=== PATIENT | male | born 1950 | race Caucasian/White ===

== ENCOUNTER 2018-11-23 09:52 | Emergency (ER) | payer MEDICARE ==
--- NOTE | 2018-11-23 10:20 | ED ---
Complex/Multi-Sys Presentation - HPI Summary HPI Summary: This pt is a 68 Y/O M presenting to [facility] accompanied by his with a CC of abdominal pain and lower extremity swelling. He states that his legs have been swollen for a week and has had intermittent abdominal pain. He also states that he has SOB while ambulating but states that he has no issues while lying down. He states that he has episodic L anterior chest pain that he believes is a result of nerve pain that has been present for a month. He denies any fever, chills, N/V, and headaches. He states that he has a PMHx of CAD, CHF, HTN, possible stage 4 kidney cancer, and anemia. - History Of Current Complaint Chief Complaint: EDShortnessOfBreath Hx Obtained From: Patient Onset/Duration: Gradual Onset, Lasting Weeks - 1, Still Present Timing: Constant Severity Currently: None Severity Initially: Moderate Aggravating Factor(s): movement causes SOB Alleviating Factor(s): lying down Associated Signs And Symptoms: Positive: SOB, Chest Pain, Edema, Abdominal Pain , Other - L neck pain. Negative: Headache, Nausea, Vomiting, Fever - Allergies/Home Medications Allergies/Adverse Reactions: Allergies Allergy/AdvReac Type Severity Reaction Status Date / Time plasma Allergy Severe anaphylaxis Uncoded 07/28/14 10:58 Home Medications: Home Medications Albuterol/Ipratropium RESP(NF) [Combivent Respimat(NF)] 1 puff INH QID 11/23/18 [History Confirmed 11/23/18] Cyclobenzaprine TAB* [Flexeril 10 MG TAB*] 10 mg PO TID PRN 11/23/18 [History Confirmed 11/23/18] Fluticasone NASAL SPRAY 50MCG* [Flonase NASAL SPRAY 50MCG*] 2 spray BOTH NARES DAILY 11/23/18 [History Confirmed 11/23/18] Isosorbide Mononitrate (NF) 60 mg PO DAILY 11/23/18 [History Confirmed 11/23/18] Nitroglycerin TAB 0.4 MG* 0.4 mg SL Q5M PRN 11/23/18 [History Confirmed 11/23/18 ] PMH/Surg Hx/FS Hx/Imm Hx Previously Healthy: Yes Endocrine/Hematology History: Reports: Hx Anticoagulant Therapy - COUMADIN, Hx Blood Transfusions, Hx Anemia, Hx Unexplained Bleeding - recurrent GI bleeding Denies: Hx Diabetes Cardiovascular History: Reports: Hx Angina, Hx Congestive Heart Failure, Hx Coronary Artery Disease, Hx Hypercholesterolemia - HLD, Hx Hypertension, Hx Valvular Heart Disease - AORTIC REPLACEMENT 2007 Denies: Hx Pacemaker/ICD Respiratory History: Reports: Hx Asthma, Hx Seasonal Allergies GI History: Reports: Hx Gastrointestinal Bleed - recurrent, Other GI Disorders - polyps/hemmorhoids Denies: Hx Gastroesophageal Reflux Disease History: Reports: Hx Chronic Renal Failure - stage III kidney failure Sensory History: Reports: Hx Contacts or Glasses Denies: Hx Hearing Aid Opthamlomology History: Reports: Hx Contacts or Glasses Psychiatric History: Reports: Hx Depression Denies: Hx Panic Disorder - Surgical History Surgery Procedure, Year, and Place: CABG x 3 vessels with aortic valve replacement and aneurysm repair, Bilateral Inguinal Hernia x2, Cholecystectomy Hx Anesthesia Reactions: No - Immunization History Date of Tetanus Vaccine: PT STATES UNSURE Date of Influenza Vaccine: 2012 Infectious Disease History: No Infectious Disease History: Reports: Hx Hepatitis - at age 21 Denies: Hx Clostridium Difficile, Hx Human Immunodeficiency Virus (HIV), Hx of Known/Suspected MRSA, Hx Shingles, Hx Tuberculosis, Traveled Outside the [place] in Last 30 Days - Social History Alcohol Use: None Alcohol Amount: "had to stop" 08/2013 Substance Use Type: Reports: None Smoking Status (MU): Former Smoker Type: Cigars Amount Used/How Often: quit in 1994 Have You Smoked in the Last Year: No Review of Systems Negative: Fever, Chills Positive: Chest Pain - Left Anterior Positive: Shortness Of Breath Positive: Abdominal Pain. Negative: Vomiting, Nausea Positive: Edema - Lower Extremity Negative: Headache All Other Systems Reviewed And Are Negative: Yes Physical Exam - Summary Physical Exam Summary: Appearance: The patient is well-nourished in no acute distress and in no acute pain. Skin: The skin is warm and dry and skin color reflects adequate perfusion. HEENT: The head is normocephalic and atraumatic. The pupils are equal and reactive. The conjunctivae are clear and without drainage. Nares are patent and without drainage. Mouth reveals moist mucous membranes and the throat is without erythema and exudate. The external ears are intact. The ear canals are patent and without drainage. The tympanic membranes are intact. Neck: The neck is supple with full range of motion and non-tender. There are no carotid bruits. There is a JVD that is mild. Respiratory: Chest is non-tender. Lungs are clear to auscultation and breath sounds are symmetrical and equal. Cardiovascular: Heart is regular rate and rhythm. There is no murmur or rub auscultated. There is mild bilateral pedal edema and pulses are symmetrical and equal. Abdomen: The abdomen is soft and non-tender. There are normal bowel sounds heard in all four quadrants and there is no organomegaly palpated. Musculoskeletal: There is no back tenderness noted. Extremities are non-tender with full range of motion. There is good capillary refill. There is mild bilateral pedal edema or calf tenderness elicited. Neurological: Patient is alert and oriented to person, place and time. The patient has symmetrical motor strength in all four extremities. Cranial nerves are grossly intact. Deep tendon reflexes are symmetrical and equal in all four extremities. Psychiatric: The patient has an appropriate affect and does not exhibit any anxiety or depression. Triage Information Reviewed: Yes Vital Signs On Initial Exam: Initial Vitals Temp Pulse Resp BP Pulse Ox 98.2 F 66 20 130/65 96 11/23/18 09:53 11/23/18 09:53 11/23/18 09:53 11/23/18 09:53 11/23/18 09:53 Vital Signs Reviewed: Yes Procedures - Sedation Patient Received Moderate/Deep Sedation with Procedure: No Diagnostics - Vital Signs Vital Signs Temp Pulse Resp BP Pulse Ox 11/23/18 09:53 98.2 F 66 20 130/65 96 - Laboratory Result Diagrams: 11/23/18 10:29 11/23/18 10:29 Lab Statement: Any lab studies that have been ordered have been reviewed, and results considered in the medical decision making process. - Radiology CXR Radiology Interpretation Completed By: Radiologist Summary of Radiographic Findings: Patient is status post tracer thoracotomy. Cardiomegaly is noted. No definite pneumonia is identified. ED physician has reviewed this report. - Ultrasound Renal US Ultrasound Interpretation Completed By: Radiologist Summary of Ultrasound Findings: No hydronephrosis of either kidney. Echogenic kidneys consistent with medical renal disease. Bilateral renal cysts are noted. ED physician has reviewed this report. - EKG 0958 Cardiac Rate: NL - 62 BPM EKG Rhythm: Sinus Rhythm EKG Comparison: No Significant Change - from previous EKG Summary of EKG Findings: NSR at BPM with a prolonged HI intervl, LVH with IVCD , LAD, and secondary repolarization. No Ectopy, No STEMI. Unchanged from previous EKGS. Interpreted by Dr. Marcelo Sanchez at 1001 11/23/2018. Complex Multi-Symp Course/Dx Course Of Treatment: Mr. Brown was found to be anemic, with an elevated BNP and renal failure. I consult with the hospitalist service and Dr. Berry evaluated the patient. He felt that the patient was stable for discharge although he certainly needed close follow-up. Dr. Berry arrange follow-up with Dr. Whipple and for dietary education. - Diagnoses Provider Diagnoses: Renal failure - Physician Notifications Admit/Transition Orders Completed By ED Provider: No Discharge ED - Sign-Out/Discharge Documenting (check all that apply): Patient Departure - discharge - Discharge Plan Condition: Stable Disposition: HOME Patient Education Materials: Chronic Kidney Disease (ED) Referrals: Zoya Farmer MD [Primary Care Provider] - 2 Days Elizabeth Whipple MD [Medical Doctor] - 11/28/18 9:00 am Additional Instructions: PLEASE RETURN TO THE ED IMMEDIATELY FOR WORSENING OR CONCERNING SYMPTOMS AND FOLLOW UP WITH YOUR PRIMARY CARE PHYSICIAN IN 1-3 DAYS. Please follow up with Dr. Whipple, nephrology, on 11/28 at 0900 for further treatments and care. She is located in the 3rd floor of the [facility]. - Billing Disposition and Condition Condition: STABLE Disposition: Home - Attestation Statements Document Initiated by Garret: Yes Documenting Scribe: Gregorio Cloud Provider For Whom Garret is Documenting (Include Credential): Marcelo Sanchez MD Scribe Attestation: I, Gregorio Cloud, scribed for Marcelo Sanchez MD on 11/23/18 at 1555. Scribe Documentation Reviewed: Yes Provider Attestation: The documentation as recorded by the Gregorio valerio accurately reflects the service I personally performed and the decisions made by me, Marcelo Sanchez MD Status of Scribcarlos Document: Viewed
[2018-11-23 10:44] LABS: ABS Basophils 0.1 10^3/ul (0-0.2); ABS Eosinophils 0.2 10^3/ul (0-0.6); ABS Lymphocytes 0.6 10^3/ul (1.0-4.8); ABS Monocytes 0.7 10^3/ul (0-0.8); ABS Neutrophils 4.2 10^3/ul (1.5-7.7); Eosinophil % 4.1 %; Hematocrit 21 % (42-52); Hemoglobin 7.3 g/dL (14.0-18.0); Lymphocyte % 10.4 %; Mean Corpuscular HGB Conc 35 g/dL (31-36); Mean Corpuscular Hemoglobin 32 pg (27-31); Mean Corpuscular Volume 91 fL (80-94); Mean Platelet Volume 7.7 fL (7.4-10.4); Platelet Count 134 10^3/uL (150-450); Red Blood Count 2.32 10^6 /uL (4.18-5.48); Red Cell Distribution Width 14 % (10-15); White Blood Count 5.8 10^3/uL (3.5-10.8)
[2018-11-23 11:03] LABS: Albumin 3.4 g/dL (3.2-5.2); Albumin/Globulin Ratio 1.4 (1-3); C Reactive Protein 1.59 mg/L (<8.01); Calcium 8.3 mg/dL (8.6-10.3); EGFR African American 18.1 (>60); Globulin 2.5 g/dL (2-4); Potassium 3.9 mmol/L (3.5-5.0); Total Bilirubin 0.7 mg/dL (0.2-1.0); Total Protein 5.9 g/dL (6.4-8.9)
[2018-11-23 11:05] LABS: Troponin I 0.03 ng/mL (<0.04)
[2018-11-23 11:12] LABS: INR 2.47 (0.82-1.09)
--- NOTE | 2018-11-23 13:01 | ADMNOTE ---
Subjective Date of Service: 11/23/18 Review of Systems - Measurements Intake and Output: Intake and Output Last 24 Hours 11/21/18 11/22/18 11/23/18 11/24/18 06:59 06:59 06:59 06:59 Weight 215 lb 4.8 oz Objective Vital Signs - 8 hr 11/23/18 11/23/18 11/23/18 09:53 10:23 10:31 Temperature 98.2 F Pulse Rate 66 59 Respiratory 20 18 Rate Blood Pressure 130/65 134/70 (mmHg) O2 Sat by Pulse 96 97 98 Oximetry 11/23/18 11/23/18 11/23/18 10:52 11:00 11:23 Temperature Pulse Rate 57 54 54 Respiratory 21 13 18 Rate Blood Pressure 142/67 133/66 (mmHg) O2 Sat by Pulse 97 97 95 Oximetry 11/23/18 11/23/18 11/23/18 11:52 12:00 12:23 Temperature Pulse Rate 53 53 56 Respiratory 21 12 12 Rate Blood Pressure 138/64 115/54 (mmHg) O2 Sat by Pulse 96 96 96 Oximetry Oxygen Devices in Use Now: None Result Diagrams: 11/23/18 10:29 11/23/18 10:29 Assess/Plan/Problems-Billing Assessment:
[2018-11-23 13:29] LABS: Ferritin 103.3 ng/mL (24-336)
--- NOTE | 2018-11-23 14:35 | CONS ---
CC: Dr. Whipple, [facility]; Dr. Farmer CONSULTATION REPORT: DATE OF CONSULT: 11/23/18 HISTORY OF PRESENT ILLNESS: Dr. Marcelo Sanchez has kindly asked me to see this patient and I examined him on 11/23/18. He presented with about a week or so history of increased shortness of breath and edema which has been intermittent, some abdominal bloating. It has become harder for him to do any s trenuous activities. He is a relatively sedentary man. 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 He is known to have chronic kidney disease. He saw Dr. Montana, a typewriter assembly and parts inspector in [place] a number of mo nths ago. The patient reports many episodes of nocturia every night and some frequency during the day. PAST MEDICAL HISTORY: The patient has had coronary bypass grafting and mechanical aortic valve 11 ye ars ago. He has a history of peptic ulcer disease and had a documented duodenal ulcer in 2010. He w as told not to take aspirin. He has paroxysmal atrial fibrillation and has been on warfarin for some time. His target goal has been changed to 2 to 3. He has had cholecystectomy, history of nephrolithiasis, history of hypertension. CURRENT MEDICATIONS AT HOME: 1. Atorvastatin 40 mg daily. 2. Lisinopril 20 mg daily. 3. Metoprolol tartrate 12.5 mg b.i.d. 4. Warfarin 8 mg 5 days a week and 6 to 8 mg on Monday and . 5. Amlodipine 10 mg daily. 6. Hydralazine 50 mg t.i.d. 7. Albuterol/ipratropium 1 puff q.i.d. 8. Cyclobenzaprine 10 mg t.i.d. p.r.n. 9. Fluticasone nasal spray 2 sprays both nares daily. 10. Isosorbide mononitrate 60 mg daily. 11. Nitroglycerin 0.4 mg sublingual q.5 minutes p.r.n. SOCIAL HISTORY: He lives with his who is his surrogate. He does not abuse alcohol or smoke. Briana gonzalez is a vegan. REVIEW OF SYSTEMS: A 14-point review of systems was done. Other than the pertinent positives, other raymundo unremarkable. PHYSICAL EXAM: Temperature 98.2, heart rate 56, respirations 12, O2 saturation 96%, blood pressure 1 15/54. Height 5 feet 11 inches, weight 215 pounds, BMI 30.0. He is a well-developed, well-nourished man, in no acute distress. He is lying supine on the stretcher, in fair spirits. He looks comfortab le. He is breathing quietly. HEENT: There was some pallor. Mouth and pharynx were clear. Neck wa s supple. No JVD, adenopathy, or thyromegaly. Heart was regular with a soft mechanical click across the precordium. Lungs were clear to auscultation and percussion. Abdomen was obese. There were no masses or organomegaly. There was no pedal edema at all at this time. There was no calf tenderness . There was some pallor of the extremities. IMPRESSION AND PLAN: Chronic renal failure. The patient states his GFR was 19 when he saw the nephr ologist, it is now 15.0. He will see Dr. Whipple on 11/28/18 at 9 a.m. I will try to have the dietiti an see him to instruct him on a renal diet, although I suspect his diet is very close to a renal diet at the present time. His INR was in his target range, it is 2.47. I do not make any changes in this. I did warn him if briana gonzalez made a drastic change in his diet, then he would need to have his INR checked a few days to week af ter that. Ultrasound was compatible with medical renal disease. There were small bilateral renal cysts. Ultra sound of the bladder showed residual of 150 mL, although this may not have been a true postvoid resid ual and it is possible postvoid residual is less. The patient was discharged from the ED in good condition. His was present for the instructions. [id number]/[facility] #: [id number]
[2018-11-23 14:39] VITALS: BP 144/67
== END 2018-11-23 14:30 | disposition home or self-care (01) ==
LOC: ED 09:52
DX: I13.0 Hypertensive heart and chronic kidney disease with heart failure and stage 1 through stage 4 chronic kidney disease, or unspecified chronic kidney disease (principal); N18.3 Chronic kidney disease, stage 3 (moderate); I50.9 Heart failure, unspecified; I48.0 Paroxysmal atrial fibrillation; I25.10 Atherosclerotic heart disease of native coronary artery without angina pectoris; E78.00 Pure hypercholesterolemia, unspecified; F32.9 Major depressive disorder, single episode, unspecified; Z95.2 Presence of prosthetic heart valve; Z95.1 Presence of aortocoronary bypass graft; Z90.49 Acquired absence of other specified parts of digestive tract; Z87.891 Personal history of nicotine dependence; Z79.01 Long term (current) use of anticoagulants; Z79.899 Other long term (current) drug therapy; Z88.8 Allergy status to other drugs, medicaments and biological substances
CPT/HCPCS: 36415; 71046; 76775; 80053; 82728; 83605; 83880; 84484; 85025; 85379; 85610; 86140; 87040; 93005; 99283

== ENCOUNTER 2019-03-08 20:48 | Inpatient (IN) | payer MEDICARE ==
--- OUTSIDE RECORDS SUMMARY | 2019-03-08 20:52 | XMS REPORT | Summary of Care ---
:1950 Author Organization [facility] Address [address] [facility] [place] [address] Care Team Providers Name Role Phone Zoya Farmer MD Primary Care Provider Reason for Visit Reason Comments Other pt presents for cardiac clearance to start dialysis. Encounter Details Date Type Department Care Team Description 01/23/2019 Office Visit Lisa Parr, Pre-operative clearance (Primary Dx); Cardiology BIG DATA LEAD Coronary artery disease involving wainwright coronary artery of wainwright heart without angina pectoris; [address] [facility] S/P AVR (aortic valve replacement) [place] [address] [place] [address] [phone] Allergies Active Allergy Reactions Severity Noted Date Comments Plasma Human Anaphylaxis High 01/15/2011 Pt with airway closing, periorbital edema, systemic red raised rash 15 minutes in to FFP transfusion documented as of this encounter (statuses as of 01/23/2019) Medications Medication Sig Dispensed Refills Start Date End Date Status fluticasone INHALE 2 SPRAYS 1 Bottle 1 05/21/2014 Active (FLONASE) 50 INTO THE MCG/ACT Nasal NOSTRIL(S) EVERY Suspension DAY lisinopril Take 1 Tab by 90 Tab 3 03/06/2018 Active (PRINIVIL, ZESTRIL) mouth DAILY. 20 MG Oral Tab ipratropium-albuter Take 1 Puff by 1 Inhaler 11 03/22/2018 Active ol (COMBIVENT inhalation FOUR RESPIMAT) 20-100 TIMES DAILY. MCG/ACT Inhalation Aero Soln isosorbide Take 1 Tab by 90 Tab 3 04/03/2018 Active MONOnitrate (IMDUR) mouth DAILY. 60 MG Oral TABLET SR 24 HRIndications: Coronary artery disease involving wainwright coronary artery of wainwright heart without angina pectoris warfarin (COUMADIN) Take 1.5-2 Tabs 180 Tab 3 05/03/2018 Active 4 MG Oral by mouth DAILY. TabIndications: S/P As directed AVR which is 6mg Sun/Thur and 8mg remaining days of week nitroglycerin Place 1 Tab 25 Tab 2 07/23/2018 Active (NITROSTAT) 0.4 MG under tongue Sublingual SL EVERY FIVE TabIndications: MINUTES Coronary artery NEEDED for chest disease involving pain. wainwright coronary artery of wainwright heart without angina pectoris amLodipine Take 1 Tab by 90 Tab 3 08/13/2018 Active (NORVASC) 10 MG mouth DAILY. Oral Tab Ferrous Sulfate Take 65 mg by 0 Active (IRON SUPPLEMENT mouth TWICE PO) DAILY. atorvastatin Take 1 Tab by 90 Tab 3 12/11/2018 Active (LIPITOR) 40 MG mouth DAILY. Oral TabIndications: Coronary artery disease involving wainwright coronary artery of wainwright heart with angina pectoris (HCC) torsemide (DEMADEX) Take 80 mg by 0 Active 20 MG Oral Tab mouth DAILY. epoetin homero-epbx Inject 10,000 0 12/11/2018 Active (RETACRIT) 39839 Units beneath UNIT/ML Injection the skin EVERY Solution MONDAY AND MONDAY. hydrALAZINE TAKE 1 TABLET BY 90 Tab 1 01/14/2019 Active (APRESOLINE) 50 MG MOUTH THREE Oral Tab TIMES DAILY hydrALAZINE Take 1 Tab by 90 Tab 6 01/14/2019 Active (APRESOLINE) 50 MG mouth THREE Oral Tab TIMES DAILY. metoprolol Take 0.5 Tabs by 90 Tab 3 01/23/2019 Active succinate (TOPROL mouth DAILY. XL) 25 MG Oral TABLET SR 24 HR metoprolol Take 0.5 Tabs by 90 Tab 3 11/19/2018 Discontinued (LOPRESSOR) 25 MG mouth TWICE 9 Oral Tab DAILY. 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 CHADS2 score of 1 for hypertension [id number] score of 3 for hypertension, vascular disease, age > 65 No significant medication interactions Updated Referral: 02/24/16, 03/27/17, 05/2018 Updated ACS Orders: 03/09/16, 04/19/17, 07/04/18 S/P CABG (coronary artery bypass graft) 06/09/2010 Overview: 10/25/07 () CABG X3 with LUCIO to LAD, SVG to Diag, SVG to PDA S/P AVR (aortic valve replacement) 05/21/2009 Overview: 10/25/07 ()Aortic Valve and Aortic Root Replacement with [address] Higinio' s Composite aortic valve and Valsalva graft (Bentall procedure) CAD (coronary artery disease) 10/23/2007 Overview: 10/06/07 Cath () Severe two-vessel coronary artery disease involving the left anterior descending and right coronary arteries Nephrolithiasis documented as of this encounter (statuses as of 01/23/2019) Resolved Problems Problem Noted Date Resolved Date Nonspecific (abnormal) findings on radiological and other 10/26/20102011 examination of other intrathoracic organs Mediastinal hematoma 01/06/2010 10/20/2015 Mitral valve disorders(424.0) 11/02/2007 06/09/2010 Aortic valve disorders 10/23/2007 06/09/2010 documented as of this encounter (statuses as of 01/23/2019) Immunizations Name Administration Dates Next Due Influenza (IM) Preservative Free 11/21/2013, 11/17/2012, 11/23/2011, 12/04/2009 Influenza Vaccine High Dose 11/21/2018, 11/14/2016, 11/21/2015 PNEUMOCOCCAL POLYSACCHARIDE VACCINE 10/19/2017, 12/04/2009 Pneumococcal Conjugate(13 Valent) 10/20/2015 documented as of this encounter Social History Tobacco Use Types Packs/Day Years Used Date Former Smoker 6 Quit: 02/13/1994 Smokeless Tobacco: Never Used Comments: quit many years ago Alcohol Use Drinks/Week oz/Week Comments Yes 1 Glasses of wine 1.0 stopped drinking Sex Assigned at Date Recorded Not on file Job Start Date Occupation Industry Not on file Not on file Not on file Travel History Travel Start Travel End No recent travel history available. documented as of this encounter Last Filed Vital Signs Vital Sign Reading Time Taken Comments Blood Pressure 110/60 01/23/2019 1:13 PM EST Pulse 50 01/23/2019 1:13 PM EST Temperature - - Respiratory Rate - - Oxygen Saturation 99% 01/23/2019 1:13 PM EST Inhaled Oxygen Concentration - - Weight 95 kg (209 lb 6.4 oz) 01/23/2019 1:13 PM EST Height 180.3 cm (5' 11") 01/23/2019 1:13 PM EST Body Mass Index 29.21 01/23/2019 1:13 PM EST documented in this encounter Patient Instructions Patient InstructionsHuLisa wolf CRNP - 01/23/2019 1:00 PM ESTMay proceed with surgery at moderate risk Will stop the metoprolol and change to Toprol XL 25 mg half a table once a day at night Follow up in 8 week with EKG, or sooner if there are any changes in your symptoms. Continue with strict risk factor modification; especially increasing cardiovascular activity, low fat low cholesterol diet and weight management. Would like to see Blood pressure less than 130/80 and trying to keep LDL less than 70. Any further questions or concerns contact our office. documented in this encounter Plan of Treatment Date Type Specialty Care Team Description 02/20/2019 Office Visit Family [facility] Zoya Farmer MD [address] [place] [address] [phone] 02/20/2019 AntiCoag Anticoagulation 03/27/2019 Office Visit Cardiology Lisa Lima CRNP [address] [address] Name Type Priority Associated Diagnoses Order Schedule AMBULATORY 12 LEAD EKG EKG Routine Pre-operative clearance Ordered: 2018 (GLOBAL) Health Maintenance Due Date Last Done Comments DTaP/Tdap/Td Vaccines (1 - 1960 Tdap) ZOSTER IMMUNIZATION SERIES 05/18/1999 (1 of 2) AAA SCREENING/SURVEILLANCE 2014 10/09/2012, 12/28/2011, 08/13/2008 MEDICARE ANNUAL WELLNESS 12/22/2016 12/23/2015 VISIT DEPRESSION SCREENING 06/02/2019 06/01/2018, 04/12/2017 FALL RISK ASSESSMENT 06/02/2019 06/01/2018, 06/01/2018 DIABETES SCREENING 09/06/2019 09/05/2018, 06/01/2018, 04/19/2018, Additional history exists LIPID DISORDER SCREENING 12/12/2019 12/11/2018, 09/05/2018, 04/19/2018, Additional history exists Colonoscopy 04/05/2022 04/05/2012, 04/03/2012, 04/03/2012, Additional history exists PNEUMOCOCCAL 65+YRS Completed 10/19/2017, 10/20/2015, 12/04/2009 INFLUENZA VACCINE Completed 11/21/2018, 11/14/2016, 11/21/2015, Additional history exists HEPATITIS A IMMUNIZATION Aged Out No longer eligible SERIES based on patient's age to complete this topic HPV IMMUNIZATION SERIES Aged Out No longer eligible based on patient's age to complete this topic MENINGOCOCCAL VACCINE IMM Aged Out No longer eligible based on patient's age to complete this topic documented as of this encounter Goals Goal Patient Goal Associated Recent Patient-Stated? Author Type Problems Progress Blood Pressure Blood 110/60 No [place], < 140/90 Pressure (01/23/2019 Zoya Singh, 1:13 PM EST) Note: This is an individualized treatment (blood pressure) goal for Dominic Pazcasimiro: Displayed above (on the left) is your goal for blood pressure control. Your most recent blood pressure is also shown above, on the right. You should try to achieve blood pressures that are lower than your goal listed above (on the left). Take all prescribed medications as Self-management Zoya Lyles MD directed Note: This is an individualized self-management goal for Dominic Brown: Please take all prescribed medications as directed. 1. Do not skip doses. If you cannot afford your medications, talk with your doctor. 2. Use a pill reminder system such as a pill box if needed. Your pharmacist can help you with this. 3. Contact your Pharmacy 5 days before your medication runs out. If you cannot take your medications for any reasons, talk with your doctor. 4. Please bring all of your medication bottles and inhalers (or a list of all your medications/inhalers) with you to every visit. Potential barriers to meeting all of your care plan goals will continue to be addressed on an ongoing basis. documented as of this encounter Implants Implanted Type Area Application Development Director Device Shelf Model / Identifier Expiration Date Serial / Lot Aortic Stjude Conduit Rotat 25 - [id number], [id number] / Implanted: Qty: 1 on 10/25/2007 at [facility]. / [id number] documented as of this encounter Results Not on filedocumented in this encounter Visit Diagnoses Diagnosis Pre-operative clearance Preoperative examination, unspecified Coronary artery disease involving wainwright coronary artery of wainwright heart without angina pectoris S/P AVR (aortic valve replacement) Heart valve replaced by other means documented in this encounter Insurance Payer Benefit Plan / Subscriber ID Effective Dates Phone Address Type Group ChannelAdvisor MEDICARE EXCELLUS xxxxxxxxxxxx Effective for [employer] MEDICARE BLUE all dates PPO [phone]) Guarantor Name Account Type Relation to Date of Phone Billing Patient Address Dominic Brown Personal/Family 1950 [address] [facility] (Home) [address] [phone] [place], [place] (Work) [id number] documented as of this encounter
--- OUTSIDE RECORDS SUMMARY | 2019-03-08 20:52 | XMS REPORT | Continuity of Care Document ---
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 Medicine Problems Active Problems Provider Date Chronic kidney disease stage 4 Elizabeth Kitchen MD Onset: 11/28/2018 Anemia of chronic renal failure Elizabeth Kitchen MD Onset: 11/28/2018 Essential hypertension Elizabeth Kitchen MD Onset: 11/28/2018 Dyspnea Elizabeth Kitchen MD Onset: 11/30/2018 Malaise and fatigue Elizabeth Kitchen MD Onset: 11/30/2018 Chronic ischemic heart disease, unspecified Elizabeth Kitchen MD Onset: 2018 Anemia Elizabeth Kitchen MD Onset: 11/30/2018 Social History Type Date Description Comments Sex Unknown ETOH Use Denies alcohol use Recreational Drug Use Edible marijuana Document: 12/24/18 - History GS Tobacco Use Start: Unknown End: Patient is a former Unknown smoker Smoking Status Reviewed: 12/27/18 Patient is a former smoker Exercise Type/Frequency Exercises rarely Allergies, Adverse Reactions, Alerts Active Allergies Reaction Severity Comments Date Blood Plasma Anaphylaxis Severe 02/25/2016 Medications Active Medications SIG Qnty Indications Ordering Date Provider Metoprolol Succinate Ttake 1/2 tab daily 90tabs Elizabeth Kitchen, 01/29/2019 ER bt mouth MD 25mg Tablets ER 24HR Torsemide 4 tab every day 120tabs R60.1 Elizabeth Kitchen, 12/13/2018 20mg MD Tablets Albuterol-Ipratropiu as needed Unknown m Charlotte Amlodipine Besylate 1 by mouth every Unknown day 10mg Tablets Atorvastatin Calcium 1 by mouth every Unknown day 40mg Tablets Fluticasone 2 sprays each Unknown Propionate nostril daily as 50mcg/Act needed Suspension Hydralazine HCL 1 by mouth three Unknown 50mg times a day Tablets Lisinopril 1 by mouth every Unknown 20mg day Tablets Warfarin Sodium 1 by mouth every Unknown 4mg night or as Tablets directed Cialis one tab 30 minutes Unknown 20mg Tablets prior to intercourse Nitrostat one sl q5min up to Unknown 0.4mg 3 doses as needed Tablets Sub Ferrous Gluconate 2 a day Unknown History Medications Cyclobenzaprine HCL take 1 tab by 90tabs Elizabeth Kitchen MD 11/28/2018 - 10mg mouth 2-3 times 11/28/2018 Tablets a day as needed Medications Administered in Office Medication SIG Qnty Indications Ordering Provider Date Inj, Regadenoson, 0.1 MG Reza Nolasco, DO [facility] 02/29/2016 Injection Aminophylline Reza Nolasco DO [facility] 02/29/2016 Injection Technetium TC 99M Reza Nolasco [facility] 02/29/2016 Tetrofosmin, Per Unit Dose Up To 40 Millicuries Injection Immunizations Description No Information Available Vital Signs Date Vital Result Comment 01/29/2019 10:41am Height 71 inches 5'11" Weight 208.00 lb Heart Rate 53 /min BP Systolic Sitting 124 mmHg L arm BP Diastolic Sitting 61 mmHg L arm O2 % BldC Oximetry 98 % BMI (Body Mass Index) 29.0 kg/m2 12/27/2018 10:35am Height 71 inches 5'11" Weight 217.00 lb Heart Rate 49 /min BP Systolic Sitting 137 mmHg right arm large cuff BP Diastolic Sitting 62 mmHg right arm large cuff O2 % BldC Oximetry 96 % room air BMI (Body Mass Index) 30.3 kg/m2 Results Test Acquired Date Facility Test Result H/L Range Note Hemoglobin/Hem 01/29/2019 [facility] Hemoglobin 10.6 g/dL Low 14.0-18.[address] [address] [phone] Hematocrit 31 % Low 42-52 Hemoglobin/Hematocrit 01/23/2019 [facility] Hemoglobin 10.4 Low 14.0-18.[address] g/dL [place], [place] [id number] [phone] Hematocrit 30 % Low 42-52 Hemoglobin/Hematocrit 01/15/2019 [facility] Hemoglobin 10.5 Low 14.0-18.[address] g/dL [place], [place] [id number] [phone] Hematocrit 30 % Low 42-52 Hemoglobin/Hematocrit 01/09/2019 [facility] Hemoglobin 10.2 Low 14.0-18.[address] g/[place] [address] [phone] Hematocrit 30 % Low 42-52 Renal Function 01/01/2019 [facility] Albumin 4.2 g/dL Normal 3.2-5.[address] [place] [address] [phone] Calcium 8.7 mg/dL Normal 8.6-10.3 Co2 Carbon Dioxide 27 mmol/L Normal 22-32 Chloride 104 mmol/L Normal 101-111 Glucose 128 mg/dL High 70-100 Phosphorus 4.1 mg/dL Normal 2.5-5.0 Potassium 4.0 mmol/L Normal 3.5-5.0 Sodium 141 mmol/L Normal 135-145 Blood Urea Nitrogen BUN 96 mg/dL High 6-24 Creatinine 01/01/2019 [facility] Creatinine 4.73 mg/dL High 0.67-1.[address] [place] [address] [phone] Egfr Non- 12.3 >60 Egfr 14.9 >60 1 Hemoglobin/Hematocrit 01/01/2019 [facility] Hemoglobin 10.7 Low 14.0-18.[address] g/[place] [address] [phone] Hematocrit 32 % Low 42-52 Hemoglobin/Hematocrit 12/25/2018 [facility] Hemoglobin 9.8 Low 14.0-18.[address] g/[place] [address] [phone] Hematocrit 30 % Low 42-52 Laboratory test 12/18/2018 [facility] Iron 50 g/dL Normal 50 -[address] [facility] [place] [address] [phone] Iron & Iron 12/18/2018 [facility] Unsaturated < 320 Binding [address] [facility] Iron Binding g/[place] [address] [phone] Total Iron Binding Capacity 335 g/dL Normal 250-450 Transferrin 239 mg/dL Normal 203-362 % Iron Saturation 15 % Normal 15-55 Laboratory test 12/18/2018 [facility] Ferritin 50.0 ng/mL Normal 24-336 finding [address] [place] [address] [phone] Creatinine 12/18/2018 [facility] Creatinine 4.54 mg/dL High 0.67-1.17 [address] [place] [address] [phone] Egfr Non- 12.9 >60 Egfr 15.6 >60 2 Renal Function 12/18/2018 [facility] Albumin 3.9 g/dL Normal 3.2-5.2 Panel [address] [place] [address] [phone] Calcium 8.5 mg/dL Low 8.6-10.3 Co2 Carbon Dioxide 28 mmol/L Normal 22-32 Chloride 106 mmol/L Normal 101-111 Glucose 93 mg/dL Normal 70-100 Phosphorus 4.3 mg/dL Normal 2.5-5.0 Potassium 4.0 mmol/L Normal 3.5-5.0 Sodium 141 mmol/L Normal 135-145 Blood Urea Nitrogen BUN 68 mg/dL High 6-24 Urinalysis Profile 12/18/2018 [facility] Urine Color Straw [address] [place] [address] [phone] Urine Appearance Clear Urine Specific [address] 1.009 Low 1.010-1.030 Urine pH 5.0 Normal 5-9 Urine Urobilinogen Negative Negative Urine Ketones Negative Negative Urine Protein 2+(100 mg/dL) Abnormal Negative Urine Leukocytes Negative Negative Urine Blood Negative Negative Urine Nitrite Negative Negative Urine Bilirubin Negative Negative Urine Glucose Negative Negative Urine White Blood Cell Absent Absent Urine Red Blood Cell Absent Absent Urine Bacteria Absent Absent Laboratory test 12/18/2018 [facility] Creatinine Random 53.86 mg /dL finding [address] [facility] [place] [address] [phone] Total Protein Random Urine 105 mg/dL Hemoglobin/Hematocrit 12/18/2018 [facility] Hemoglobin 8.9 Low 14.0-18.0 101 g/[place] [address] [phone] Hematocrit 27 % Low 42-52 CBC No Diff 12/18/2018 [facility] White Blood 4.5 10^3/uL Normal 3.5-10.8 [address] [place] [address] [phone] Red Blood Count 2.91 10^6/uL Low 4.18-5.48 Hemoglobin 9.1 g/dL Low 14.0-18.0 Hematocrit 27 % Low 42-52 Mean Corpuscular Volume 93 fL Normal 80-94 Mean Corpuscular Hemoglobin 31 pg Normal 27-31 Mean Corpuscular HGB Conc 34 g/dL Normal 31-36 Red Cell Distribution Width 14 % Normal 10-15 Platelet Count 137 10^3/uL Low 150-450 Mean Platelet Volume 8.5 fL Normal 7.4-10.4 Laboratory test 12/18/2018 [facility] Complement C3 106 mg/dL 75 - [address] [place] [address] [phone] Complement C4 23 mg/dL 14 - 40 4 Neutrophil Cytoplasmic 12/18/2018 [facility] C-Anca [place] [address] [phone] P-Anca Negative Negative 5 [place]/Lambda Free 12/18/2018 [facility] [place] Free 15.5 mg/dL Abnormal 6 [place] [address] [phone] Lambda Free Light Chain 5.20 mg/dL Abnormal 7 [place]/Lambda Free Light Chain 2.98 Abnormal 8 Protein 12/18/2018 [facility] Total 6.5 g/dL 6.3 - Electrophoresis Protein(Pep) 7.9 [place] [address] [phone] Albumin 3.4 g/dL 3.4-4.7 Alpha-1 Globulin 0.3 g/dL 0.1-0.3 Alpha-2 Globulin 0.9 g/dL 0.6-1.0 Beta Globulin 0.9 g/dL 0.7-1.2 Gamma Globulin 1.0 g/dL 0.6-1.6 Albumin/Globulin Ratio 1.09 Impression See Comment 9 Hemoglobin/Hematocrit 12/13/2018 [facility] Hemoglobin 8.4 Low 14.0-18.[address] g/[place] [address] [phone] Hematocrit 25 % Low 42-52 CBC No Diff 11/28/2018 [facility] White Blood 6.5 10^3/uL Normal 3.5-10.[address] [place] [address] [phone] Red Blood Count 2.69 10^6/uL Low 4.18-5.48 Hemoglobin 8.4 g/dL Low 14.0-18.0 Hematocrit 25 % Low 42-52 Mean Corpuscular Volume 93 fL Normal 80-94 Mean Corpuscular Hemoglobin 31 pg Normal 27-31 Mean Corpuscular HGB Conc 34 g/dL Normal 31-36 Red Cell Distribution Width 14 % Normal 10-15 Platelet Count 165 10^3/uL Normal 150-450 Mean Platelet Volume 8.6 fL Normal 7.4-10.4 Comp Metabolic 11/28/2018 [facility] Sodium 140 mmol/L Normal 135-[address] [place] [address] [phone] Potassium 4.2 mmol/L Normal 3.5-5.0 Chloride 108 mmol/L Normal 101-111 Co2 Carbon Dioxide 23 mmol/L Normal 22-32 Anion Gap 9 mmol/L Normal 2-11 Glucose 84 mg/dL Normal 70-100 Blood Urea Nitrogen 49 mg/dL High 6-24 Creatinine 4.33 mg/dL High 0.67-1.17 BUN/Creatinine Ratio 11.3 Normal 8-20 Calcium 8.7 mg/dL Normal 8.6-10.3 Total Protein 6.3 g/dL Low 6.4-8.9 Albumin 3.8 g/dL Normal 3.2-5.2 Globulin 2.5 g/dL Normal 2-4 Albumin/Globulin Ratio 1.5 Normal 1-3 Total Bilirubin 0.80 mg/dL Normal 0.2-1.0 Alkaline Phosphatase 54 U/L Normal 34-104 Alt 18 U/L Normal 7-52 Ast 19 U/L Normal 13-39 Egfr Non- 13.7 >60 Egfr 16.5 >60 11 Iron & Iron Binding 11/28/2018 [facility] Iron 76 g/dL Normal 50-[address] [place] [address] [phone] Unsaturated Iron Binding < 328 g/dL Total Iron Binding Capacity 343 g/dL Normal 250-450 Transferrin 245 mg/dL Normal 203-362 % Iron Saturation 22 % Normal 15-55 Laboratory test 11/28/2018 [facility] Vitamin D 16.6 Low 20- 50 [address] Total 25(Oh) ng/[place] [address] [phone] Pthi 11/28/2018 [facility] Calcium (PTH 8.6 mg/dL Normal 8.6- 10.[address] Intact) [place] [address] [phone] PTH Intact 182.4 pg/mL High 12-88 Urinalysis Profile 11/28/2018 [facility] Urine Color Yellow [address] [place] [address] [phone] Urine Appearance Clear Urine Specific [address] 1.011 Normal 1.010-1.030 Urine pH 6.0 Normal 5-9 Urine Urobilinogen Negative Negative Urine Ketones Negative Negative Urine Protein 2+(100 mg/dL) Abnormal Negative Urine Leukocytes Negative Negative Urine Blood Negative Negative Urine Nitrite Negative Negative Urine Bilirubin Negative Negative Urine Glucose Negative Negative Urine White Blood Cell Trace(0-5/hpf) Absent Urine Red Blood Cell Absent Absent Urine Bacteria Absent Absent Urine Squamous Epithelial Cell Present Abnormal Absent Laboratory test 11/28/2018 [facility] Total Protein 208 mg/dL finding [address] [place] [address] [phone] Creatinine Random Urine 84.56 mg/dL 13 Urine Culture And 11/28/2018 [facility] Urine Culture SEE RESULT [address] [place] [address] [phone] 1 Because ethnic data is not always readily available, this report includes an eGFR for both -Americans and non- Americans. The National Kidney Disease Education Program (NKDEP) does not endorse the use of the MDRD equation for patients that are not between the ages of 18 and 70, are , have extremes of body size, muscle mass, or nutritional status, or are non- or non-. According to the National Kidney Foundation, irrespective of diagnosis, the stage of the disease is based on the level of kidney function: Stage Description GFR(mL/min/1.73 m(2)) 1 Kidney damage with normal or decreased GFR 90 2 Kidney damage with mild decrease in GFR 60-89 3 Moderate decrease in GFR 30-59 4 Severe decrease in GFR 15-29 5 Kidney failure <15 (or dialysis) 2 Because ethnic data is not always readily available, this report includes an eGFR for both -Americans and non- Americans. The National Kidney Disease Education Program (NKDEP) does not endorse the use of the MDRD equation for patients that are not between the ages of 18 and 70, are , have extremes of body size, muscle mass, or nutritional status, or are non- or non-. According to the National Kidney Foundation, irrespective of diagnosis, the stage of the disease is based on the level of kidney function: Stage Description GFR(mL/min/1.73 m(2)) 1 Kidney damage with normal or decreased GFR 90 2 Kidney damage with mild decrease in GFR 60-89 3 Moderate decrease in GFR 30-59 4 Severe decrease in GFR 15-29 5 Kidney failure <15 (or dialysis) 3 Test Performed by: [place] [address] Curtain Roller Assembler: Migel Quarles M.D. Ph.D.; CLIA# [id number] 4 Test Performed by: [place] [address] [employer] Roller Assembler: Migel Quarles M.D. Ph.D.; CLIA# [id number] 5 Negative for cANCA and pANCA patterns by immunofluorescence. ADDITIONAL INFORMATION This test was developed and its performance characteristics determined by [facility] in a manner consistent with CLIA requirements. This test has not been cleared or approved by the U.S. Food and Drug Administration. Test Performed by: [place] [address] [employer] Roller Assembler: Migel Quarles M.D. Ph.D.; CLIA# [id number] 6 REFERENCE VALUE 0.3300-1.94 7 REFERENCE VALUE 0.5700-2.63 8 Elevated free light chain ratios between 1.66 and 3.00 may occur due to polyclonal hypergammaglobulinemia or impaired renal clearance. An isolated increased free light chain ratio in this range should be interpreted with caution, and clinical correlation is recommended. REFERENCE VALUE 0.2600-1.65 Test Performed by: [place] [address] [employer] Roller Assembler: Migel Quarles M.D. Ph.D.; CLIA# [id number] 9 RESULT: No apparent monoclonal protein on serum electrophoresis. Test Performed by: [place] [address] [employer] Roller Assembler: Migel Quarles M.D. Ph.D.; CLIA# [id number] 10 CALL RESULTS TO ONCOLOGY [id number] 11 Because ethnic data is not always readily available, this report includes an eGFR for both -Americans and non- Americans. The National Kidney Disease Education Program (NKDEP) does not endorse the use of the MDRD equation for patients that are not between the ages of 18 and 70, are , have extremes of body size, muscle mass, or nutritional status, or are non- or non-. According to the National Kidney Foundation, irrespective of diagnosis, the stage of the disease is based on the level of kidney function: Stage Description GFR(mL/min/1.73 m(2)) 1 Kidney damage with normal or decreased GFR 90 2 Kidney damage with mild decrease in GFR 60-89 3 Moderate decrease in GFR 30-59 4 Severe decrease in GFR 15-29 5 Kidney failure <15 (or dialysis) 12 Total 25-Hydroxyvitamin D2 and D3 (25-OH-VitD) <10 ng/mL (severe deficiency) 10-19 ng/mL (mild to moderate deficiency) 20-50 ng/mL (optimum levels) 51-80 ng/mL (increased risk of hypercalciuria) >80 ng/mL (toxicity possible) 13 11/28/18 (MonNov 28) 10:38 AM ELIZABETH KITCHEN (Nephrology,) please report as urine protein: creatinine ratio ( random urine ) 14 SEE RESULT BELOW Name: ADRIÁN [place] : [address]: Elizabeth Kitchen MD Acct: [id number] Unit: [id number] AGE: 68 Location: LAB Re11/28/18 SEX: M Status: REG REF SPEC: [id number] RELL: 11/28/[address]: Elizabeth Kitchen MD REQ: [id number] RECD: 11/28/18 STATUS: COMP _ SOURCE: URINE SPDESC: ORDERED: Urine Culture Procedure Result Reported Site Urine Culture Final 11/29/18- 1218 ML No Growth (<1,000 CFU/mL) * ML - Main Lab . END OF REPORT DEPARTMENT OF PATHOLOGY, [address] [place] [address] Chino Giles M.D. Director [facility] # [id number] Procedures Description No Information Available Medical Devices Description No Information Available Encounters Type Date Location Provider Dx Diagnosis Office Visit 12/27/2018 [facility] Nephrology Elizabeth Kitchen MD I12.0 Hyp chr kidney 10:30a disease w stage 5 chr kidney disease or Esrd N18.5 Chronic kidney disease, stage 5 D63.1 Anemia in chronic kidney disease I12.9 Hypertensive chronic kidney disease w stg 1-4/unsp chr kdny R60.1 Generalized edema Office Visit 12/24/2018 [facility] Reza Rodrigues N18.6 End stage renal Of [facility] MD Crescencio, disease FACS Office Visit 12/13/2018 10:30a [facility] Nephrology Elizabeth Kitchen N18.5 Chronic kidney MD disease, stage 5 R60.1 Generalized edema D63.1 Anemia in chronic kidney disease K59.00 Constipation, unspecified Office Visit 12/06/2018 10:30a [facility] Nephant Kitchen I12.9 Hypertensive MD chronic kidney disease w stg 1-4/unsp chr kdny N18.4 Chronic kidney disease, stage 4 (severe) D63.1 Anemia in chronic kidney disease R53.1 Weakness Office Visit 11/30/2018 9:00a [facility] Nephant Kitchen MD D63.1 Anemia in chronic kidney disease I12.9 Hypertensive chronic kidney disease w stg 1-4/unsp chr kdny N18.4 Chronic kidney disease, stage 4 (severe) R06.02 Shortness of breath R53.1 Weakness D64.9 Anemia, unspecified I10 Essential (primary) hypertension I25.9 Chronic ischemic heart disease, unspecified Office Visit 11/28/2018 9:00a [facility] Nephrology Elizabeth Kitchen MD D63.1 Anemia in chronic kidney disease R06.02 Shortness of breath I12.9 Hypertensive chronic kidney disease w stg 1-4/unsp chr kdny N18.4 Chronic kidney disease, stage 4 (severe) I10 Essential (primary) hypertension Office Visit 11/23/2018 1:54p [facility] N18.9 Chronic kidney Assoc,obed Castillo M.D. disease, Hospitalists unspecified R06.02 Shortness of breath R60.1 Generalized edema Assessments Date Code Description Provider 01/29/2019 I12.9 Hypertensive chronic kidney disease with Elizabeth Kitchen MD stage 1 through stage 4 chronic kidney disease, or unspecified chronic kidney disease 01/29/2019 N18.5 Chronic kidney disease, stage 5 Elizabeth Kitchen MD 12/27/2018 I12.0 Hypertensive chronic kidney disease with Elizabeth Kitchen MD stage 5 chronic kidney disease or end stage renal disease 12/27/2018 N18.5 Chronic kidney disease, stage 5 Elizabeth Kitchen MD 12/27/2018 D63.1 Anemia in chronic kidney disease Elizabeth Kitchen MD 12/27/2018 I12.9 Hypertensive chronic kidney disease with Elizabeth Kitchen MD stage 1 through stage 4 chronic kidney disease, or unspecified chronic kidney disease 12/27/2018 R60.1 Generalized edema Elizabeth Kitchen MD 12/24/2018 N18.6 End stage renal disease Reza Prather MD, FACS 12/13/2018 N18.5 Chronic kidney disease, stage 5 Elizabeth Kitchen MD 12/13/2018 R60.1 Generalized edema Elizabeth Kitchen MD 12/13/2018 D63.1 Anemia in chronic kidney disease Elizabeth Kitchen MD 12/13/2018 K59.00 Constipation, unspecified Elizabeth Kitchen MD 12/06/2018 I12.9 Hypertensive chronic kidney disease with Elizabeth Kitchen MD stage 1 through stage 4 chronic kidney disease, or unspecified chronic kidney disease 12/06/2018 N18.4 Chronic kidney disease, stage 4 (severe) Elizabeth Kitchen MD 12/06/2018 D63.1 Anemia in chronic kidney disease Elizabeth Kitchen MD 12/06/2018 R53.1 Weakness Elizabeth Kitchen MD 11/30/2018 D63.1 Anemia in chronic kidney disease Elizabeth Kitchen MD 11/30/2018 I12.9 Hypertensive chronic kidney disease with Elizabeth Kitchen MD stage 1 through stage 4 chronic kidney disease, or unspecified chronic kidney disease 11/30/2018 N18.4 Chronic kidney disease, stage 4 (severe) Elizabeth Kitchen MD 11/30/2018 R06.02 Shortness of breath Elizabeth Kitchen MD 11/30/2018 R53.1 Weakness Elizabeth Kitchen MD 11/30/2018 D64.9 Anemia, unspecified Elizabeth Kitchen MD 11/30/2018 I10 Essential (primary) hypertension Elizabeth Kitchen MD 11/30/2018 I25.9 Chronic ischemic heart disease, Elizabeth Kitchen MD unspecified 11/28/2018 D63.1 Anemia in chronic kidney disease Elizabeth Kitchen MD 11/28/2018 R06.02 Shortness of breath Elizabeth Kitchen MD 11/28/2018 I12.9 Hypertensive chronic kidney disease with Elizabeth Kitchen MD stage 1 through stage 4 chronic kidney disease, or unspecified chronic kidney disease 11/28/2018 N18.4 Chronic kidney disease, stage 4 (severe) Elizabeth Kitchen MD 11/28/2018 I10 Essential (primary) hypertension Elizabeth Kitchen MD 11/23/2018 N18.9 Chronic kidney disease, unspecified Ti Castillo M.D. 11/23/2018 R06.02 Shortness of breath Ti Castillo M.D. 11/23/2018 R60.1 Generalized edema Ti Castillo M.D. Plan of Treatment Future Appointment(s):04/17/2019 9:00 am - Elizabeth Kitchen MD at [facility] [id number] /17/2019 - Elizabeth Kitchen MDI12.9 Hypertensive chronic kidney disease with stage 1 through stage 4 chronic kidney disease, or unspecified chronic kidney diseaseFollow up:3 [id number] Chronic kidney disease, stage 5 Functional Status Description No Information Available Mental Status Description No Information Available Referrals Refer to Reason for Referral Status Appt Date Sabrina [place] MD Closed [address] [place] [address] [phone]
--- OUTSIDE RECORDS SUMMARY | 2019-03-08 20:52 | XMS REPORT | Summary of Care ---
:1950 Author Organization [facility] Address [address] [address] Care Team Providers Name Role Phone Zoya Farmer MD Primary Care Provider Reason for Visit Reason Comments Follow Up Encounter Details Date Type Department Care Team Description 02/20/2019 Office Visit [place] [facility], CKD (chronic kidney disease) stage 4, GFR 15-29 ml/min ([facility]) (Primary Dx); Practice Zoya Singh MD S/P AVR; [address] Coronary artery disease involving [place] coronary artery of [place] heart without angina pectoris; [place], [place] [id number] [place] [address] long term current use of anticoagulant therapy; [phone] S/P AVR (aortic valve replacement) Allergies Active Allergy Reactions Severity Noted Date Comments Plasma Human Anaphylaxis High 01/15/2011 Pt with airway closing, periorbital edema, systemic red raised rash 15 minutes in to FFP transfusion documented as of this encounter (statuses as of 02/20/2019) Medications Medication Sig Dispensed Refills Start Date End Date Status fluticasone INHALE 2 SPRAYS 1 Bottle 1 05/21/2014 Active (FLONASE) 50 INTO THE MCG/ACT Nasal NOSTRIL(S) Suspension EVERY DAY ipratropium-albute Take 1 Puff by 1 Inhaler 11 03/22/2018 Active rol (COMBIVENT inhalation FOUR RESPIMAT) 20-100 TIMES DAILY. MCG/ACT Inhalation Aero Soln nitroglycerin Place 1 Tab 25 Tab 2 07/23/2018 Active (NITROSTAT) 0.4 MG under tongue Sublingual SL EVERY FIVE TabIndications: MINUTES Coronary artery NEEDED for disease involving chest pain. [place] coronary artery of [place] heart without angina pectoris amLodipine Take 1 Tab by 90 Tab 3 08/13/2018 Active (NORVASC) 10 MG mouth DAILY. Oral Tab Ferrous Sulfate Take 65 mg by 0 Active (IRON SUPPLEMENT mouth TWICE PO) DAILY. atorvastatin Take 1 Tab by 90 Tab 3 12/11/2018 Active (LIPITOR) 40 MG mouth DAILY. Oral TabIndications: Coronary artery disease involving [place] coronary artery of [place] heart with angina pectoris (HCC) torsemide Take 80 mg by 0 Active (DEMADEX) 20 MG mouth DAILY. Oral Tab epoetin homero-epbx Inject 10,000 0 12/11/2018 Active (RETACRIT) 02700 Units beneath UNIT/ML Injection the skin EVERY Solution MONDAY AND MONDAY. hydrALAZINE TAKE 1 TABLET 90 Tab 1 01/14/2019 Active (APRESOLINE) 50 MG BY MOUTH THREE Oral Tab TIMES DAILY hydrALAZINE Take 1 Tab by 90 Tab 6 01/14/2019 Active (APRESOLINE) 50 MG mouth THREE Oral Tab TIMES DAILY. metoprolol Take 0.5 Tabs 90 Tab 3 01/23/2019 Active succinate (TOPROL by mouth DAILY. XL) 25 MG Oral TABLET SR 24 HR warfarin Take 1.5-2 Tabs 180 Tab 3 02/20/2019 Active (COUMADIN) 4 MG by mouth DAILY. Oral As directed TabIndications: which is 6mg S/P AVR Mon/Th and 8mg remaining days of week isosorbide Take 1 Tab by 90 Tab 3 02/20/2019 Active MONOnitrate mouth DAILY. (IMDUR) 60 MG Oral TABLET SR 24 HRIndications: Coronary artery disease involving [place] coronary artery of [place] heart without angina pectoris lisinopril Take 1 Tab by 90 Tab 3 02/20/2019 Active (PRINIVIL, mouth DAILY. ZESTRIL) 20 MG Oral TabIndications: Coronary artery disease involving [place] coronary artery of [place] heart without angina pectoris lisinopril Take 1 Tab by 90 Tab 3 03/06/2018 02/20/19 Discontinued (PRINIVIL, mouth DAILY. 20 (Reorder) ZESTRIL) 20 MG Oral Tab isosorbide Take 1 Tab by 90 Tab 3 04/03/2018 02/20/19 Discontinued MONOnitrate mouth DAILY. 20 (Reorder) (IMDUR) 60 MG Oral TABLET SR 24 HRIndications: Coronary artery disease involving [place] coronary artery of [place] heart without angina pectoris warfarin Take 1.5-2 Tabs 180 Tab 3 05/03/2018 02/20/19 Discontinued (COUMADIN) 4 MG by mouth DAILY. 20 (Reorder) Oral As directed TabIndications: which is 6mg S/P AVR Sun/Thur and 8mg remaining days of week documented as of this encounter (statuses as of 02/20/2019) Active Problems Problem Noted Date CKD (chronic kidney disease) stage 4, GFR 15-29 ml/min 09/04/2018 Coronary artery disease involving [place] coronary artery of [place] heart 10/19 with angina pectoris Need for SBE (subacute bacterial endocarditis) prophylaxis 10/19/2017 CKD (chronic kidney disease) stage 3, GFR 30-59 ml/min 04/12/2017 Tinnitus of left ear 04/17/2014 PUD (peptic ulcer disease) 02/08/2012 Overview: Esophago-gastroduodenoscopy showed duodenal ulcer [facility] 10/2010 [facility] current use of anticoagulant therapy 01/02/2012 Overview: Managed by: [facility] Anticoagulant Warfarin Referring Provider: Cely Indication: AVR, [place] Target Range: 2.0-3.0 Duration: Indefinite Additional factors influencing anticoagulation: Also history of atrial fibrillation. CHADS2 score of 1 for hypertension [id number] score of 3 for hypertension, vascular disease, [...] as of this encounter (statuses as of 02/20/2019) Resolved Problems Problem Noted Date Resolved Date Nonspecific (abnormal) findings on radiological and other 10/26/20102011 examination of other intrathoracic organs Mediastinal hematoma 01/06/2010 10/20/2015 Mitral valve disorders(424.0) 11/02/2007 06/09/2010 Aortic valve disorders 10/23/2007 06/09/2010 documented as of this encounter (statuses as of 02/20/2019) Immunizations Name Administration Dates Next Due Influenza [...] Sign Reading Time Taken Comments Blood Pressure 120/60 02/20/2019 8:42 AM EST Pulse 58 02/20/2019 8:42 AM EST Temperature 35.9 02/20/2019 8:42 AM EST C (96.7 F) Respiratory Rate - - Oxygen Saturation 98% 02/20/2019 8:42 AM EST Inhaled Oxygen Concentration - - Weight 94.8 kg (209 lb) 02/20/2019 8:42 AM EST Height - - Body Mass Index 29.15 01/23/2019 1:13 PM EST documented in this encounter Patient Instructions Patient InstructionsZoya Farmer MD - 02/20/2019 8:40 AM ESTYou look good today on exam. Keep me posted on how your upcoming tests go. Please follow up in 6 months, sooner if needed. The influenza is in the community. You have had the vaccine. However take precautions and avoid ill people. 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 [place], now Dr Whipple at [facility] Chief Complaint: Dominic Brown is a 68-y.o. male who presents for follow up History of Present Illness/ROS: Here for follow up hypertension, CKD He sees nephrology, Dr Whipple, for chronic kidney disease stage 4. He saw her and has started Epogen injections for his anemia weekly. They have started to discuss peritoneal dialysis. He has been seen at [facility] transplant clinic also. He is having a stress test at [place] stress test next week. He was on injection for anemia, Hg is up to 10. He sees Dr Whipple again next week. Eats edible marijuana for neck pain and sleep and it helps. Cardiology: He sees cardiology. Last visit was 02/21/2018, [place]: continue current medications, Needs endocarditis prophylaxis, plan echocardiogram in 6 months. Cardiac summary per Lisa Lima: "known aortic valve replacement. 10/05/2017 cardiac catheterization, revealed two-vessel coronary disease and severe aortic regurgitation, ejection fraction was 35% to 40%. CABG 10/25/2007: left internal mammary artery to the left anterior descending, saphenous vein graftto the diagonal, saphenous vein graft to the posterior descending artery, and a #27 [employer] [place] mechanical aortic valve. Postoperatively he had paroxysmal atrial fibrillation and converted back to sinus rhythm. In 10/2010 he presented with anginal symptoms and cardiac catheterization revealed two-vessel nativecoronary artery disease involving the left anterior descending and right coronary, widely patent saphenous vein graft was noted. He had disease of a diagonal branch and a proximal right, but were felt to be nonsignificant at that point and was continued on medical therapy. The patient has had several episodes of gastrointestinal bleed, causing angina symptoms. Holter 2010 average heart rate 43 range of 37-77 Nuclear medicine stress test at [facility] 07/2013 small persistent area of photopenia in the anterolateral wall, there is a small area of reversible ischemia, no wall motion abnormality. Ejection fraction 46%. 07/2013 patient had paroxysmal atrial fibrillation Holter 03/2016 no significant arrhythmia noted. Some premature ventricular contractions' / premature atrial contractions' average heart rate 52 Nephrology: He was referred to nephrology, Dr Whipple, for chronic kidney disease stage 4. He saw her 12/06/18 and has started Epogen injections for his anemia weekly. They have started to discuss peritoneal dialysis. Anemia: He was on started weekly injections with Dr Whipple,but no longer as his hemoglobin imprved. Hemoglobin was up to 11 on laboratory tests 2 weeks ago at [facility]. He denies black or bloody stool, declined hemoccult testing last visit. Per last visit, He is trying to get his heart and kidney issues under control and has made a lot oflifestyle changes: He is taking lemon, tumeric, cinnamon, Honey, and josi in hot water once a day. He takes one iron daily, eats more spinache Coffee is down to 1 cup, He stopped all alcohol. Follows a low fat diet more strictly. 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 He had a positive Hepatitis C antibody test in 2018, but the viral load was 0, no infection found. His has been diagnosed with Hepatitis C and is in treatment. Acute concerns today:none, he feels good. Cardiac catheterization 03/[address] Pearl found [place] triple-vessel coronary artery disease. Patent saphenous vein graft to a diagonal branch. Patent saphenous vein graft to the right posterior descending artery. Patent left internal mammary artery to the leftanterior descending coronaryartery. At that time Dr. Pearl felt given his anatomy , along with the patient's creatinine of 1.9, it was not clear which if any of the lesions seen are truly causing the patient's symptoms. Dr. Pearl want tostop at that point, clear his kidneys of contrast, and review the actual nuclear images. If percutaneous coronary intervention is indicated, it would be of higher risk given the calcification in the bifurcation lesions Nuclear medicine stress test 05/16/16 1. Findings concerning for reversible ischemia involving the apical inferolateral segment. 2. Findings concerning for reversible ischemia involving the apical, mid, and basal anterolateral segments. 3. Dilated left ventricle with borderline systolic function with ejection fraction of 53%. 4. Focal hypokinesis of the apical inferior and septal segments. Nuclear medicine stress test was reviewed by Dr. Pearl who felt at this time we should continue withmedical therapy. If patient fails medical therapy then Dr. Pearl would further discussed with patient high risk possible intervention " The plan at this point is medical management. LDL goa is under 70. Plan is repeat lipid profile inJanuary. He needs dental endocarditis prophylaxis. Isosorbide is his new medication." LS xray 08/26/17: IMPRESSION Observations and Impression: Mineralization is preserved. No evidence of compression fracture. There is increased sclerosis of the facet joints lower lumbar spine. Prominent anterior disc osteophyte complexes, notably at L3-4 and L4-5. There is enlargement of the spinous processes which can be seen in Swain's disease. Evidence of moderate degenerative disc disease, notably at L4-5 and L5-S1. No evidence of spondylolysis. No evidence of scoliosis. Recommendation: No specific imaging recommendation. Lab Results Component Value Date INR (POCT) 1.9 02/20/2019 INR (POCT) 2.4 01/23/2019 INR (POCT) 2.7 12/27/2018 AntiCoag on 01/23/2019 Component Date Value Ref Range Status INR (POCT) 01/23/2019 2.4 2.0 - 3.0 Ratio Final INR STRIP LOT# 01/23/2019 [id number] Final INR QC PASS 01/23/2019 y Final Lab Results Component Value Date NA 141 09/05/2018 K 4.1 09/05/2018 CL 106 09/05/2018 CO2 26 09/05/2018 GLUCOSE 93 09/05/2018 BUN 45 (H) 09/05/2018 CREATININE 3.2 (H) 09/05/2018 CALCIUM 9.0 09/05/2018 TP 7.8 09/05/2018 ALBUMIN 4.3 09/05/2018 AST 31 09/05/2018 ALT 27 09/05/2018 ALK 55 09/05/2018 TBILI 0.9 09/05/2018 EGFR 19 09/05/2018 Lab Results Component Value Date CHOL 116 09/05/2018 TRIG 175 (H) 09/05/2018 HDL 25 (L) 09/05/2018 LDL 56 09/05/2018 LDLHDLRATIO 2.2 09/05/2018 CHOLHDLRATIO 4.6 09/05/2018 Lab Results Component Value Date WBC 6.09 09/05/2018 HGB 10.9 (L) 09/05/2018 HCT 33.5 (L) 09/05/2018 PLAT 159 (L) 09/05/2018 Ref Range & Units 1yr ago HCV RNA BY PCR QUANT <15 IU/ML <15 NOT DETECTED HCV RNA BY PCR QUANT <1.18 LOG IU/ML <1.18 NOT DETECTED Comment: This test was performed using Real-Time Polymerase Chain Review of Systems : General ROS: negative for - chills, hot flashes or weight loss Respiratory ROS: no cough, shortness of breath, or wheezing Cardiovascular ROS: no chest pain or dyspnea on exertion Gastrointestinal ROS: no abdominal pain, change in bowel habits, or black or bloody stools Denies problems with urination. Past Medical History: Diagnosis Date Abnormal nuclear stress test 05/2016 reversible ischemia of apical, mid, basal, inferolateral segment, Dilated LV, EF 53%, focal hypokinesis apical inferior and septal segments. Medical therapy recommended; Dr. Pearl Allergic rhinitis Aortic regurgitation s/p AVR Arthritis Ascending aortic aneurysm (HCC) s/p AVR and root replacement, 2007 ASHD (arteriosclerotic heart disease) CKD (chronic kidney disease) stage 3, GFR 30-59 ml/min ([facility]) Coronary artery bypass grafting x3 post-[place] in 2007; left internal mammary artery to the left anterior descending, saphenous vein graft to the diagonal, saphenous vein graft to the posterior descending artery, and a #27 [employer] [place] mechanical aortic valve. H/O thoracic aortic aneurysm repair 2007 Hyperlipidemia Hypertension Nephrolithiasis Paroxysmal atrial fibrillation (HCC) post op PUD (peptic ulcer disease) 02/08/2012 h/o GI bleeding: small intestine ulcer. S/P cardiac cath 10/2010 he presented with anginal symptoms and cardiac catheterization revealed two-vessel [place] coronary artery disease involving the left anterior descending and right coronary, widely patent saphenous vein graft was noted. He had disease of a diagonal branch and a proximal right, but were felt allison nonsignificant at that point and was continued on medical therapy. Sensory hearing loss, bilateral 04/17/2014 Systolic Dysfunction EF 45% post-procedure; 10/06/2007 cardiac catheterization: two-vessel coronary disease and severeaortic regurgitation, ejection fraction was 35% to 40 %. Thoracic aneurysm without mention of rupture 10/23/2007 Thoracic aneurysm without mention of rupture 10/23/2007 VHD (valvular heart disease) 10/25/2007 aortic valve replacement, mechanical; #27 St. [place]inio mechanical aortic valve. Past Surgical History: Procedure Laterality Date ANEURYSM REPAIR NEC on thoracic aorta CATHETERIZATION HEART LEFT 11/02/2010 Procedure:CATHETERIZATION HEART LEFT; Surgeon:TOM PEARL; Location:[facility] ; Laterality:N/A; CORONARY ART W/VG & LUCIO , RT FEMORAL ART & ANGIOSEAL CATHETERIZATION HEART LEFT N/A 03/29/2016 Procedure: CATHETERIZATION HEART LEFT; Surgeon: Tom Pearl MD; Location : [facility] COLONOSCOPY DIAGNOSTIC h/o GI bleed, 2009 or so EGD (ACEVEDO / NON ACEVEDO) h/o GI bleed HEART VALVE REPLACEMENT 9.08 IA CABG, ARTERY-VEIN, THREE 10/25/2007, the patient had a left internal mammary artery to the left anterior descending, saphenous vein graft to the diagonal, saphenous vein graft to the posterior descending artery, and a #27 [place] mechanical aortic valve. IA GI NUCLEAR PROCEDURE UNLISTED IA REMOVAL GALLBLADDER 10/2010 UNILAT ING HERNIA REPAIR 2005 Current Outpatient Medications: amLodipine (NORVASC) 10 MG Oral Tab, Take 1 Tab by mouth DAILY., Disp: 90 Tab, Rfl: 3 atorvastatin (LIPITOR) 40 MG Oral Tab, Take 1 Tab by mouth DAILY., Disp : 90 Tab, Rfl: 3 epoetin homero-epbx (RETACRIT) 53260 UNIT/ML Injection Solution, Inject 10 ,000 Units beneath the skin EVERY MONDAY AND MONDAY., Disp: , Rfl: Ferrous Sulfate (IRON SUPPLEMENT PO), Take 65 mg by mouth TWICE DAILY., Disp: , Rfl: fluticasone (FLONASE) 50 MCG/ACT Nasal Suspension, INHALE 2 SPRAYS INTO THE NOSTRIL(S) EVERYDAY, Disp: 1 Bottle, Rfl: 1 hydrALAZINE (APRESOLINE) 50 MG Oral Tab, TAKE 1 TABLET BY MOUTH THREE TIMES DAILY, Disp: 90 Tab, Rfl: 1 hydrALAZINE (APRESOLINE) 50 MG Oral Tab, Take 1 Tab by mouth THREE TIMES DAILY., Disp: 90 Tab, Rfl: 6 ipratropium-albuterol (COMBIVENT RESPIMAT) 20-100 MCG/ACT Inhalation Aero Soln, Take 1 Puff by inhalation FOUR TIMES DAILY., Disp: 1 Inhaler, Rfl: 11 isosorbide MONOnitrate (IMDUR) 60 MG Oral TABLET SR 24 HR, Take 1 Tab by mouth DAILY., Disp:90 Tab, Rfl: 3 lisinopril (PRINIVIL, ZESTRIL) 20 MG Oral Tab, Take 1 Tab by mouth DAILY., Disp: 90 Tab, Rfl: 3 metoprolol succinate (TOPROL XL) 25 MG Oral TABLET SR 24 HR, Take 0.5 Tabs by mouth DAILY., Disp: 90 Tab, Rfl: 3 nitroglycerin (NITROSTAT) 0.4 MG Sublingual SL Tab, Place 1 Tab under tongue EVERY FIVE MINUTES NEEDED for chest pain., Disp: 25 Tab, Rfl: 2 torsemide (DEMADEX) 20 MG Oral Tab, Take 80 mg by mouth DAILY., Disp: , Rfl: warfarin (COUMADIN) 4 MG Oral Tab, Take 1.5-2 Tabs by mouth DAILY. As directed which is 6mg Sun/Thur and 8mg remaining days of week, Disp: 180 Tab, Rfl: 3 Allergies Allergen Reactions Plasma Human Anaphylaxis Pt with airway closing, periorbital edema, systemic red raised rash 15 minutes in to FFP transfusion Social History Socioeconomic History Marital status: Spouse name: Not on file Number of children: Not on file Years of education: Not on file Highest education level: Not on file Occupational History Not on file Social Needs Financial resource strain: Not on file Food insecurity Worry: Not on file Inability: Not on file Transportation needs Medical: Not on file Non-medical: Not on file Tobacco Use Smoking status: Former Smoker Years: 6.00 Last attempt to quit: 02/13/1994 Years since quittin.0 Smokeless tobacco: Never Used Tobacco comment: quit many years ago Substance and Sexual Activity Alcohol use: Yes Alcohol/week: 1.0 standard drinks Types: 1 Glasses of wine per week Comment: stopped drinking Drug use: Yes Types: Marijuana Comment: daily Sexual activity: Not Currently Lifestyle Physical activity Days per week: Not on file Minutes per session: Not on file Stress: Not on file Relationships Social connections Talks on phone: Not on file Gets together: Not on file Attends congregation service: Not on file Active member of club or organization: Not on file Attends meetings of clubs or organizations: Not on file Relationship status: Not on file Intimate partner violence Fear of current or ex partner: Not on file Emotionally abused: Not on file Physically abused: Not on file Forced sexual activity: Not on file Other Topics Concern Back Care Not Asked Bike Helmet Not Asked Blood Transfusions Not Asked Caffeine Concern Not Asked Exercise Yes Comment: limited Hobby Hazards Not Asked International Travel Not Asked Service Not Asked Occupational Exposure Not Asked Seat Belt Not Asked Self-Exams Not Asked Sleep Concern No Special Diet No Stress Concern No Weight Concern No Social History Narrative Lives with , Mónica. 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 Family History Problem Relation Age of Onset Heart Mother Diabetes Mother Alcohol/Drug Father Cancer Maternal Grandmother bone No Known Problems Brother Immunization History Administered Date(s) Administered Influenza (IM) Preservative Free 12/04/2009, 11/23/2011, 11/17/2012, 10/2013 Influenza Vaccine High Dose 11/21/2015, 11/14/2016, 11/21/2018 PNEUMOCOCCAL POLYSACCHARIDE VACCINE 12/04/2009, 10/19/2017 Pneumococcal Conjugate(13 Valent) 10/20/2015 PHYSICAL EXAMINATION: BP 120/60 | Pulse 58 | Temp 96.7 F (35.9 C) | Wt 209 lb (94.8 kg) | SpO2 98% | BMI 29.15 kg/m Physical Examination: General appearance - alert, color is improved, normal appearing, and in no distress Mental status - alert, oriented to person, place, and time, normal mood, behavior, speech, dress, motor activity, and thought processes Eyes - pupils equal, sclera anicteric Nose clear Neck - supple, no cervical or supraclavicular adenopathy, carotids upstroke normal bilaterally, no bruits, thyroid exam: thyroid is normal in size without nodules or tenderness, no neck masses palpated. Chest/Lungs - clear to auscultation, no wheezes, rales or rhonchi, symmetric air entry, good aeration Heart - normal rate, regular rhythm, normal S1, S2, 2/6 systolic murmurs rusb, has AV click, no rubs Abdomen - soft, nontender, nondistended, no masses or hepatosplenomegaly, bowel sounds normal Neurological - alert, oriented, normal speech, no gross focal findings noted Extremities - dorsalis pedis pulses normal, trace bilateral pedal edema, no clubbing or cyanosis ASSESSMENT/PLAN: ICD-9-CM ICD-10-CM 1. CKD (chronic kidney disease) stage 4, GFR 15-29 ml/min ([facility]) 585.4 N18.4 2. S/P AVR V43.3 Z95.2 warfarin (COUMADIN) 4 MG Oral Tab 3. Coronary artery disease involving [place] coronary artery of [place] heart without angina pectoris 414.01 I25.10 isosorbide MONOnitrate (IMDUR) 60 MG Oral TABLET SR 24 HR lisinopril (PRINIVIL, ZESTRIL) 20 MG Oral Tab 4. [facility] current use of anticoagulant therapy V58.61 Z79.01 5. S/P AVR (aortic valve replacement) V43.3 Z95.2 Coronary artery disease involving [place] coronary artery of [place] heart without angina pectoris Stable at this time, denies angina today but has in the past. Cardiology is manageing this medically. He is having a nuclear stress test at [facility] next week. S/P AVR (aortic valve replacement) On coumadin CKD (chronic kidney disease) stage 4 based on last laboratory tests. Now sees Dr Whipple in [place] Will likely be starting peritoneal dialysis in the future. He has been seen at [facility] transplant team Anemia Improved with epogen, no longer getting this as Hemoglobin is over 10 Patient Instructions You look good today on exam. Keep me posted on how your upcoming tests go. Please follow up in 6 months, sooner if needed. The influenza is in the community. You have had the vaccine. However take precautions and avoid ill people. Author: Zoya Farmer MD 02/20/2019 11:26 documented in this encounter Plan of Treatment Date Type Specialty Care Team Description 03/27/2019 Office Visit Cardiology Lisa Lima CRNP [address] [id number] [phone] 03/27/2019 AntiCoag Anticoagulation Health Maintenance Due Date Last Done Comments [...] Author Type Problems Progress Blood Pressure Blood 120/60 No Marleny, < 140/90 Pressure (02/20/2019 Zoya Singh, 8:42 AM EST) Note: This is an individualized treatment (blood pressure) goal for Dominic Pazchikayessi: Displayed above (on the left) is your goal for blood pressure control. Your most recent blood pressure is also shown above, on the right. You should try to achieve blood pressures that are lower than your goal listed above (on the left). Take all prescribed medications as Self-management No Zoya Farmer MD directed Note: This is an individualized [...] of this encounter Implants Implanted Type Area International Nurse Device Shelf Model / Identifier Expiration Date Serial / Lot Aortic Stjude Conduit Rotat 25 - [id number] [employer], [id number] / Implanted: Qty: 1 on 10/25/2007 at [facility]. / [id number] documented as of this encounter Results Not on filedocumented in this encounter Visit Diagnoses Diagnosis S/P AVR Heart valve replaced by other means Coronary artery disease involving [place] coronary artery of [place] heart without angina pectoris [facility] current use of anticoagulant therapy CKD (chronic kidney disease) stage 4, GFR 15-29 ml/min (HCC) Chronic kidney disease, Stage IV (severe) S/P AVR (aortic valve replacement) Heart valve replaced by other means documented in this encounter Insurance Payer Benefit Plan / Subscriber ID Effective Dates Phone Address Type Group [facility] MEDICARE EXCELL xxxxxxxxxxxx Effective for [employer] MEDICARE BLUE all dates PPO [phone]) Guarantor Name Account Type Relation to Date of Phone Billing Patient Address Dominic Brown Personal/Family 1950 [address] ([address] [phone] [place], [place] (Work) [id number] documented as of this encounter
--- OUTSIDE RECORDS SUMMARY | 2019-03-08 20:52 | XMS REPORT | Summary of Care ---
:1950 Author Organization [facility] Address [address] [place] [address] Care Team Providers Name Role Phone Zoya Farmer MD Primary Care Provider Reason for Referral Diagnostic Radiology (Routine) Status Reason Specialty Diagnoses / Referred By Referred To Procedures Contact Contact Authorized Diagnostic Diagnoses Preoperative examination, unspecified Transplant Radiology Procedures NM Myocard Perfusion SPECT Multiple Study Stress Provider-Based [id number] [place] [address] Diagnostic Radiology (Routine) Status Reason Specialty Diagnoses / Referred By Referred To Procedures Contact Contact Authorized Diagnostic Diagnoses Preoperative examination, unspecified Transplant Radiology Procedures Stress test, pharmacological with nuc med myocardial perfusion SPECT (stress/ rest) Provider-Based [address] [place] [address] Reason for Visit Reason Comments Kidney Evaluation Transplants (Routine) Status Reason Specialty Diagnoses / Referred By Referred To Contact Procedures Contact Authorized Transplant Diagnoses esrd Elizabeth Whipple MD Transplant Procedures kidney transplant evaluation [address] D[address] Provider-Based [address] [id number] [place], [place] Phone: [phone] Encounter Details Date Type Department Care Team Description 01/31/2019 Office Visit [facility] Gloria Pruett [facility] [address] [facility] unspecified (Primary [address] Room 2418 Dx) [address] [place], [address] [place] [phone] Allergies No Known Allergiesdocumented as of this encounter (statuses as of 02/12/2019) Medications Medication Sig Dispensed Refills Start Date End Date Status amLODIPine Besylate 10 Take 10 mg by 0 Active MG Oral Tablet mouth daily (NORVASC) Fluticasone Propionate 1 spray by Nasal 0 Active 50 MCG/ACT Nasal route daily Suspension (FLONASE) hydrALAZINE HCl 50 MG Take 50 mg by 0 Active Oral Tablet mouth Three times (APRESOLINE) daily Ipratropium-Albuterol Inhale 1 puff 0 Active 20-100 MCG/ACT into the lungs Inhalation Aerosol every 6 (six) Solution (COMBIVENT hours as needed RESPIMAT) for Wheezing Ferrous Sulfate 325 (65 Take 325 mg by 0 Active Fe) MG Oral Tablet mouth Twice Daily Isosorbide Mononitrate Take 60 mg by 0 Active ER 30 MG Oral Tablet mouth daily Extended Release 24 Hour (IMDUR) Lisinopril 20 MG Oral Take 20 mg by 0 Active Tablet mouth daily (PRINIVIL,ZESTRIL) Metoprolol Succinate ER Take 25 mg by 0 Active 25 MG Oral Tablet mouth daily Extended Release 24 Hour (TOPROL-XL) Torsemide 10 MG Oral Take 80 mg by 0 Active Tablet (DEMADEX) mouth daily Nitroglycerin 0.[address] 0.4 mg 0 Active Sublingual Tablet under the tongue Sublingual (NITROSTAT) every 5 (five) minutes as needed for Chest pain medical Take by mouth 0 Active marijuanaIndications: every hour as non- medical needed Indications: non- medical Warfarin Sodium 1 MG Take by mouth 0 Active Oral Tablet daily (COUMADIN)Indications: Indications: 4 mg 4 mg daily except 2 daily except 2 days days documented as of this encounter (statuses as of 02/12/2019) Active Problems Problem Noted Date CKD (chronic kidney disease), stage IV CAD (coronary artery disease) Hypertension documented as of this encounter (statuses as of 02/12/2019) Social History Tobacco Use Types Packs/Day Years Used Date Never Assessed Sex Assigned at Date Recorded Not on file Job Start Date Occupation Industry Not on file Not on file Not on file Travel History Travel Start Travel End No recent travel history available. documented as of this encounter Last Filed Vital Signs Vital Sign Reading Time Taken Comments Blood Pressure 140/72 01/31/2019 12:12 PM EST Pulse 52 01/31/2019 12:12 PM EST Temperature 36.5 01/31/2019 12:12 PM EST C (97.7 F) Respiratory Rate - - Oxygen Saturation 98% 01/31/2019 12:12 PM EST Inhaled Oxygen Concentration - - Weight 94.4 kg (208 lb 1.8 oz) 01/31/2019 12:12 PM EST Height 180.3 cm (5' 11") 01/31/2019 12:12 PM EST Body Mass Index 29.03 01/31/2019 12:12 PM EST documented in this encounter Progress Notes Gloria Pruett PA - 01/31/2019 11:30 AM EST Renal Transplant Recipient Evaluation CC: Dominic Brown presents today for evaluation for kidney transplant. He was referred by Dr. Whipple. He is here with his . HISTORY OF PRESENT ILLNESS : Dominic Brown is a 68 y.o. male with PMH significant for CKD stage V secondary to HTN, CAD s/p CABG, chronic anemia, and HTN that presents for evaluation for kidney transplant. The patient has had HTN for the last 40 years. His notes state his kidney disease is from longstanding hypertension. He states he has undergone several cardiac catheterizations using dye and he believes this allison the reason why he has kidney disease. He is not on dialysis. He does not have a fistula or PD catheter. He makes normal amounts of urine. Functionally, he tries to exercise by walking. He states he used to golf regularly but has been limited recently by anemia. He can walk two blocks and climb two flights of stairs but states this would fatigue him. Stage of kidney disease: CKD stage V Est. 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 He has had several subsequent catheterizations (10/24, 04/01) for angina. Cath in demonstrated ramona triple vessel disease with patent bypass grafts. Stress test 05/30 demonstrated reversible ischemia of the apical, inferolateral, mid, andbasal anterolateral segments. Follows at [facility]. 3) paroxysmal a fib: on coumadin 4) hx bleeding duodenal ulcer s/p cauterization 5) HTN 6) HLD 7) asthma PSH: 1) CABG and AVR, see above 2) laparoscopic cholecystectomy 2010 3) bilateral inguinal hernia repairs with mesh 2005 REVIEW OF SYSTEMS: Constitutional: positive for fatigue. Negative for fever, chills, diaphoresis, activity change, appetite change, and unexpected weight change. HENT: Negative for facial swelling, neck pain and neck stiffness. Eyes: Negative for discharge, itching and visual disturbance. Respiratory: Negative for cough, choking, chest tightness, shortness of breath and wheezing. Cardiovascular: Negative for chest pain, palpitations and leg swelling. Gastrointestinal: Negative for nausea, vomiting, abdominal pain, diarrhea, constipation, blood in stool, abdominal distention, anal bleeding and rectal pain. Genitourinary: Negative for dysuria, flank pain and difficulty urinating. Musculoskeletal: Negative for joint swelling and arthralgias. Skin: Negative for color change, pallor, rash and wound. Neurological: Negative for dizziness and syncope. Hematological: Negative for adenopathy. Does not bruise/bleed easily. Psychiatric/Behavioral: Negative for behavioral problems, confusion and agitation. All other systems reviewed and are negative. Allergies: Patient has no known allergies. Medications : Current Outpatient Medications: amLODIPine Besylate 10 MG Oral Tablet (NORVASC), Take 10 mg by mouth daily, Disp: , Rfl: Ferrous Sulfate 325 (65 Fe) MG Oral Tablet, Take 325 mg by mouth Twice Daily , Disp: , Rfl: Fluticasone Propionate 50 MCG/ACT Nasal Suspension (FLONASE), 1 spray by Nasal route daily, Disp: , Rfl: hydrALAZINE HCl 50 MG Oral Tablet (APRESOLINE), Take 50 mg by mouth Three times daily, Disp:, Rfl: Ipratropium-Albuterol 20-100 MCG/ACT Inhalation Aerosol Solution ( COMBIVENT RESPIMAT), Inhale 1 puff into the lungs every 6 (six) hours as needed for Wheezing, Disp: , Rfl: Isosorbide Mononitrate ER 30 MG Oral Tablet Extended Release 24 Hour ( IMDUR), Take 60 mg by mouth daily, Disp: , Rfl: Lisinopril 20 MG Oral Tablet (PRINIVIL,ZESTRIL), Take 20 mg by mouth daily, Disp: , Rfl: medical marijuana, Take by mouth every hour as needed Indications: non- medical, Disp: , Rfl: Metoprolol Succinate ER 25 MG Oral Tablet Extended Release 24 Hour ( TOPROL-XL), Take 25 mg by mouth daily, Disp: , Rfl: Nitroglycerin 0.4 MG Sublingual Tablet Sublingual (NITROSTAT), Place 0.4 mg under the tongueevery 5 (five) minutes as needed for Chest pain, Disp: , Rfl: Torsemide 10 MG Oral Tablet (DEMADEX), Take 80 mg by mouth daily, Disp: , Rfl: Warfarin Sodium 1 MG Oral Tablet (COUMADIN), Take by mouth daily Indications: 4 mg daily except 2 days, Disp: , Rfl: Family history The patient's mother at age 93 from an unknown cancer. His father at age 69 from complications related to alcoholism. Social history The patient is . He lives with his . He does not have children. 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 He smoked cigars for 25 years, quitting in 1994. He does not drink alcohol or use drugs. He exercises by walking when he can/ PHYSICAL EXAM: Blood pressure 140/72, pulse (!) 52, temperature 36.5 C (97.7 F), temperature source Oral, height 1.803 m (5' 11"), weight 94.4 kg (208 lb 1.8 oz) , SpO2 98 %. Wt Readings from Last 3 Encounters: 01/31/19 94.4 kg (208 lb 1.8 oz) Body mass index is 29.03 kg/m. Constitutional: elderly male that appears younger than his age. Conversant. Head: Normocephalic and atraumatic. Pupils are equal. Dentition: no issues noted Neck: Normal range of motion. Neck supple. No JVD present. No thyromegaly present. Cardiovascular: s1s2 RRR no murmur Pulmonary/Chest: Effort normal and breath sounds normal. No respiratory distress. no wheezes. no rales. Abdominal: Soft. NT, ND. Musculoskeletal: Normal range of motion, no edema and no tenderness, no cervical adenopathy. Vascular: femoral pulses 2+ and equal bilaterally. Neurological: alert and oriented to person, place, and time. Gait normal. Skin: Skin is warm and dry. No rash noted. Psychiatric: normal mood and affect. behavior is normal. Judgment and thought content normal. PRIOR LABORATORY DATA AVAILABLE : I reviewed the following laboratory data from the old and existing records Lab Results Component Value Date NA 135 (L) 01/31/2019 K 4.2 01/31/2019 CL 96 (L) 01/31/2019 BICARBONATE 25 01/31/2019 BUN 94 (H) 01/31/2019 CREATININE 4.61 (H) 01/31/2019 ALBUMIN 4.7 01/31/2019 GLUCOSE 104 01/31/2019 CALCIUM 9.4 01/31/2019 MG 2.7 (H) 01/31/2019 PHOS 4.6 (H) 01/31/2019 PTH 199 (H) 01/31/2019 WBC 5.3 01/31/2019 HGB 11.2 (L) 01/31/2019 MCV 88.2 01/31/2019 PLT 155 01/31/2019 CHO 102 01/31/2019 TRIG 118 01/31/2019 HDL 33 (L) 01/31/2019 LDL 45 01/31/2019 Cardiac assessment : Following tests from old and current records made available to me were reviewed. Stress test 05/16/16 2 08/2018 Immunology : Panel reactive antibody: need HLA typing: please refer to Epic records Serology testing ABO: O Diagnostic Imaging CXR - PA & Lateral Abdominal U/S 11/23/18 Cancer screening : PSA ( men over 50 ): need Colonoscopy: need ASSESSMENT AND PLAN: Dominic Brown is here for evaluation for renal transplant. 1.) CKD stage V secondary to HTN: Mr. Brown is a high-risk patient due to his cardiac history. He requires a more recent stress test. His stress test in 2016 demonstrated reversible ischemia and global hypokinesis and catheterization prior to that demonstrated triple vessel disease. This will need to be reviewed by our Edger Machine Helper but he likely cannot undergo surgery without intervention. The patient is not yet on dialysis and a cardiac catheterization will be detrimental to his kidney disease. He additionally requires evidence of a colonoscopy and PSA. Potential for living donor: his brother We discussed the following things that pertain to kidney transplant: - today's appointment is a multidisciplinary appointment. The patient will be seen by multiple team members. Their medical record will be reviewed in depth and outside records will be obtained and reviewed. Their case will be brought to a multidisciplinary meeting and it will be discussed by a selection committee. - transplant is a treatment for kidney failure, not a cure. The advantages to transplant are that the patient's blood will be filtered 05/09, as opposed to occasionally on dialysis. The patient's quality of life will improve off dialysis. In addition, a patient's lifespan is longer on dialysis. - the surgical risks of kidney transplant include but are not limited to bleeding, infection, urine leak, clot in the graft, clot in the leg. Anesthesia has its own risks including pulmonary, cardiac, neurologic event, or even . - the patient's postop LOS will likely be between 5-7 days, the average for our program. This may belonger if the patient incurs complications. - the patient will receive high dose immunosuppressive medications during hospitalization that have side effects. The patient will be discharged on oral immunosuppressive medications that have side effects. The patient was advised they may be switched to different medications if the side effects are unbearable for them. - the patient will need to follow up in our clinic twice weekly in the first month post-transplant, once weekly in the second month post-transplant, and every other week in the third month post-transplant. [facility] 11 :24 AM ESTdocumented in this encounter Plan of Treatment Date Type Specialty Care Team Description 02/04/2020 Office Visit Transplant Gavin Sarabia MD [address] [address] [phone] Name Type Priority Associated Order Schedule Diagnoses Stress test, Cardiac Services Routine Preoperative 1 Occurrences pharmacological with examination, starting nuc med myocardial unspecified 01/31/2019 until perfusion SPECT 02/01/2020 (stress/rest) NM Myocard Perfusion Imaging Routine Preoperative Expected: SPECT Multiple Study examination, 01/31/2019, Stress unspecified Expires: 05/01/2020 Health Maintenance Due Date Last Done Comments MMR Vaccines ( - 1951 Standard series) Varicella Vaccines (1 of 2 - 1951 2-dose childhood series) DTaP,Tdap,and Td Vaccines (1 1956 - Tdap) Zoster Vaccines (1 of 2) 05/18/1999 Pneumococcal Vaccine: 65+ 2014 Years (1 of 2 - PCV13) Influenza Vaccine 11/13/2018 Colon Cancer Screening 10 yrs 04/03/2022 04/03/2012 Hepatitis C Screening (B. Completed 01/31/2019, [id number]) 01/31/2019 HIB Vaccines Aged Out No longer eligible based on patient's age to complete this topic Hepatitis A Vaccines Aged Out No longer eligible based on patient's age to complete this topic Hepatitis B Vaccines Aged Out No longer eligible based on patient's age to complete this topic IPV Vaccines Aged Out No longer eligible based on patient's age to complete this topic Pneumococcal Vaccine: Aged Out No longer eligible based Pediatrics (0 to 5 Years) and on patient's age to At-Risk Patients (6 to 64 complete this topic Years) documented as of this encounter Procedures Procedure Name Priority Date/Time Associated Diagnosis Comments HLA MOLECULAR MABDR Routine 01/31/2019 4:00 Preoperative Results for this PM EST examination, procedure are in unspecified the results section. CARLEE KRAUSE VIRUS Routine 01/31/2019 4:00 Preoperative Results for this PANEL PM EST examination, procedure are in unspecified the results section. QUANTIFERON-TB GOLD Routine 01/31/2019 4:00 Preoperative Results for this PLUS PM EST examination, procedure are in unspecified the results section. SYPHILIS IGG/IGM Routine 01/31/2019 4:00 Preoperative Results for this SCREEN W/REFLEX TO RPR PM EST examination, procedure are in unspecified the results section. PARTIAL THROMBOPLASTIN Routine 01/31/2019 4:00 Preoperative Results for this TIME (PTT) PM EST examination, procedure are in unspecified the results section. HIV AG AB COMBO SCREEN Routine 01/31/2019 4:00 Preoperative Results for this PM EST examination, procedure are in unspecified the results section. HLA ANTIBODY ID SCREEN Routine 01/31/2019 4:00 Preoperative Results for this PM EST examination, procedure are in unspecified the results section. G6PD, QUALITATIVE Routine 01/31/2019 4:00 Preoperative Results for this PM EST examination, procedure are in unspecified the results section. CMV IGG Routine 01/31/2019 4:00 Preoperative Results for this PM EST examination, procedure are in unspecified the results section. HEPATITIS C ANTIBODY Routine 01/31/2019 4:00 Preoperative Results for this PM EST examination, procedure are in unspecified the results section. RUBEOLA ANTIBODY IGG Routine 01/31/2019 4:00 Preoperative Results for this PM EST examination, procedure are in unspecified the results section. CARDIOLIPIN ANTIBODY, Routine 01/31/2019 4:00 Preoperative Results for this IGG PM EST examination, procedure are in unspecified the results section. HEPATITIS C RNA, Routine 01/31/2019 4:00 Results for this QUANTITATIVE, PCR PM EST procedure are in the results section. RUBELLA ANTIBODY, IGG Routine 01/31/2019 4:00 Preoperative Results for this PM EST examination, procedure are in unspecified the results section. HEPATITIS B SURFACE Routine 01/31/2019 4:00 Preoperative Results for this ANTIBODY PM EST examination, procedure are in unspecified the results section. HEPATITIS B SURFACE Routine 01/31/2019 4:00 Preoperative Results for this ANTIGEN PM EST examination, procedure are in unspecified the results section. PROTIME INR Routine 01/31/2019 4:00 Preoperative Results for this PM EST examination, procedure are in unspecified the results section. CBC AND DIFFERENTIAL Routine 01/31/2019 4:00 Preoperative Results for this PM EST examination, procedure are in unspecified the results section. VARICELLA ZOSTER Routine 01/31/2019 4:00 Preoperative Results for this ANTIBODY, IGG PM EST examination, procedure are in unspecified the results section. MUMPS ANTIBODY, IGG Routine 01/31/2019 4:00 Preoperative Results for this PM EST examination, procedure are in unspecified the results section. URIC ACID Routine 01/31/2019 4:00 Preoperative Results for this PM EST examination, procedure are in unspecified the results section. PSA Routine 01/31/2019 4:00 Preoperative Results for this PM EST examination, procedure are in unspecified the results section. PHOSPHORUS LEVEL Routine 01/31/2019 4:00 Preoperative Results for this PM EST examination, procedure are in unspecified the results section. PTH, INTACT Routine 01/31/2019 4:00 Preoperative Results for this PM EST examination, procedure are in unspecified the results section. MAGNESIUM LEVEL Routine 01/31/2019 4:00 Preoperative Results for this PM EST examination, procedure are in unspecified the results section. HEPATIC FUNCTION PANEL Routine 01/31/2019 4:00 Preoperative Results for this A PM EST examination, procedure are in unspecified the results section. LIPID PANEL Routine 01/31/2019 4:00 Preoperative Results for this PM EST examination, procedure are in unspecified the results section. BASIC METABOLIC PANEL Routine 01/31/2019 4:00 Preoperative Results for this PM EST examination, procedure are in unspecified the results section. RENAL TYPE AND SCREEN Routine 01/31/2019 10:55 Results for this AM EST procedure are in the results section. documented in this encounter Results XR Chest Frontal and Lateral (01/31/2019 4:29 PM EST) Specimen Impressions Performed At IMPRESSION: [facility] No acute cardiopulmonary process. Narrative Performed At CHEST PA AND LATERAL VIEW. [facility] INDICATION: Kidney transplant evaluation. TECHNIQUE: PA and lateral chest radiograph was obtained. COMPARISON: None available FINDINGS: Sternotomy wires are intact. There is prosthetic aortic valve. Multiple surgical clips about the cardiomediastinal silhouette. Heart size is top normal. There are no focal airspace consolidations. No pleural effusions or pneumothorax. Multilevel degenerative changes of the thoracic spine are present. Procedure Note Interface, Received Via [employer] System - 02/01/2019 9:45 AM EST CHEST PA AND LATERAL VIEW. INDICATION: Kidney transplant evaluation. TECHNIQUE: PA and lateral chest radiograph was obtained. COMPARISON: None available FINDINGS: Sternotomy wires are intact. There is prosthetic aortic valve. Multiple surgical clips about the cardiomediastinal silhouette. Heart size is top normal. There are no focal airspace consolidations. No pleural effusions or pneumothorax. Multilevel degenerative changes of the thoracic spine are present. IMPRESSION: No acute cardiopulmonary process. Performing Organization Address City/State/[facility] Phone Number [facility] [address] [place] [address] Hepatitis C RNA, quantitative, PCR (01/31/2019 4:00 PM EST) Hepatitis C Quant HCV Not Detected IU/[facility] HCV Log 10 Testing not performed [facility] Test Information Comment Blanca Weiner Comment: (NOTE) The quantitative range of this assay is 15 IU/mL to 100 million IU/mL. Performed At: NIYA Weiner [address] [place], [place] [id number] Chase Wellington MD Ph:[phone] Specimen Serum Performing Organization Address [facility] Phone Number [facility] [address] [place] [address] PATHOLOGY [facility] [address] [phone] Protime-INR (01/31/2019 4:00 PM EST) PT Patient 22.7 (H) 12.5 - 14.9 [facility] Pathology Int'l Normalized 1.92Comment: Routine [facility] intensity oral Univ Clin anticoagulation INR is Pathology typically 2.0-3.0. Target INR must be clinically individualized. Specimen Plasma Performing Organization Address [facility] Phone Number [facility] [address] [place] [address] [facility] [address] [place] [address] Pathology Varicella zoster antibody, IgG (01/31/2019 4:00 PM EST) Varicella IgG Antibody Positive {ISR} [facility] Pathology Specimen Serum Performing Organization Address [facility] Phone Number [facility] [address] [place] [address] [facility] [address] [place] [address] Pathology Uric acid (01/31/2019 4:00 PM EST) Uric Acid 9.3 (H) 3.4 - 7.0 mg/dl [facility] Pathology Specimen Plasma Performing Organization Address [facility] Phone Number [facility]OLOGY [address] [place] [address] [phone] [facility] [address] [place] [address] Pathology Syphilis IgG/IgM Screen w/Reflex to RPR (01/31/2019 4:00 PM EST) Syphilis IgG/IgM Non Reactive Non Reactive [facility] Pathology Specimen Serum Performing Organization Address [facility] Phone Number [facility] [address] [place] [address] [facility] [address] [place] [address] Pathology Rubeola antibody IgG (01/31/2019 4:00 PM EST) Rubeola IgG Antibody Positive {ISR} [facility] Pathology Specimen Serum Performing Organization Address [facility] Phone Number [facility] [address] [place] [address] [phone] [facility] [address] [place] [address] Pathology Rubella antibody, IgG (01/31/2019 4:00 PM EST) Rubella IgG Ab Positive {ISR} [facility] Pathology Specimen Serum Performing Organization Address [facility] Phone Number [facility] [address] [place] [address] [phone] [facility] [address] [place] [address] Pathology QUANTIFERON-TB GOLD PLUS (01/31/2019 4:00 PM EST) Quantiferon-TB Negative Negative [facility] Gold Plus Comment: [facility] No interferon-gamma response to M.tuberculosis Pathology antigens was detected. Infection with M. tuberculosis is unlikely. A single negative result does not exclude infection with M. TB. In patients at high risk for M. tuberculosis infection, a 2nd test should be considered in accordance with the 2017 ATS/IDSA/CDC Clinical Practice Guidelines for Diagnosis of Tuberculosis in Adults and Children [Claudine YOUNG et. al. Clin Infec.Dis 2017 64(2):111-115] TB1 Ag minus Nil 0.00 [IU]/mL [facility] Result Univ Clin Pathology TB2 Ag minus Nil 0.00 [IU]/mL [facility] Result Univ Clin Pathology Mitogen Nil Result >10.00 [IU]/mL [facility] Pathology Nil Result 0.02 [IU]/mL [facility] Pathology Specimen Whole Blood Performing Organization Address [facility] Phone Number [facility] PATHOLOGY [address] [place] [address] [facility] [address] [place] [address] Pathology PTH, intact (01/31/2019 4:00 PM EST) PTH Intact 199 (H) 15 - 65 pg/mL [facility] Pathology Specimen Plasma Performing Organization Address [facility] Phone Number [facility] [address] [place] [address] [phone] [facility] [address] [place] [address] Pathology PSA Diagnostic (01/31/2019 4:00 PM EST) PSA Total 0.9 <4.0 ng/mL [facility] Comment: [facility] Serum levels of PSA should not be interpreted as absolute evidence of the presence or absence of Cancer. Results obtained with different methods cannot be used interchangeably. This method is manufactured by [employer] and is an Pathology electrochemiluminesence immunoassay. Specimen Plasma Performing Organization Address [facility] Phone Number [facility] [address] [place] [address] [facility] [address] [place] [phone] Pathology Phosphorus Level (01/31/2019 4:00 PM EST) Pathologist [facility] Phosphorus 4.6 (H) 2.5 - 4.5 mg/dL [facility] Pathology Specimen Plasma Performing Organization Address [facility] Phone Number [facility] [address] [place] [address] [phone] [facility] [address] [place] [address] Pathology Partial Thromboplastin Time (PTT) (01/31/2019 4:00 PM EST) Pathologist [facility] PTT Patient (PAT) 35.5 (H) 24.0 - 34.0 s [facility] Pathology Specimen Plasma Performing Organization Address [facility] Phone Number [facility] CLINICAL PATHOLOGY [address] [place] [address] [facility] [address] [place] [address] Pathology Mumps antibody, IgG (01/31/2019 4:00 PM EST) Pathologist [facility] Mumps IgG Ab Positive {ISR} [facility] Pathology Specimen Serum Performing Organization Address [facility] Phone Number [facility] [address] [place] [address] [facility] [address] [place] [address] [place] [address] Pathology Magnesium Level (01/31/2019 4:00 PM EST) Magnesium 2.7 (H) 1.6 - 2.4 mg/dL [facility] Pathology Specimen Plasma Performing Organization Address [facility] Phone Number [facility] CLINICAL PATHOLOGY [address] [place] [address] [phone] [facility] [address] [place] [address] Pathology Lipid panel (01/31/2019 4:00 PM EST) Cholesterol 102 <200 mg/dL [facility] Pathology Triglyceride 118 <150 mg/dL [facility] Pathology HDL Cholesterol 33 (L) >40 mg/dL [facility] Pathology LDL Cholesterol 45 <100 mg/dL [facility] Pathology VLDL Cholesterol 24 16 - 42 mg/dl [facility] Pathology Non HDL Cholesterol 69 <130 mg/dL [facility] Pathology Specimen Plasma Performing Organization Address [facility] Phone Number [facility] CLINICAL PATHOLOGY [address] [place] [address] [facility] [address] [place] [address] Pathology HLA molecular mabdr (01/31/2019 4:00 PM EST) HLA MOLECULAR MABDR See Special [facility] Report CLINICAL PATHOLOGY Specimen EDTA Whole Blood Performing Organization Address [facility] Phone Number [facility] CLINICAL PATHOLOGY [address] [place] [address] HLA Antibody ID Screen (01/31/2019 4:00 PM EST) HLA ANTIBODY ID See Special [facility] SCREEN Report CLINICAL PATHOLOGY Specimen Serum Performing Organization Address [facility] Phone Number [facility] PATHOLOG[facility] [address] [place] [address] HIV Ag Ab Combo Screen (01/31/2019 4:00 PM EST) HIV Ag Ab Combo Non Reactive Non Reactive [facility] Screen Comment: [facility] Negative for HIV-1 p24 antigen Pathology and HIV-1/HIV-2 antibodies. No laboratory evidence of HIV infection. Specimen Serum Performing Organization Address [facility] Phone Number [facility] CLINICAL PATHOLOGY [address] [place] [address] [phone] [facility] [address] [place] [address] Pathology Hepatitis C antibody (01/31/2019 4:00 PM EST) Hepatitis C Ab Reactive (A)Comment: Non Reactive [facility] Past or current Univ Clin Hepatitis C Pathology infection. Specimen forwarded to reference laboratory for quantitative HCV RNA testing. Specimen Serum Performing Organization Address [facility] Phone Number [facility] CLINICAL PATHOLOGY [address] [place] [address] [phone] [facility] [address] [place] [address] Pathology Hepatitis B surface antigen (01/31/2019 4:00 PM EST) Pathologist [facility] Hepatitis B Non Non Reactive [facility] Surface Ag ReactiveComment: No Univ Clin active or previous Pathology infection. Susceptible to infection. Specimen Serum Performing Organization Address [facility] Phone Number [facility] CLINICAL PATHOLOGY [address] [place] [address] [facility] [address] [place] [address] Pathology Hepatitis B surface antibody (01/31/2019 4:00 PM EST) Hepatitis B 8 (L) >11.4 [facility] Surface Ab Comment: m[IU]/mL Univ Clin Non Reactive Pathology No active or previous infection. Susceptible to infection. Specimen Serum Performing Organization Address [facility] Phone Number [facility] CLINICAL PATHOLOGY [address] [place] [address] [facility] [address] [place] [address] Pathology Hepatic Function Panel (01/31/2019 4:00 PM EST) Albumin 4.7 3.5 - 5.2 g/dL [facility] Pathology Bilirubin, Total 0.6 <1.2 mg/dL [facility] Pathology Bilirubin, Direct 0.2 <0.3 mg/dL [facility] Pathology Alkaline Phosphatase 62 40 - 129 U/L [facility] Pathology AST/SGO 24 <40 U/L [facility] Pathology ALT/SGP 20 <41 U/L [facility] Pathology Total Protein 7.8 6.4 - 8.3 g/dL [facility] Pathology Specimen Plasma Performing Organization Address [facility] Phone Number [facility] PATHOLOG[facility] [address] [place] [address] [phone] [facility] [address] [place] [address] Pathology G6Pd, Qualitative (01/31/2019 4:00 PM EST) G6PD,Qualitative Normal Normal [facility] Pathology Specimen Plasma Performing Organization Address [facility] Phone Number [facility] [address] [place] [address] [facility] [address] [place] [address] Pathology EBV Panel (01/31/2019 4:00 PM EST) Carlee-Krause VCA 4.12 (H)Comment: <0.91 {ISR} [facility] IgG p18 antibody Positive Univ Clin Pathology EBV Nuclear 2.28 (H)Comment: <0.91 {ISR} [facility] Med Antigen Ab Positive [facility] Pathology EBV VCA IgM 0.01Comment: <0.91 {ISR} [facility] Antibody Negative [facility] Pathology Specimen Serum Performing Organization Address [facility] Phone Number [facility] PATHOLOG[facility] [address] [place] [address] [phone] [facility] [address] [place] [address] Pathology CMV IgG (01/31/2019 4:00 PM EST) CMV IgG Antibody Negative Negative [facility] Pathology Specimen Serum Performing Organization Address [facility] Phone Number [facility] CLINICAL PATHOLOGY [address] [place] [address] [phone] [facility] [address] [place] [address] Pathology CBC and Differential (01/31/2019 4:00 PM EST) White Blood Cell 5.3 4 - 10 [facility] 10*3/uL [facility] Pathology Red Blood Cell 3.72 (L) 4.6 - 6.1 [facility] 10*6/uL Univ Clin Pathology Hemoglobin 11.2 (L) 13.5 - 18 [facility] g/dL [facility] Pathology Hematocrit 32.8 (L) 41 - 53 % [facility] Univ Clin Pathology Mean Cell Volume 88.2 80 - 96 fL [facility] Univ Clin Pathology Mean Cell Hemoglobin 30.1 27 - 33 pg [facility] Pathology Mean Cell Hgb Conc 34.1 32.0 - 36.0 [facility] g/dL Univ Clin Pathology Red Cell Dist Width 12.6 11.5 - 14.5 % [facility] Univ Clin Pathology Platelet Count 155 150 - 400 [facility] 10*3/uL Univ Clin Pathology Differential Type Automated Diff [facility] Clin Pathology Neutrophil 72 % [facility] Clin Pathology Lymphocyte 12 % [facility] Univ Clin Pathology Monocyte 10 % [facility] Univ Clin Pathology Eosinophil 5 % [facility] Univ Clin Pathology Basophil 1 % [facility] Univ Clin Pathology Abs Neutrophil 3.76 1.8 - 7.0 [facility] 10*3/uL Univ Clin Pathology Abs Lymphocyte 0.65 (L) 1.2 - 4.0 [facility] Med 10*3/uL [facility] Clin Pathology Abs Monocyte 0.53 0 - 0.8 [facility] Med 10*3/uL Univ Clin Pathology Abs Eosinophil 0.27 0 - 0.5 [facility] 10*3/uL Univ Clin Pathology Abs Basophil 0.06 0 - 0.2 [facility] 10*3/uL [facility] Clin Pathology Nucleated Red Blood 0 0 - 0 [facility] Cells /100{WBCs} [facility] Pathology Specimen EDTA Whole Blood Performing Organization Address City/[facility] Phone Number [facility] PATHOLOG[facility] [address] [place] [address] [facility] [address] [place] [address] Pathology Cardiolipin antibody, IgG (01/31/2019 4:00 PM EST) Cardiolipin IgG Ab 12.3Comment: Negative <20.0 U/mL [facility] results do not rule out [facility] Antiphospholipid Pathology syndrome. Additional APL testing should be considered. Specimen Serum Performing Organization Address City/[facility] Phone Number [facility] [address] [place] [address] [facility] [address] [place] [address] Pathology Basic Metabolic Panel (01/31/2019 4:00 PM EST) Bicarbonate 25 22 - 29 mmol/L [facility] Pathology Chloride 96 (L) 98 - 107 mmol/L [facility] Pathology Creatinine 4.61 (H) 0.70 - 1.20 [facility] mg/dL Univ Clin Pathology Glucose 104 70 - 140 mg/dL [facility] Pathology Potassium 4.2 3.4 - 5.1 [facility] mmol/L [facility] Pathology Sodium 135 (L) 136 - 145 [facility] mmol/L [facility] Pathology Blood Urea Nitrogen 94 (H) 8 - 23 mg/dL [facility] Pathology Anion Gap 14 8 - 15 mmol/L [facility] Pathology Osmolality, Evangelist 309 (H) 275 - 300 [facility] mosm/kg Univ Clin Pathology BUN/Cre Ratio 20 [facility] Pathology Calcium 9.4 8.8 - 10.2 [facility] mg/dL Univ [facility] Pathology GFR Non 12 (L) >60 [facility] [place]une[place] 2008 CDK-EPI mL/min/1.73m2 Univ Clin Pathology GFR 14 (L) >60 [facility] 2009 CKD-EPI mL/min/1.73m2 [facility] Pathology Specimen Plasma Performing Organization Address City/[facility]/Zipcode Phone Number [facility] CLINICAL PATHOLOGY [address] [place] [address] [facility] [address] [place] [address] Pathology Renal Type and Screen (01/31/2019 10:55 AM EST) Blood Component Red Cells [facility] Univ Clin Pathology ABO/RH(D) O POS [facility] Pathology ROOM TEMP AB SCREEN NEG [facility] Pathology Gel Antibody Screen NEG [facility] Pathology Site Performed at [facility], Univ Clin [facility], Pathology [place], [place] Specimen EDTA Whole Blood Performing Organization Address City/[facility]/Zipcode Phone Number [facility] CLINICAL PATHOLOGY [address] [place], [place] [address] [phone] [facility] [address] [place] [address] Pathology documented in this encounter Visit Diagnoses Diagnosis Preoperative examination, unspecified - Primary documented in this encounter
--- OUTSIDE RECORDS SUMMARY | 2019-03-08 20:52 | XMS REPORT | Summary of Care ---
:1950 Author Organization [facility] Address [address] [place] [address] Care Team Providers Name Role Phone Zoya Farmer MD Primary Care Provider Encounter Details Date Type Department Care Team Description 01/31/2019 Hospital Encounter Diagnostic Radiology Preoperative [facility] examination, [address] [facility] unspecified [address] [place] [address] Allergies No Known Allergiesdocumented as of this encounter (statuses as of 02/01/2019) Medications Medication Sig Dispensed Refills Start Date [...] as of this encounter (statuses as of 02/01/2019) Active Problems Problem Noted Date CKD (chronic kidney disease), stage IV CAD (coronary artery disease) Hypertension documented as of this encounter (statuses as of 02/01/2019) Social History Tobacco Use Types Packs/Day Years Used Date Never Assessed Sex Assigned at Date Recorded Not on file Job Start Date Occupation Industry Not on file Not on file Not on file Travel History Travel Start Travel End No recent travel history available. documented as of this encounter Last Filed Vital Signs Not on filedocumented in this encounter Plan of Treatment Date Type Specialty Care Team Description 02/04/2020 Office Visit Transplant Gavin Sarabia MD [facility] [place] [address] [phone] Name Type Priority Associated Diagnoses Date/Time XR Chest Frontal and Imaging Routine Preoperative examination, 01/31/2019 4:29 PM Lateral unspecified EST Name Type Priority Associated Diagnoses Order Schedule XR Chest Frontal and Imaging Routine Preoperative examination, As Needed for 1 Lateral unspecified Occurrences starting 01/31/2019 until 01/31/2019 Health Maintenance Due Date Last Done Comments MMR Vaccines (1 of 1 - Standard 1951 series) Varicella Vaccines (1 of 2 - 1951 2-dose childhood series) DTaP,Tdap,and Td Vaccines (1 - 1956 Tdap) Colon Cancer Screening 10 yrs 05/18/1999 Zoster Vaccines (1 of 2) 05/18/1999 Pneumococcal Vaccine: 65+ Years (1 2014 of 2 - PCV13) Influenza Vaccine 11/13/2018 Hepatitis C Screening (B. Completed 01/31/2019 [id number]) HIB Vaccines Aged Out No longer eligible [...] age to complete this topic Pneumococcal Vaccine: Pediatrics Aged Out No longer eligible based on (0 to 5 Years) and At-Risk patient's age to complete Patients (6 to 64 Years) this topic documented as of this encounter Results Not on filedocumented in this encounter Visit Diagnoses Diagnosis Preoperative examination, unspecified documented in this encounter
[2019-03-08] MEDS ORDERED: Nitro 2% OINT* (Nitroglycerin) 1 INCH/PAK PAK TOPICAL ONE (21:02)
[2019-03-08] MEDS ORDERED: Morphine 4 MG/ML VIAL (1 ml) 4 MG/ML VIAL IV ONE (21:03)
--- NOTE | 2019-03-08 21:18 | ED ---
HPI Chest Pain - HPI Summary HPI Summary: The pt is a 68 yr old male presenting to [facility] c/o chest pain beginning 1 hour [employer]. He states that the pain began in his neck then radiated to his shoulder and chest. He was watching TV when the pain began. He took 1 nitro and 324 aspirin prior to being seen in the room. He rates his current pain severity due to the CP a 4/10. No aggravating or alleviating factors noted. He also reports some dizziness. He has Hx of triple bypass, [place] in 2007, and aortic aneurysm repair surgery. - History of Current Complaint Chief Complaint: EDChestPainROMI Time Seen by Provider: 03/08/19 20:56 Hx Obtained From: Patient Onset/Duration: Started Hours Ago, Still Present Time of Onset: 20:00 Timing: Constant, Lasting Hours Initial Severity: Moderate Current Severity: Moderate Pain Intensity: 4 Pain Scale Used: 0-10 Numeric Chest Pain Location: Diffuse Chest Pain Radiates: Yes Chest Pain Radiates To:: Shoulder, Neck Aggravating Factor(s): Nothing Alleviating Factor(s): Nothing Associated Signs and Symptoms: Positive: Chest Pain, Dizziness, Other: - pos - neck pain, - Allergy/Home Medications Allergies/Adverse Reactions: Allergies Allergy/AdvReac Type Severity Reaction Status Date / Time plasma Allergy Severe anaphylaxis Uncoded 03/08/19 20:56 Home Medications: Home Medications Epoetin Nicholas-Epbx * [Retacrit] 10,000 unit SUBCUT TUT 03/08/19 [History Confirmed 03/08/19] Ferrous Sulfate TAB* 325 mg PO DAILY 03/08/19 [History Confirmed 03/08/19] Metoprolol Succinate XL TAB* [Toprol XL TAB*] 12.5 mg PO DAILY 03/08/19 [ History Confirmed 03/08/19] PMH/Surg Hx/FS Hx/Imm Hx Endocrine/Hematology History: Reports: Hx Anticoagulant Therapy - COUMADIN, Hx Blood Transfusions, Hx Anemia, Hx Unexplained Bleeding - recurrent GI bleeding Denies: Hx Diabetes Cardiovascular History: Reports: Hx Angina, Hx Congestive Heart Failure, Hx Coronary Artery Disease, Hx Hypercholesterolemia - HLD, Hx Hypertension, Hx Valvular Heart Disease - AORTIC REPLACEMENT 2007 Denies: Hx Pacemaker/ICD Respiratory History: Reports: Hx Asthma, Hx Seasonal Allergies GI History: Reports: Hx Gastrointestinal Bleed - recurrent, Other GI Disorders - polyps/hemmorhoids Denies: Hx Gastroesophageal Reflux Disease History: Reports: Hx Chronic Renal Failure - stage III kidney failure Sensory History: Reports: Hx Contacts or Glasses Denies: Hx Hearing Aid Opthamlomology History: Reports: Hx Contacts or Glasses Psychiatric History: Reports: Hx Depression Denies: Hx Panic Disorder - Surgical History Surgery Procedure, Year, and Place: CABG x 3 vessels with aortic valve replacement and aneurysm repair, Bilateral Inguinal Hernia x2, Cholecystectomy Hx Anesthesia Reactions: No - Immunization History Date of Tetanus Vaccine: PT STATES UNSURE Date of Influenza Vaccine: 2012 Infectious Disease History: No Infectious Disease History: Reports: Hx Hepatitis - at age 21 Denies: Hx Clostridium Difficile, Hx Human Immunodeficiency Virus (HIV), Hx of Known/Suspected MRSA, Hx Shingles, Hx Tuberculosis, Traveled Outside the [place] in Last 30 Days - Family History Known Family History: Negative: Renal Disease - Social History Alcohol Use: None Alcohol Amount: "had to stop" 08/2013 Substance Use Type: Reports: None Smoking Status (MU): Former Smoker Type: Cigars Amount Used/How Often: quit in 1994 Have You Smoked in the Last Year: No Review of Systems Positive: Chest Pain Musculoskeletal: Other - pos - neck pain, shoulder pain Neurological: Other - pos - dizziness All Other Systems Reviewed And Are Negative: Yes Physical Exam - Summary Physical Exam Summary: Appearance: Well-appearing, Well-nourished, lying in bed comfortably Skin: Warm, dry, no obvious rash, color is good Eyes: sclera anicteric, no conjunctival pallor ENT: mucous membranes moist, pharynx appears normal Neck: Supple, nontender Respiratory: Clear to auscultation, no signs of respiratory distress Cardiovascular: Normal S1, S2. No murmurs. Normal distal pulses in tibial and radial bilaterally. Abdomen: Soft, nontender, normal active bowel sounds present Musculoskeletal: Normal, Strength/ROM Intact Neurological: A&Ox3, awake and alert, mentation is normal, speech is fluent and appropriate Psychiatric: affect is normal, does not appear anxious or depressed Triage Information Reviewed: Yes Vital Signs On Initial Exam: Initial Vitals Temp Pulse Resp BP Pulse Ox 97.4 F 64 14 152/80 99 03/08/19 20:54 03/08/19 20:54 03/08/19 20:54 03/08/19 20:54 03/08/19 20:54 Vital Signs Reviewed: Yes Procedures - Sedation Patient Received Moderate/Deep Sedation with Procedure: No Diagnostics - Vital Signs Vital Signs Temp Pulse Resp BP Pulse Ox 03/08/19 20:57 63 13 99 03/08/19 20:54 97.4 F 64 14 152/80 99 - Laboratory Result Diagrams: 03/09/19 03:49 03/08/19 21:38 Lab Statement: Any lab studies that have been ordered have been reviewed, and results considered in the medical decision making process. - EKG 2049 Cardiac Rate: NL - 66 bpm EKG Rhythm: Sinus Rhythm Summary of EKG Findings: EKG @ 2049 reveals SR @ 66 bpm, atrial premature complex, LVH with IVCD, LAD and secondary repolarization abnormal, and borderline prolonged QT interval. 2113 Cardiac Rate: NL EKG Rhythm: Sinus Rhythm - 67 bpm Summary of EKG Findings: EKG @ 2113 reveals NSR @ 67 bpm. No STEMI. Chest Pain Course/Dx - Course Course Of Treatment: The pt is a 68 yr old male presenting to [facility] c/o chest pain beginning 1 hour [employer]. He states that the pain began in his neck then radiated to his shoulder and chest. Lab results normal except for 3.26, Hgb 9.9 , Hct 28, Plt Count 141, Absolute Lymphs 0.9, D-Dimer 396, Anion Gap 12, BUN 105 , Creatinine 4.98, BUN/Creatinine Ratio 21.1, Glucose 151, and troponin 0.33. EKG @ 2049 reveals SR @ 66 bpm, atrial premature complex, LVH with IVCD, LAD and secondary repolarization abnormal, and borderline prolonged QT interval. EKG @ 2113 reveals NSR @ 67 bpm. No STEMI. Final dx is acute coronary syndrome. Dr. Rose will admit the pt to [facility]. Pt is agreeable with this plan. - Diagnoses Provider Diagnoses: Acute coronary syndrome - Provider Notifications Discussed Care Of Patient With: Cheri Rose - Dr. Rose will admit pt to [facility]. Time Discussed With Above Provider: 22:22 Instructed by Provider To: Admit As Inpatient - Critical Care Time Critical Care Time: 30-74 min Discharge ED - Sign-Out/Discharge Documenting (check all that apply): Patient Departure - admit - Discharge Plan Condition: Stable Disposition: ADMITTED TO [facility] - Billing Disposition and Condition Condition: STABLE Disposition: Admitted to [facility] - Attestation Statements Document Initiated by Kamiibe: Yes Documenting Scribe: Live Godoy Provider For Whom Garret is Documenting (Include Credential): Marcelo Chavez MD Scribe Attestation: ILive, scribed for Marcelo Chavez MD on 03/09/19 at 0505. Scribe Documentation Reviewed: Yes Provider Attestation: The documentation as recorded by the Live valerio accurately reflects the service I personally performed and the decisions made by me, Marcelo Chavez MD Status of Scribe Document: Viewed
[2019-03-08 21:46] LABS: ABS Basophils 0.1 10^3/ul (0-0.2); ABS Eosinophils 0.3 10^3/ul (0-0.6); ABS Lymphocytes 0.9 10^3/ul (1.0-4.8); ABS Monocytes 0.7 10^3/ul (0-0.8); ABS Neutrophils 5.6 10^3/ul (1.5-7.7); Eosinophil % 3.9 %; Hematocrit 28 % (42-52); Hemoglobin 9.9 g/dL (14.0-18.0); Lymphocyte % 11.4 %; Mean Corpuscular HGB Conc 35 g/dL (31-36); Mean Corpuscular Hemoglobin 30 pg (27-31); Mean Corpuscular Volume 86 fL (80-94); Platelet Count 141 10^3/uL (150-450); Red Blood Count 3.26 10^6 /uL (4.18-5.48); Red Cell Distribution Width 13 % (10-15); White Blood Count 7.6 10^3/uL (3.5-10.8)
[2019-03-08 22:03] LABS: ALT 14 U/L (7-52); AST 19 U/L (13-39); Albumin 4.2 g/dL (3.2-5.2); Albumin/Globulin Ratio 1.4 (1-3); Alkaline Phosphatase 55 U/L (34-104); Anion Gap 12 mmol/L (2-11); BUN/Creatinine Ratio 21.1 (8-20); Blood Urea Nitrogen 105 mg/dL (6-24); CO2 Carbon Dioxide 25 mmol/L (22-32); Calcium 8.9 mg/dL (8.6-10.3); Chloride 101 mmol/L (101-111); EGFR African American 14.1 (>60); EGFR Non-African American 11.6 (>60); Glucose 151 mg/dL (70-100); Potassium 3.7 mmol/L (3.5-5.0); Sodium 138 mmol/L (135-145); Total Protein 7.2 g/dL (6.4-8.9)
[2019-03-08 22:08] LABS: Troponin I 0.33 ng/mL (<0.03)
[2019-03-08] MEDS ORDERED: Heparin for STEMI(*) 5,000 UNITS/ML 1 ML VIAL IV ONE (22:16)
[2019-03-08] MEDS: Heparin DRIP 25,000 UNITS(*) 25,000 UNITS/500 ML BAG IV SCH (22:31)
[2019-03-08] MEDS ORDERED: Heparin VIAL(*) 5000 UNITS/ML VIAL (FIVE THOUSAND) IV SCH (23:00)
[2019-03-08 23:49] LABS: Activated Partial Thrombo Time 36.8 seconds (26.0-38.0)
[2019-03-09 00:16] LABS: Magnesium 2.3 mg/dL (1.9-2.7)
[2019-03-09 00:46] LABS: Troponin I 0.36 ng/mL (<0.03)
[2019-03-09 03:56] LABS: ABS Lymphocytes 0.4 10^3/ul (1.0-4.8); ABS Monocytes 0.5 10^3/ul (0-0.8); ABS Neutrophils 6.1 10^3/ul (1.5-7.7); Eosinophil % 0.6 %; Hematocrit 26 % (42-52); Hemoglobin 8.8 g/dL (14.0-18.0); Lymphocyte % 5.6 %; Mean Corpuscular HGB Conc 34 g/dL (31-36); Mean Corpuscular Hemoglobin 30 pg (27-31); Mean Corpuscular Volume 88 fL (80-94); Nucleated Red Blood Cells % 0.1; Platelet Count 130 10^3/uL (150-450); Red Blood Count 2.98 10^6 /uL (4.18-5.48); Red Cell Distribution Width 14 % (10-15)
[2019-03-09 04:12] LABS: Activated Partial Thrombo Time 82.6 seconds (26.0-38.0)
[2019-03-09 04:19] LABS: Troponin I 0.24 ng/mL (<0.03)
[2019-03-09 05:58] LABS: INR 1.94 (0.82-1.09)
--- NOTE | 2019-03-09 06:03 | ADMNOTE ---
Subjective Interval History: this is my H/P 68 yo male with hx of CABG presenting with left sided chest pain that started this evening. He said he had a stress test earlier this week, felt uncomfortable afterwards but was told he was okay. Now a few days later, while watching TV, he abruptly developed this pain on the right side of his neck that quickly settled to his chest and back. His said he was diaphoretic and pale during the event. Pt said he felt he was going to lose consciousness. He took nitro and aspirin at home which were not helpful. In the ED his pain only got better after he received nitro and morphine. EKG was unchanged. He has a mild bump in his troponins. Pt has hx of CABG, metallic valve on warfarin and hx of aneurysm repair in 2007. Family History: Unchanged from Admission Social History: Unchanged from Admission Past Medical History: Unchanged from Admission Review of Systems - Measurements Intake and Output: Intake and Output Last 24 Hours 03/06/19 03/07/19 03/08/19 03/09/19 06:59 06:59 06:59 06:59 Intake Total 0 Balance 0 Weight 208 lb 9.6 oz Intake: Oral 0 - Review of Systems Constitutional Symptoms: Negative: Weight Gain, Weight Loss, Weakness, Fatigue, Fever, Night Sweats, Unexplained Falls, Other Dermatology: Negative: Normal, Rash, Skin Lesions, Cancer, Skin Lumps, Other HEENT: Negative: Normal, Change in Hearing, Vertigo, Dental Problems, Tinnitus, Sinus Problem, Other Eyes: Negative: Normal, Change in Vision, Double Vision, Eye Pain, Glaucoma, Cataract, Contacts or Glasses, Other Thyroid: Negative: Normal, Goiter, Thyroid Nodule, Cold Intolerance, Heat Intolerance , Sweatiness, Tremor, Frequent Defecation, Constipation, Palpitations, Primary Hypothyroidism, Primary Hyperthyroidism, Weight Loss, Weight Gain, Change in Skin/Hair, Change in Menstruation, Radiation Exposure, Other Pulmonary: Negative: Normal, Cough, Sputum, Hemoptysis, Wheezing, Respiratory Distress, Shortness of Breath, COPD, Asthma, Exercise Intolerance, Home Oxygen, Other Cardiology: Positive: Chest Pain, Faintness Negative: Normal, Shortness of Breath, Palpitations, Swelling of Ankles, Peripheral Vascular Dis, Edema, Syncope, Claudication, Proximal NocturnalDyspnea , Orthopnoea, Other Gastroenterology: Negative: Normal, Abdominal Pain, Nausea, Vomiting, Anorexia, Indigestion, Difficulty Swallowing, Heartburn, Constipation, Diarrhea, Blood in Stools, Change in Bowel Habits, Haematemesis, Melena, Other Musculoskeletal: Negative: Joint Pain, Joint Stiffness, Arthritis, Osteoporosis, Low Back Pain , Sciatica, Joint Deformities, Kyphoscoliosis, Other Neurology: Negative: Normal, Headache, Migraines, Change in Vision, Diplopia, Dizziness , Change in Balancing, Change in Coordination, Change in Memory, Change in Speech, Change in Sphincter Function, Change in Walking, Numbness\Paresthesiae, Unexplained Weakness, Hx of Stroke\TIA, Hx of Seizures, Other Objective Active Medications: Albuterol/Ipratropium (Combivent Respimat(Nf)) 1 puff INH QID [facility]; Protocol Amlodipine Besylate (Norvasc Tab*) 10 mg PO DAILY [facility] Atorvastatin Calcium (Lipitor*) 40 mg PO DAILY [facility] Fluticasone Propionate (Flonase Nasal [place] 50mcg*) 2 spray BOTH NARES DAILY [facility] Heparin Sodium (Porcine) (Heparin Vial(*)) 0 units IV .PER PROTOCOL [facility] Last Admin: 03/08/19 22:33 Dose: 4,000 units Hydralazine HCl (Apresoline Tab*) 50 mg PO TID [facility] Heparin Sodium/Dextrose (Heparin Drip 25,000 Units(*)) 25,000 units in 500 mls @ 0 mls/hr IV PER RATE [facility]; Protocol Last Admin: 03/08/19 22:31 Dose: 20 mls/hr Isosorbide Mononitrate (Isosorbide Mononitrate (Nf)) 60 mg PO DAILY [facility]; Protocol Lisinopril (Prinivil Tab*) 20 mg PO DAILY [facility] Metoprolol Succinate (Toprol Xl Tab*) 12.5 mg PO DAILY [facility] Nitroglycerin (Nitroglycerin Tab 0.4 Mg*) 0.4 mg SL Q5M PRN PRN Reason: ANGINA Vital Signs - 8 hr 03/08/19 03/08/19 03/08/19 22:00 22:09 22:24 Temperature Pulse Rate 57 54 Respiratory 13 17 18 Rate Blood Pressure 138/62 145/64 (mmHg) O2 Sat by Pulse 98 99 Oximetry 03/08/19 03/08/19 03/08/19 22:39 22:54 23:00 Temperature Pulse Rate 56 55 55 Respiratory 22 10 13 Rate Blood Pressure 124/62 137/63 (mmHg) O2 Sat by Pulse 98 99 99 Oximetry 03/08/19 03/08/19 03/08/19 23:09 23:24 23:26 Temperature Pulse Rate 52 56 54 Respiratory 10 13 11 Rate Blood Pressure 130/62 134/67 (mmHg) O2 Sat by Pulse 99 98 98 Oximetry 03/08/19 03/08/19 03/09/19 23:39 23:54 00:00 Temperature Pulse Rate 56 56 56 Respiratory 13 15 17 Rate Blood Pressure 130/61 133/64 (mmHg) O2 Sat by Pulse 98 99 98 Oximetry 03/09/19 03/09/19 03/09/19 00:09 00:24 00:28 Temperature Pulse Rate 58 55 Respiratory 16 11 12 Rate Blood Pressure 131/63 149/67 (mmHg) O2 Sat by Pulse 98 99 Oximetry 03/09/19 03/09/19 03/09/19 01:04 01:24 03:36 Temperature 97.4 F 97.3 F 97.7 F Pulse Rate 55 59 54 Respiratory 15 12 16 Rate Blood Pressure 135/63 144/59 125/54 (mmHg) O2 Sat by Pulse 98 99 97 Oximetry Oxygen Devices in Use Now: None Appearance: pleasant, sluggish after the morphine Eyes: No Scleral Icterus, PERRLA Neck: NL Appearance and Movements; NL JVP, Trachea Midline Respiratory: Symmetrical Chest Expansion and Respiratory Effort, Clear to Auscultation Cardiovascular: NL Sounds; No Murmurs; No JVD Abdominal: NL Sounds; No Tenderness; No Distention Skin: No Rash or Ulcers, No Nodules or Sclerosis Neurological: Alert and Oriented x 3 Result Diagrams: 03/09/19 03:49 03/08/19 21:38 Assess/Plan/Problems-Billing Assessment: - Patient Problems (1) Chest pain Current Visit: Yes Status: Acute Code(s): R07.9 - CHEST PAIN, UNSPECIFIED SNOMED Code(s): 48720756 Comment: pt has hx of CAD, aortic valve replacement and thoracic aneurysmal repair He does not have any recollection of which type of thoracic aneurysm it was but he believes it was repaired at the same time he had the CABG and the valve replaced. Chest pain is likely from a cardiac event, will trend troponins but His hx of aneurysmal repair however is a little concerning especially when he is presenting with chest radiating to his back. I ordered a TTE that might give me some information. Still discussing with pt risk of CTA in the setting of renal failure ( he has CKD stage 5). He so far has refused and want to get in touch with [facility] first before putting himself at risk for dialysis with the contrast. Pt has a metallic valve, is on a strict INR goal 2-3. Will switch him to heparin drip instead. (2) Full code status Current Visit: Yes Status: Acute Code(s): Z78.9 - OTHER SPECIFIED HEALTH STATUS SNOMED Code(s): 414870676 Comment: is HCP (3) Aortic valve replaced Current Visit: Yes Status: Acute Code(s): Z95.2 - PRESENCE OF PROSTHETIC HEART VALVE SNOMED Code(s): 4982350525012 Comment: metallic valve, on warfarin at home. switching to heparin (4) DVT prophylaxis Current Visit: Yes Status: Acute Code(s): Z29.9 - ENCOUNTER FOR PROPHYLACTIC MEASURES, UNSPECIFIED SNOMED Code(s): 940653001 Comment: on heparin drip (5) CKD (chronic kidney disease) stage 5, GFR less than 15 ml/min Current Visit: Yes Status: Acute Code(s): N18.5 - CHRONIC KIDNEY DISEASE, STAGE 5 SNOMED Code(s): 637074393 Comment: at baseline
[2019-03-09] MEDS: Albuterol/Ipratropium RESP(NF) MDI (Combivent Respimat) INH SCH ×3 (08:05→19:27)
[2019-03-09] MEDS: Lisinopril TAB* 10 MG PO SCH (08:08)
[2019-03-09] MEDS: Atorvastatin* 40 MG TAB PO SCH (08:08)
[2019-03-09] MEDS: amLODIPine TAB* 5 MG PO SCH (08:08)
[2019-03-09] MEDS: hydrALAZINE TAB* 25 MG PO SCH ×3 (08:08→21:28)
[2019-03-09] MEDS: Metoprolol Succinate XL TAB* 25 MG PO SCH (08:09)
[2019-03-09] MEDS: Fluticasone NASAL SPRAY 50MCG* 16 gm SPRAY BTL BOTH NARES SCH (08:09)
[2019-03-09] MEDS ORDERED: CMC:Isosorbide Mononitrate (NF) 20 MG TAB PO SCH (09:00)
[2019-03-09 09:47] LABS: Anion Gap 11 mmol/L (2-11); BUN/Creatinine Ratio 19.9 (8-20); Blood Urea Nitrogen 100 mg/dL (6-24); CO2 Carbon Dioxide 24 mmol/L (22-32); Calcium 8.6 mg/dL (8.6-10.3); Chloride 103 mmol/L (101-111); EGFR African American 13.9 (>60); EGFR Non-African American 11.5 (>60); Glucose 111 mg/dL (70-100); Sodium 138 mmol/L (135-145)
--- NOTE | 2019-03-09 10:22 | PN ---
Subjective Date of Service: 03/09/19 Interval History: HOSPITALIST PROGRESS NOTE Patient seen and examined at bedside. Care reviewed and d/w Yamila Soler RN. He is feeling well this AM, no further episodes of neck or back pain. He describes an episode of neck pain radiating between shoulder blades when he had his stress test on 03/04/2019. Despite being referred to ED, he thought it was musculoskeletal and it had resolved by the time he went home. Last night he had a similar episode while watching TV, associated with diaphoresis and near syncope. Family History: Unchanged from Admission Social History: Unchanged from Admission Past Medical History: Unchanged from Admission Objective Active Medications: Albuterol/Ipratropium (Combivent Respimat(Nf)) 1 puff INH QID [facility]; Protocol Last Admin: 03/09/19 08:05 Dose: Not Given Amlodipine Besylate (Norvasc Tab*) 10 mg PO DAILY [facility] Last Admin: 03/09/19 08:08 Dose: 10 mg Atorvastatin Calcium (Lipitor*) 40 mg PO DAILY [facility] Last Admin: 03/09/19 08:08 Dose: 40 mg Fluticasone Propionate (Flonase Nasal [place] 50mcg*) 2 spray BOTH NARES DAILY [facility] Last Admin: 03/09/19 08:09 Dose: 2 spray Heparin Sodium (Porcine) (Heparin Vial(*)) 0 units IV .PER PROTOCOL [facility] Last Admin: 03/08/19 22:33 Dose: 4,000 units Hydralazine HCl (Apresoline Tab*) 50 mg PO TID [facility] Last Admin: 03/09/19 08:08 Dose: 50 mg Heparin Sodium/Dextrose (Heparin Drip 25,000 Units(*)) 25,000 units in 500 mls @ 0 mls/hr IV PER RATE [facility]; Protocol Last Admin: 03/08/19 22:31 Dose: 20 mls/hr Isosorbide Mononitrate (Isosorbide Mononitrate (Nf)) 60 mg PO DAILY [facility]; Protocol Last Admin: 03/09/19 08:08 Dose: 60 mg Lisinopril (Prinivil Tab*) 20 mg PO DAILY [facility] Last Admin: 03/09/19 08:08 Dose: 20 mg Metoprolol Succinate (Toprol Xl Tab*) 12.5 mg PO DAILY [facility] Last Admin: 03/09/19 08:09 Dose: 12.5 mg Nitroglycerin (Nitroglycerin Tab 0.4 Mg*) 0.4 mg SL Q5M PRN PRN Reason: ANGINA Vital Signs - 8 hr 03/09/19 03/09/19 03/09/19 03:36 07:13 07:15 Temperature 97.7 F 97.9 F Pulse Rate 54 51 Respiratory 16 18 16 Rate Blood Pressure 125/54 131/55 (mmHg) O2 Sat by Pulse 97 97 Oximetry Oxygen Devices in Use Now: None Appearance: Pleasant gentleman sitting up in NAD Eyes: No Scleral Icterus Ears/Nose/Mouth/Throat: Mucous Membranes Moist Neck: Trachea Midline Respiratory: Symmetrical Chest Expansion and Respiratory Effort, Clear to Auscultation Cardiovascular: RRR - Normal S1 and S2 Extremities: No Edema Neurological: Alert and Oriented x 3, NL Muscle Strength and Tone Result Diagrams: 03/09/19 03:49 03/09/19 03:40 Assess/Plan/Problems-Billing Assessment: Mr Brown is a 68yo M with PMH of CAD s/p CABG, thoracic aneurysm, mechanical AVR, PUD, CKD stage 5, HFrEF, who presents to ED with c/o neck and back pain with troponin elevation concerning for ACS. - Patient Problems (1) ACS (acute coronary syndrome) Comment: - Patient had symptoms during stress test on 03/04/2019 and declined evaluation in the ED. - Records obtained form [facility] show "THE STRESS TEST IS MARKEDLY ABNORMAL WITH EVIDENCE OF ISCHEMIC CARDIOMYOPATHY WITH MODERATE TO SEVERE ISCHEMIA IN THE INFEROLATERAL WALL WITH BASELINE INFARCTION IN THE BASE INFERIOR WALL. THE EF IS MARKEDLY REDUCED AND TID IS ELEVATED, ALL CONSISTENT WITH SEVERE CORONARY DISEASE." - Multiple conversations with Cardiology (Dr Borden) today - plan to transfer to ICU for Nitro drip as he is having recurrent symptoms; continue heparin drip , statin, metoprolol. D/w Dr Nolasco. - His symptoms are also concerning for aortic dissection, since he also c/o back pain. Discussed risks of emergent dyalisis with contrast use on his CKD stage 5. He declines any contrast studies at this time and if he needs to have one (be it cardiac cath or angiogram) he would like to have that done at [facility]. CxR shows cardiomegaly. D/w Cardiology - echocardiogram can be attempted to look at his aorta after he is transferred to ICU. (2) Aortic valve replaced Comment: - Metallic valve - continue heparin drip. (3) CKD (chronic kidney disease) stage 5, GFR less than 15 ml/min Comment: - GFR ~11, at baseline. - Being prepared for dyalisis as outpatient. Plan for PD catheter placement with Dr Prather in near future, but not scheduled yet. He is interesting in enrolling at the transplant list from [facility]. (4) DVT prophylaxis Comment: - Heparin drip. (5) Full code status Status and Disposition: Inpatient. Very complex case with overall poor prognosis. Will transfer to [facility] service.
--- NOTE | 2019-03-09 11:38 | HP ---
H&P (Free Text) History and Physical: Full Dictation to follow Cardiology H+P/Consult 68 yo followed by Curtis Stevens for cardiology, hx mechanical AVR, CABG, CM with CKD Stage 5. Pt underwent stress test (Curtis Nguyen), had neck pain during imaging portion , resolved.(Monday) Yesterday, Monday03/08/2019 while watching TV developed neck pain, posterior left radiating down back to axilla and left chest, associated with nausea, shaking, near syncope, SOB. Per pt appeared cagle, ill. Ate home made pizza that night, had CBD spread, not a new thing for him. No recent orthopnea/PND/leg swelling. Active Medications Generic Name Dose Route Start Last Admin Trade Name Freq PRN Reason Stop Dose Admin Albuterol/Ipratropium 1 puff 03/09/19 09:00 03/09/19 08:05 Combivent Respimat(Nf) INH Not Given QID SUNDAR Protocol Amlodipine Besylate 10 mg 03/09/19 09:00 03/09/19 08:08 Norvasc Tab* PO 10 mg DAILY SUNDAR Administration Atorvastatin Calcium 40 mg 03/09/19 09:00 03/09/19 08:08 Lipitor* PO 40 mg DAILY SUNDAR Administration Fluticasone Propionate 2 spray 03/09/19 09:00 03/09/19 08:09 Flonase Nasal [place] 50mcg* BOTH NARES 2 spray DAILY SUNDAR Administration Heparin Sodium (Porcine) 0 units 03/08/19 23:00 03/08/19 22:33 Heparin Vial(*) IV 4,000 units .PER PROTOCOL SUNDAR Administration Hydralazine HCl 50 mg 03/09/19 09:00 03/09/19 08:08 Apresoline Tab* PO 50 mg TID SUNDAR Administration Heparin Sodium/Dextrose 25,000 units in 500 mls @ 0 mls/hr 03/08/19 22:15 22:31 Heparin Drip 25,000 Units(*) IV 20 mls/hr PER RATE SUNDAR Administration Protocol Per Protocol Isosorbide Mononitrate 60 mg 03/09/19 09:00 03/09/19 08:08 Isosorbide Mononitrate (Nf) PO 60 mg DAILY SUNDAR Administration Protocol Lisinopril 20 mg 03/09/19 09:00 03/09/19 08:08 Prinivil Tab* PO 20 mg DAILY SUNDAR Administration Metoprolol Succinate 12.5 mg 03/09/19 09:00 03/09/19 08:09 Toprol Xl Tab* PO 12.5 mg DAILY SUNDAR Administration Nitroglycerin 0.4 mg 03/08/19 23:56 Nitroglycerin Tab 0.4 Mg* SL Q5M PRN ANGINA HOME MEDS: Atorvastatin* [Lipitor 40 MG*] 40 mg PO DAILY 07/30/13 [History Confirmed ] Lisinopril TAB* [Prinivil TAB*] 20 mg PO DAILY 07/30/13 [History Confirmed 03/08] Warfarin TAB(*) [Coumadin TAB(*)] 6 - 8 mg PO SUTH 07/30/13 [History Confirmed 03/08/19] Warfarin TAB(*) [Coumadin TAB(*)] 8 mg PO MOTUWEFRSA 07/30/13 [History Confirmed 03/08/19] amLODIPine TAB* [Norvasc TAB*] 10 mg PO DAILY 07/30/13 [History Confirmed ] hydrALAZINE TAB* [Apresoline TAB*] 50 mg PO TID 07/30/13 [History Confirmed ] Albuterol/Ipratropium RESP(NF) [Combivent Respimat(NF)] 1 puff INH QID 11/23/18 [History Confirmed 03/08/19] Fluticasone NASAL SPRAY 50MCG* [Flonase NASAL SPRAY 50MCG*] 2 spray BOTH NARES DAILY 11/23/18 [History Confirmed 03/08/19] Isosorbide Mononitrate (NF) 60 mg PO DAILY 11/23/18 [History Confirmed 03/08/19] Nitroglycerin TAB 0.4 MG* 0.4 mg SL Q5M PRN 11/23/18 [History Confirmed 03/08/19 ] Torsemide TAB* [Demadex*] 80 mg PO DAILY 01/23/19 [History Confirmed 03/08/19] Epoetin Nicholas-Epbx * [Retacrit] 10,000 unit SUBCUT TUTH 03/08/19 [History Confirmed 03/08/19] Ferrous Sulfate TAB* 325 mg PO DAILY 03/08/19 [History Confirmed 03/08/19] Metoprolol Succinate XL TAB* [Toprol XL TAB*] 12.5 mg PO DAILY 03/08/19 [ History Confirmed 03/08/19] Vital Signs - 12 hr Temp Pulse Resp BP Pulse Ox 03/09/19 07:15 97.9 F 51 16 131/55 97 03/09/19 07:13 18 03/09/19 03:36 97.7 F 54 16 125/54 97 03/09/19 01:24 97.3 F 59 12 144/59 99 03/09/19 01:04 97.4 F 55 15 135/63 98 03/09/19 00:28 12 03/09/19 00:24 55 11 149/67 99 03/09/19 00:09 58 16 131/63 98 03/09/19 00:00 56 17 98 03/08/19 23:54 56 15 133/64 99 Exam: Older middle age, NAD, walking around the room Clear lungs S1S2 1/6 early peaking SM RUSB, crisp mechanical heart sounds. No rub. LE free of edema, warm. Patient Name: ADRIÁN WALL Medical Record#: [id number] Ordering Physician: Marcelo Chavez MD Acct.#: [id number] : 1950 Age: 68 Sex: M Location: [address] [place] [address] - MEDICAL/TELEMETRY Exam Date: 03/08/192101 ADM Status: ADM IN Order Information: CHEST AP/PORT Accession Number: [id number] CPT: 29055 HISTORY: chest pain COMPARISONS: November 23, 2018 VIEWS: 1: frontal AP view of the chest at 9:10 PM FINDINGS: LINES AND TUBES: None. CARDIOMEDIASTINAL SILHOUETTE: The cardiac silhouette is enlarged. A prosthetic aortic valve is noted. The cardiomediastinal silhouette is otherwise normal for portable technique. PLEURA: The costophrenic angles are sharp. No pleural abnormalities are noted. LUNG PARENCHYMA: The lungs are clear. ABDOMEN: The upper abdomen is clear. There is no subphrenic gas. BONES AND SOFT TISSUES: The patient is status post median sternotomy. IMPRESSION: CARDIOMEGALY. R1F Preliminary Imaging Read R1F <Electronically signed by Saji Buchanan MD in OV> 03/09/1937 Dictated By: Saji Buchanan MD Dictated Date/Time: 03/09/19735 Transcribed Date/Time: 03/09/19735 Copy to: ECG: NSR, LVH, LAFB, mild ST depressoin lateral leads c/w repolarization changes from LVH Laboratory Tests 03/08/19 03/08/19 03/08/19 21:38 21:38 21:38 WBC 7.6 RBC 3.26 L Hgb 9.9 L Hct 28 L MCV 86 MCH 30 MCHC 35 RDW 13 Plt Count 141 L MPV 8.0 Neut % (Auto) 74.3 Lymph % (Auto) 11.4 [place] % (Auto) 9.7 Eos % (Auto) 3.9 Baso % (Auto) 0.7 Absolute Neuts (auto) 5.6 Absolute Lymphs (auto) 0.9 L Absolute Monos (auto) 0.7 Absolute Eos (auto) 0.3 Absolute Basos (auto) 0.1 Absolute Nucleated RBC 0.0 Nucleated RBC % 0.0 INR (Anticoag Therapy) APTT 36.8 D-Dimer, Quantitative 396 H Sodium 138 Potassium 3.7 Chloride 101 Carbon Dioxide 25 Anion Gap 12 H BUN 105 H Creatinine 4.98 H Est GFR ( Amer) 14.1 Est GFR (Non-Af Amer) 11.6 BUN/Creatinine Ratio 21.1 H Glucose 151 H Calcium 8.9 Magnesium 2.3 Total Bilirubin 0.60 AST 19 ALT 14 Alkaline Phosphatase 55 Troponin I 0.33 H* Total Protein 7.2 Albumin 4.2 Globulin 3.0 Albumin/Globulin Ratio 1.4 03/09/19 03/09/19 03/09/19 00:11 03:40 03:49 WBC RBC Hgb Hct MCV MCH MCHC RDW Plt Count MPV Neut % (Auto) Lymph % (Auto) [place] % (Auto) Eos % (Auto) Baso % (Auto) Absolute Neuts (auto) Absolute Lymphs (auto) Absolute Monos (auto) Absolute Eos (auto) Absolute Basos (auto) Absolute Nucleated RBC Nucleated RBC % INR (Anticoag Therapy) 1.94 H APTT 82.6 H D-Dimer, Quantitative Sodium 138 Potassium 4.0 Chloride 103 Carbon Dioxide 24 Anion Gap 11 BUN 100 H Creatinine 5.03 H Est GFR ( Amer) 13.9 Est GFR (Non-Af Amer) 11.5 BUN/Creatinine Ratio 19.9 Glucose 111 H Calcium 8.6 Magnesium Total Bilirubin AST ALT Alkaline Phosphatase Troponin I 0.36 H* 0.24 H* Total Protein Albumin Globulin Albumin/Globulin Ratio 03/09/19 03/09/19 03/09/19 03:49 07:44 09:44 WBC 7.0 RBC 2.98 L Hgb 8.8 L Hct 26 L MCV 88 MCH 30 MCHC 34 RDW 14 Plt Count 130 L MPV 8.0 Neut % (Auto) 86.2 Lymph % (Auto) 5.6 [place] % (Auto) 7.1 Eos % (Auto) 0.6 Baso % (Auto) 0.5 Absolute Neuts (auto) 6.1 Absolute Lymphs (auto) 0.4 L Absolute Monos (auto) 0.5 Absolute Eos (auto) 0.0 Absolute Basos (auto) 0.0 Absolute Nucleated RBC 0.0 Nucleated RBC % 0.1 INR (Anticoag Therapy) APTT 80.9 H 78.7 H D-Dimer, Quantitative Sodium Potassium Chloride Carbon Dioxide Anion Gap BUN Creatinine Est GFR ( Amer) Est GFR (Non-Af Amer) BUN/Creatinine Ratio Glucose Calcium Magnesium Total Bilirubin AST ALT Alkaline Phosphatase Troponin I Total Protein Albumin Globulin Albumin/Globulin Ratio A/P 68 yo with distant CABG, AVR with rapidly escalationg CKD. 2 episodes of CP with mild bump in troponins. CP different from prior pre CABG angina, but concerning for angina. Stress test not available to me or [facility]. Awaiting fax from [facility]. Discussed transfer for Cath to [facility], they declined at this time as pt wants to avoid HD, high risk, they feel could be a uremic presentation and at this juncture would not cath him. Cardiac plan: Check echo, check ESR, update lipids. Continue with medical management. Get Stress test. I don't appreciate that this is CHF (diastolic), but he is at risk for this, pizza could have been a factor even home made, used canned tomatoes. Defer anemia/CKD to hospitalists. Followed by Dr Whipple, nephrology [facility] [place] as out patient.
[2019-03-09] MEDS: Nitroglycerin TAB 0.4 MG* 0.4 MG TAB SL PRN ×2 (13:35→14:50)
[2019-03-09] MEDS ORDERED: Morphine INJ* 2 MG/ML 1 ML SYRINGE (TWO MG - NEW SYRINGE VERSION) IV ONE (13:38)
[2019-03-09] MEDS ORDERED: Torsemide TAB* 20 MG PO SCH (14:00)
[2019-03-09 14:36] LABS: Troponin I 0.24 ng/mL (<0.03)
[2019-03-09] MEDS: nitroGLYCERIN DRIP* 25,000 MCG/250 ML BTL IV ONE ×3 (14:52→15:59)
[2019-03-09] MEDS ORDERED: nitroGLYCERIN DRIP* 25,000 MCG/250 ML BTL IV SCH (15:00)
--- NOTE | 2019-03-09 15:46 | PN ---
Cardiology Progress Note Date of Service: 03/09/19 - CC: CP The patient has had 2 additional eipsodes of CP, respond to NTG. ?Positional component. Denies pleuritic component. Sodium 138 mmol/L (135-145) 03/09/19 03:40 Potassium 4.0 mmol/L (3.5-5.0) 03/09/19 03:40 BUN 100 mg/dL (6-24) H 03/09/19 03:40 Creatinine 5.03 mg/dL (0.67-1.17) H 03/09/19 03:40 Calcium 8.6 mg/dL (8.6-10.3) 03/09/19 03:40 Magnesium 2.3 mg/dL (1.9-2.7) 03/08/19 21:38 AST 19 U/L (13-39) 03/08/19 21:38 ALT 14 U/L (7-52) 03/08/19 21:38 Trops: .33,0.36, 0.24, 0.24 ESR still pending. ECG's: NSR, LVH, LAFB, ST changes C/w LVH. No change w/CP. CXR: No evidence of effusion, increased heart size. Stress test in [place]: Resting EF 41%, post stress 35%, resting inferior defect, mild worsens significantly post stress. No images available to review personally. Limited echo done today: Normal wall motion and contractility in all regions, LVH, no pericardial effusion, trace valve leaks, aorta w/o gross pathology. A/P 68 yo distant mechanical AVR + 4 V CABG, stage 5 CKD secondary anemia with neck , back axillary pain and mild bump in troponins, no ECG changes. Troponins: Differential of CAD, supported by stress test, clearing with NTG but no ECG changes and CP different from angina pre CABG. Area described is inferior wall and this region can be falsley positive due to gut artifact, I don't have images to review personally. Radicular pain could present like this. Pleuroparicardial precess from uremia might present like this, but no clear positional or pleuritic history. No effusion on CXR or echo. Await ESR. PE unlikely as pt active, RV OK on echo. Dissection of the aorta could present like this, no obvious pathology on werner. echo. Currently CP free on NTG gtt. 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 We can look for radiculopathy and dissection with CT I- w/o significant risk to the patient. Discussion with Curtis on transfer: Cardiology would consider cath only if pt now willing to under go HD. I discussed with the patient the risk of dye on kidneys and that likely permanent HD would be needed not just temporary. Pt understanding and amenable to cath and 2ary HD.
[2019-03-09 17:29] LABS: Troponin I 0.19 ng/mL (<0.03)
[2019-03-09] MEDS ORDERED: Morphine INJ* 2 MG/ML 1 ML SYRINGE (TWO MG - NEW SYRINGE VERSION) IV PRN (17:31)
--- NOTE | 2019-03-09 18:09 | PN ---
Date of Service: 03/09/19 Critical Care Services: Patient transferred from [address] [place] [address] for ACS. Chest pain 9/10 at the time of exam/transfer. Dr. Borden at bedside for ECHO after transfer to ICU. Patient states pain is left sided and radiates to jaw and shoulder and between his shoulder blades. Was given one dose of NTG SL and morphine on the floor, started on NTG drip at 5. Pain is currently relieved. Denies any other symptoms , no n/v, no headache, no diaphoresis, no fatigue or weakness. Chest pain is described as sharp in nature. Vital Signs: Temp Pulse Resp BP SpO2 FiO2 98.3 F 68 27 152/108 98 03/09/19 15:04 03/09/19 17:15 03/09/19 17:35 03/09/19 17:15 03/09/19 17:15 Physical Exam: Gen: Alert, no acute distress HEENT: Atraumatic, normocephalic Lungs: clear bilaterally Cardiac: +S1S2, systolic 3/6 murmur, regular Abdomen: Soft, non tender, pos BS Extremities: No clubbing or edema, cap refill <2sec Neuro: A&Ox3, no focalities Fluid Balance (Past 24 Hours): Intake & Output 03/07/19 03/08/19 03/09/19 03/10/19 06:59 06:59 06:59 06:59 Intake Total 93.2 Output Total 450 Balance 93.2 -450 Weight 208 lb 9.6 oz Intake: Heparin 93.2 Oral 0 Output: Urine 450 Labs: Laboratory Results - last 24 hr 03/08/19 03/08/19 03/08/19 21:38 21:38 21:38 WBC 7.6 RBC 3.26 L Hgb 9.9 L Hct 28 L MCV 86 MCH 30 MCHC 35 RDW 13 Plt Count 141 L MPV 8.0 Neut % (Auto) 74.3 Lymph % (Auto) 11.4 [place] % (Auto) 9.7 Eos % (Auto) 3.9 Baso % (Auto) 0.7 Absolute Neuts (auto) 5.6 Absolute Lymphs (auto) 0.9 L Absolute Monos (auto) 0.7 Absolute Eos (auto) 0.3 Absolute Basos (auto) 0.1 Absolute Nucleated RBC 0.0 Nucleated RBC % 0.0 ESR INR (Anticoag Therapy) APTT 36.8 D-Dimer, Quantitative 396 H Sodium 138 Potassium 3.7 Chloride 101 Carbon Dioxide 25 Anion Gap 12 H BUN 105 H Creatinine 4.98 H Est GFR ( Amer) 14.1 Est GFR (Non-Af Amer) 11.6 BUN/Creatinine Ratio 21.1 H Glucose 151 H Calcium 8.9 Magnesium 2.3 Total Bilirubin 0.60 AST 19 ALT 14 Alkaline Phosphatase 55 Troponin I 0.33 H* Total Protein 7.2 Albumin 4.2 Globulin 3.0 Albumin/Globulin Ratio 1.4 03/09/19 03/09/19 03/09/19 00:11 03:40 03:49 WBC RBC Hgb Hct MCV MCH MCHC RDW Plt Count MPV Neut % (Auto) Lymph % (Auto) [place] % (Auto) Eos % (Auto) Baso % (Auto) Absolute Neuts (auto) Absolute Lymphs (auto) Absolute Monos (auto) Absolute Eos (auto) Absolute Basos (auto) Absolute Nucleated RBC Nucleated RBC % ESR INR (Anticoag Therapy) 1.94 H APTT 82.6 H D-Dimer, Quantitative Sodium 138 Potassium 4.0 Chloride 103 Carbon Dioxide 24 Anion Gap 11 BUN 100 H Creatinine 5.03 H Est GFR ( Amer) 13.9 Est GFR (Non-Af Amer) 11.5 BUN/Creatinine Ratio 19.9 Glucose 111 H Calcium 8.6 Magnesium Total Bilirubin AST ALT Alkaline Phosphatase Troponin I 0.36 H* 0.24 H* Total Protein Albumin Globulin Albumin/Globulin Ratio 03/09/19 03/09/19 03/09/19 03:49 07:44 09:44 WBC 7.0 RBC 2.98 L Hgb 8.8 L Hct 26 L MCV 88 MCH 30 MCHC 34 RDW 14 Plt Count 130 L MPV 8.0 Neut % (Auto) 86.2 Lymph % (Auto) 5.6 [place] % (Auto) 7.1 Eos % (Auto) 0.6 Baso % (Auto) 0.5 Absolute Neuts (auto) 6.1 Absolute Lymphs (auto) 0.4 L Absolute Monos (auto) 0.5 Absolute Eos (auto) 0.0 Absolute Basos (auto) 0.0 Absolute Nucleated RBC 0.0 Nucleated RBC % 0.1 ESR INR (Anticoag Therapy) APTT 80.9 H 78.7 H D-Dimer, Quantitative Sodium Potassium Chloride Carbon Dioxide Anion Gap BUN Creatinine Est GFR ( Amer) Est GFR (Non-Af Amer) BUN/Creatinine Ratio Glucose Calcium Magnesium Total Bilirubin AST ALT Alkaline Phosphatase Troponin I Total Protein Albumin Globulin Albumin/Globulin Ratio 03/09/19 03/09/19 03/09/19 13:54 16:05 16:05 WBC RBC Hgb Hct MCV MCH MCHC RDW Plt Count MPV Neut % (Auto) Lymph % (Auto) [place] % (Auto) Eos % (Auto) Baso % (Auto) Absolute Neuts (auto) Absolute Lymphs (auto) Absolute Monos (auto) Absolute Eos (auto) Absolute Basos (auto) Absolute Nucleated RBC Nucleated RBC % ESR 37 H INR (Anticoag Therapy) APTT 68.1 H D-Dimer, Quantitative Sodium Potassium Chloride Carbon Dioxide Anion Gap BUN Creatinine Est GFR ( Amer) Est GFR (Non-Af Amer) BUN/Creatinine Ratio Glucose Calcium Magnesium Total Bilirubin AST ALT Alkaline Phosphatase Troponin I 0.24 H* Total Protein Albumin Globulin Albumin/Globulin Ratio 03/09/19 16:55 WBC RBC Hgb Hct MCV MCH MCHC RDW Plt Count MPV Neut % (Auto) Lymph % (Auto) [place] % (Auto) Eos % (Auto) Baso % (Auto) Absolute Neuts (auto) Absolute Lymphs (auto) Absolute Monos (auto) Absolute Eos (auto) Absolute Basos (auto) Absolute Nucleated RBC Nucleated RBC % ESR INR (Anticoag Therapy) APTT D-Dimer, Quantitative Sodium Potassium Chloride Carbon Dioxide Anion Gap BUN Creatinine Est GFR ( Amer) Est GFR (Non-Af Amer) BUN/Creatinine Ratio Glucose Calcium Magnesium Total Bilirubin AST ALT Alkaline Phosphatase Troponin I 0.19 H* Total Protein Albumin Globulin Albumin/Globulin Ratio Studies: Patient Name: ADRIÁN WALL Medical Record#: [id number] Ordering Physician: Marcelo Chavez MD Acct.#: [id number] : 1950 Age: 68 Sex: M Location: [address] [place] [address]/TELEMETRY Exam Date: 03/08/192101 ADM Status: ADM IN Order Information: CHEST AP/PORT Accession Number: [id number] CPT: 80814 HISTORY: chest pain COMPARISONS: November 23, 2018 VIEWS: 1: frontal AP view of the chest at 9:10 PM FINDINGS: LINES AND TUBES: None. CARDIOMEDIASTINAL SILHOUETTE: The cardiac silhouette is enlarged. A prosthetic aortic valve is noted. The cardiomediastinal silhouette is otherwise normal for portable technique. PLEURA: The costophrenic angles are sharp. No pleural abnormalities are noted. LUNG PARENCHYMA: The lungs are clear. ABDOMEN: The upper abdomen is clear. There is no subphrenic gas. BONES AND SOFT TISSUES: The patient is status post median sternotomy. IMPRESSION: CARDIOMEGALY. R1F Preliminary Imaging Read R1F Nutrition: Heart healthy Impression: This is a 68 year old male with known CAD, s/p remote CABG, AVR, aortic aneurysm repair, CKD stage 5 not on dialysis that presented to the ED with c/o chest pain, transferred to ICU for NTG drip, r/o ACS: Diagnoses: 1. Chest Pain, r/o ACS 2. Stage 5 CKD 3. Hx of Aortic Aneurysm with Repair 4. Anemia, AOCD 5. HLP Plan: Neuro - A&O, no active issues CV - NTG drip to be titrated to pain, BP stable - Initiate EKG with any increase in pain before increasing NTG drip rate to assess for ischemic changes - Heparin drip, follow PTTs - Follow troponins, peaked at 0.36, trending down - Sed rate is 0.37, not remarkably high to indicate pericarditis - Will obtain CT chest no contrast and assess aorta, will also obtain CT cervical spine, as there may be a musculoskeletal component that should be ruled out - Records from [facility] in [place] this past Monday show perfusion abnormality in the mid to distal inferior wall at rest with worsens on stress images with moderate to severe ischemia in the inferior, lateral and apex. Also noted decreased EF at 36%. However, bedside ECHO with Dr. Borden shows preserved EF of 50-55%. Discrepancy is unclear. - [facility] initially contracted for possible transfer for cardiac cath, as we are unable to provide emergent HD in the event of contrast induced nephropathy and patient is being prepped for PD in the community, was trying to avoid HD; however, patient has agreed to hemodialysis in the event of renal failure post cath if necessary - Continue amlodipine, statin, BB, hold imdur while on NTG drip - Not on ASA as outpatient, will start low dose in AM GI - No current issues - Heart healthy diet Renal - BUN/creat 100/5.03 on today's labs, sees Dr. Whipple outpatient - Renal US in November 2018 indicates medical renal disease - Continue to follow lytes, potassium is 4.0, check phos in AM Endocrine - Slightly elevated blood glucose, no hx of diabetes, will obtain A1c ID - No fever or white count, non toxic appearing HEME - AOCD likely 2/2 renal disease, H&H stable continue to monitor CBC DVT Prophy - heparin drip Full Code Disposition: At this time, patient will not be transferred. In the event that the patient decompensates, eg, troponins rise, renal failure worsens or there are acute EKG changes, patient will have to be transferred to higher level of care with open heart and emergent dialysis capabilities. Critical Care Time: 55 minutes
[2019-03-09] MEDS ORDERED: Morphine INJ* 4 MG/ML 1 ML SYRINGE (NEW SYRINGE VERSION) IV PRN (19:09)
--- NOTE | 2019-03-09 19:49 | CARD ---
CC: Dr. Farmer; Dr. Whipple PRELIMINARY LIMITED ECHOCARDIOGRAM: DATE OF STUDY: 03/09/19 NEPHROLOGY: Dr. Whipple. PREPROCEDURE INDICATION: Chest pain, stage 5 renal disease, distant bypass surgery and aortic valve replacement. PERFORMING PROVIDER: Dr. Sabrina Borden. FINDINGS: 1. The left ventricle appears to have [id number] hypertrophy with normal wall motion and contractility in all regions with a visually estimated ejection fraction of 55%. 2. The right ventricle shows normal contractility. 3. Pericardial space has some epicardial fat. No free flowing fluid. No evidence of effusion on parasternal views, apical views or subcostal views. 4. The mitral valve leaflets are thin with good excursion, trace mitral insufficiency and color Doppler. Pulse and continuous wave Doppler not done. 5. Aortic valve not optimally seen shadowing consistent with mechanical heart valve. [id number] aortic insufficiency on color Doppler on long-axis view. 6. Pulse and continuous wave Doppler studies not done through the valve. 7. Pulmonic valve leaflets suboptimally seen on short-axis view. No evidence of insufficiency or stenosis on color Doppler. Pulse and continuous wave Doppler not done. 8. Tricuspid valve leaflets are thin with good excursion. [id number] tricuspid insufficiency on color Doppler. PA pressures not obtained. 9. Ascending aorta appears echo bright (s/p aortic rott graft). No evidence of dissection based on 2D imaging, color Doppler. 10. Aortic arch and descending aorta visualized from the suprasternal notch with normal flow pattern on color Doppler. CONCLUSIONS: 1. Normal left and right ventricular wall motion and systolic function. 2. No evidence of pericardial effusion, pericardial fat-pad incidentally noted. 3. The patient is status post mechanical aortic valve replacement with trace insufficiency. 4. Trace mitral and tricuspid insufficiency. 5. No evidence of aortic pathology. [id number]/[facility] #: [id number] [facility]
--- NOTE | 2019-03-09 20:46 | CONS ---
CC: Dr. Farmer; Dr. Chino Pearl; Hospitalist Service * CONSULTATION REPORT: DATE OF CONSULT: 03/09/19 REASON FOR CONSULT: Chest pain and elevated troponins. CHIEF COMPLAINT: Chest pain. HISTORY OF PRESENT ILLNESS: Mr. Brown is a 68-year-old gentleman with an extensive cardiac history, followed by Dr. Chino Pearl. The patient additionally has stage 5 chronic kidney disease, is being seen by Nephrology at [facility] and undergoing steps for hemodialysis, but the patient is trying to push this off as long as possible as he has overall been feeling well. The patient was in his usual state of health, underwent a stress test at [place] last Monday, 6 days ago. States he did well through the stress portion , but when he was lying down to go under the camera developed left posterior neck pain. He has had similar pain, but not quite as bad that he always thought was musculoskeletal. This eventually resolved. He declined medical care for this. He then did well until yesterday, 03/08/19. He was watching TV at night somewhat reclined and developed severe pain in the left posterior neck that radiated down to the scapula around to the axilla in the front of the chest. With this, the patient was shaky. His told him he turned baron. He was dizzy, had a near syncopal episode, mild nausea, no vomiting, and he was short of breath. The patient received an aspirin and sublingual nitroglycerin in the ambulance and the pain had abated. Since admission, the patient has had 2 similar episodes and on the floor given nitroglycerin and morphine with clearing of the symptoms. The patient denies any pleuritic component to it. There may be a positional component as the first 2 episodes occurred reclining and in the hospital, he has been in a hospital bed. There does not appear to be a meal relationship and there does not appear to be any relationship with activity. These are occurring at rest. PAST MEDICAL HISTORY: The patient has a past medical history of: 1. Aortic valve replacement for severe aortic insufficiency in 2007, with an ejection fraction 35% to 40% at that time; history of ascending aortic aneurysm , status post aortic root replacement in 2007. He also had 2-vessel coronary disease and underwent bypass surgery with a LUCIO to the LAD, saphenous vein graft to the diagonal, saphenous vein graft to the posterior descending. The valve replacement is #27 [employer] mechanical aortic valve. 2. Paroxysmal AFib, postop, 2007. 3. History of GI bleeding in the past leading to angina. 4. Cardiac cath in 2010: Patent grafts, disease in the diagonal and proximal right not felt to be significant. 5. Cardiac catheterization in 2016: Patent vein graft to the right PD, patent LUCIO to the LAD, patent saphenous vein graft to the diagonal, and medical management was recommended. 6. Nuclear stress test in May 2016: Apical inferior hypokinesis, reversible ischemia at the apical, mid and basal anterolateral segments. 7. Echocardiogram in August 2018: Moderate left ventricular hypertrophy, ejection fraction 55% to 60%, normal mechanical aortic valve prosthesis function , no pericardial effusion. 8. Hypertension. 9. Dyslipidemia. 10. Nephrolithiasis. 11. Chronic kidney disease. 12. Peptic ulcer disease. 13. Chronic anemia. PAST SURGICAL HISTORY: Includes: 1. In 2006, hernia repair. 2. In 2007, aortic valve replacement, aortic root graft for thoracic aneurysm, and 3-vessel bypass surgery. 3. In 2009, cholecystectomy. MEDICATIONS: Current inpatient medications include: 1. Albuterol/ipratropium (Combivent) 1 puff 4 times daily. 2. Norvasc 10 mg a day. 3. Lipitor 40 mg a day. 4. Fluticasone nasal spray 2 sprays both nares. 5. Heparin drip. 6. Hydralazine 50 mg t.i.d. 7. Isosorbide 60 mg a day. 8. Prinivil 20 mg a day. 9. Toprol 12.5 mg a day. 10. Morphine p.r.n. 11. Nitroglycerin drip replacing sublingual nitroglycerin. 12. He had Demadex at 2 p.m. 80 mg x1 today. ALLERGIES: Include PLASMA with anaphylactic shock. FAMILY HISTORY: Positive for his mother having hypertension, diabetes, heart disease among other family history. Father had alcohol-related disease. SOCIAL HISTORY: Former smoker, quit in 1994. Uses edible marijuana. No history of cocaine use or alcohol abuse. REVIEW OF SYSTEMS: Positive for the edible CBD. He denies chronic orthopnea or PND. Tries to eat a low-salt diet. Denies exercise intolerance recently. Denies change in bowel or bladder habits, but admits that he has some constipation issues chronically. No recent fevers, chills, sweats. All other 14-point review of systems was negative. PHYSICAL EXAM: The patient is 5 feet 11 inches, weighs 208 pounds with a BMI of 25. Vital Signs: On arrival to the emergency room, blood pressure 152/80, pulse was 64, respiratory rate 14, oxygen saturation 99% on room air, and he was afebrile. At the time of my exam this morning, blood pressure 132/52, pulse was 50 to 60, respiratory rate 16, remained afebrile, oxygen saturation 97 % on room air. General Appearance: Tall gentleman, a little out of shape, but well nourished, in no acute distress. Psychologically, pleasant. Neurologically, awake, alert, and oriented to person, place, and time. Grossly normal sensory and motor function in the upper and lower extremities and gait in the room was normal. Skin: Warm, dry without cyanosis or rashes. HEENT: Mucous membranes were moist. Neck without appreciable increase in JVP. Strong carotid pulses with mechanical heart sounds being referred. No obvious bruits. Breath sounds clear after coughing. No wheezing, rales, or rhonchi. No rubs. Coronary: S1, S2, regular. [place]cl[place] mechanical heart sounds as expected and a 1/6 early-peaking systolic murmur heard in the right upper sternal border. Abdomen: Active bowel sounds. Soft, nontender. No appreciable hepatomegaly. No pulsatile liver. Lower extremities were free of edema and warm. DIAGNOSTIC STUDIES/LAB DATA: White count 7, hematocrit 26, platelets 130, sed rate 37. INR 1.94, PTT 79 (on heparin). Sodium 138, potassium 4.0, chloride 103 , bicarb 24, glucose 111, BUN 100, creatinine 5.03. AST 19, ALT 14. Troponin # 1 is 0.33, #2 is 0.36, #3 is 0.24, #4 is 0.24. Chest x-ray from 03/08/19 showed cardiomegaly. No evidence of acute pulmonary process. EKG on arrival shows normal sinus rhythm; 60 beats per minute with a left axis deviation; left ventricular hypertrophy; some mild ST depression and inverted T waves in the lateral leads, I, aVL, V5 and V6; J point type ST elevation in the inferior leads, II, III and aVF, but stable when compared with baseline EKGs on check serially. Limited focus echo done at the bedside today showed: 1. Left ventricular hypertrophy with normal wall motion of the left ventricle and normal systolic function with an ejection fraction estimated at 55%. 2. Normal right ventricular function. No significant pericardial effusion. Small pericardial fat pad. Ascending aorta was echo bright. Aortic arch and descending aorta had normal flow. No evidence of dissection. Trace mitral and tricuspid insufficiency. Stress report from [facility] performed on 03/04/19 cites the reason for the stress test was preoperative risk assessment. This test was a chemical (Lexiscan) stress test. ECG is not available, but report describes mild perfusion abnormality in the mid to distal inferior wall at rest, markedly worsened on the stress images with [id number] ischemia in the inferior wall, lateral wall and apex. Gated portion showed hypokinesis in the inferolateral wall, marked LV dilatation, end-systolic volume of 147 cc, end- diastolic volume 231 cc, resting ejection fraction 47%, post stress ejection fraction 36%, TID elevated at 1.28. I believe attenuation correction unable to be performed because of motion abnormality. It is noted that chest pain occurred at the end of the imaging. ER workup was recommended, but the patient declined. IMPRESSION AND PLAN: In summary, Dominic Brown is a very nice 68-year-old gentleman with a history of aortic insufficiency, coronary artery disease and ascending aortic aneurysm, who underwent open heart surgery in 2007 with 3- vessel bypass, mechanical aortic valve replacement and aortic root graft replacement. The patient has chronic kidney disease, now stage 5, undergoing evaluation for hemodialysis with Dr. Whipple in [facility] and he has been evaluated at [facility]. The patient developed chest pain while undergoing preoperative stress test and it has recurred yesterday and today with mild elevation in troponins. He has 2 abnormal stress tests, one at [facility] a few years ago and one this week. In terms of the patient's chest pain and troponins, he is at high risk for progression in his [place] atherosclerotic heart disease and initially my recommendation was to transfer to [facility] to consider heart catheterization. Initial discussions did not result in transfer. At that point, we did not have the results of the stress test and ECGs were stable and the patient at that time had resolution of his chest pain. After recurrent chest pain episodes and results of his stress test became available, we rediscussed with [facility], who is willing to accept the patient in transfer as long as he is willing to undergo hemodialysis as any IV dye would likely result in the need for hemodialysis. [facility] was interested in the patient. If regular time study engineer comments about the potential for uremia and chest pain and optimization for his kidney disease , it is my understanding that on the weekend, we cannot initiate emergent hemodialysis at [facility]. The differential for the chest pain would include ischemia, large-vessel coronary artery disease, small-vessel disease, demand ischemia based on anemia, uremia, and other stressors. It is possible that pleural/pericardial process could lead to this, but we do not see this in evidence on chest x-ray or echo and his sed rate is only minimally elevated when checked, so I think that there is a low possibility of this. It is possible the pain is radiculopathy, the current pain is different than his initial angina which is anterior left-sided chest pain. The differential would include destabilization of the anastomosis of the root graft and the aorta and the echo done was suboptimal to evaluate. My current recommendation is still to transfer to a center with higher capability than we have here, the ability to cath with backup laboratory phlebotomist and dialysis; at our freestanding laboratory phlebotomist, he is not an appropriate cath candidate here. In the interim, I recommend getting a CT scan without contrast to evaluate the neck and aorta. We have moved him to the intensive care unit on a nitroglycerin drip. I am updating lipids to ensure his statin is optimally dosed. For now, we will continue him on his heparin drip. Further recommendations will be made pending his clinical course and response to the above measures. If we are unable to find a noncardiac etiology to his pain, I think it is safe to transfer to [facility] for additional workup, center of higher level of care which also has his regular cardiovascular team. ADDENDUM: CT SHOWED EXTENSIVE CERVICAL SPINE STENOSIS. NO EVIDENCE OF AORTIC PROBLEMS WITH CT SCAN (NO CONTRAST). PAIN NOW FELT TO BE DUE TO RADICULOPATHY. CAD, ABNORMAL STRESS TEST AND ELEVATED TROPONINS WITH STRESS (PAIN) FOR MEDICAL MANAGEMENT NOW, F/U WITH THE [facility]ENTS [facility] DIRECTOR DR CHINO PEARL. [id number]/[facility] #: [id number] [facility]
[2019-03-10 05:26] LABS: ABS Eosinophils 0.3 10^3/ul (0-0.6); ABS Lymphocytes 0.8 10^3/ul (1.0-4.8); ABS Monocytes 0.7 10^3/ul (0-0.8); Hematocrit 26 % (42-52); Hemoglobin 9.2 g/dL (14.0-18.0); Lymphocyte % 11.1 %; Mean Corpuscular HGB Conc 35 g/dL (31-36); Mean Corpuscular Hemoglobin 30 pg (27-31); Mean Corpuscular Volume 87 fL (80-94); Platelet Count 132 10^3/uL (150-450); Red Blood Count 3.03 10^6 /uL (4.18-5.48); Red Cell Distribution Width 13 % (10-15); White Blood Count 6.8 10^3/uL (3.5-10.8)
[2019-03-10 05:43] LABS: EGFR African American 15.3 (>60); EGFR Non-African American 12.6 (>60); HDL Cholesterol 23.8 mg/dL
[2019-03-10] MEDS: Heparin DRIP 25,000 UNITS(*) 25,000 UNITS/500 ML BAG IV SCH (06:23)
[2019-03-10] MEDS: hydrALAZINE TAB* 25 MG PO SCH ×3 (07:45→22:49)
[2019-03-10] MEDS: amLODIPine TAB* 5 MG PO SCH (07:45)
[2019-03-10] MEDS: Metoprolol Succinate XL TAB* 25 MG PO SCH (07:45)
[2019-03-10] MEDS: Atorvastatin* 40 MG TAB PO SCH (07:45)
[2019-03-10] MEDS: Lisinopril TAB* 10 MG PO SCH (07:45)
[2019-03-10] MEDS ORDERED: Perflutren Lipid Microsphere* 3 ML VIAL ONE (08:11)
[2019-03-10] MEDS: Fluticasone NASAL SPRAY 50MCG* 16 gm SPRAY BTL BOTH NARES SCH (09:12)
[2019-03-10] MEDS: Albuterol/Ipratropium RESP(NF) MDI (Combivent Respimat) INH SCH ×4 (09:13→21:36)
[2019-03-10] MEDS: Aspirin EC TAB* 81 MG TAB.EC PO SCH (10:34)
[2019-03-10] MEDS: Torsemide TAB* 20 MG PO SCH (10:34)
[2019-03-10] MEDS ORDERED: Cyclobenzaprine TAB* 10 MG PO PRN (11:30)
--- NOTE | 2019-03-10 11:39 | PN ---
Date of Service: 03/10/19 Critical Care Services: Patient seen and examined. Off NTG drip overnight. Chest and left neck pain resolved. Denies any other anginal equivalents. Patient complaining of some nausea and constipation today only. Otherwise ambulatory, afebrile, no bleeding , no SOB. Vital Signs: Temp Pulse Resp BP SpO2 FiO2 97.8 F 58 18 142/64 96 03/10/19 07:23 03/10/19 10:34 03/10/19 10:34 03/10/19 10:34 03/10/19 10:34 Physical Exam: Gen: Alert, well appearing, NAD HEENT: Atraumatic normocephalic Lungs: Clear bilaterally to auscultation Cardiac: Abdomen:+s1s2, rate and rhythm regular, valve click noted Extremities: no edema, no clubbing Neuro: A&Ox3, no focal deficits Fluid Balance (Past 24 Hours): Intake & Output 03/08/19 03/09/19 03/10/19 03/11/19 06:59 06:59 06:59 06:59 Intake Total 93.2 794 480 Output Total 1575 875 Balance 93.2 -781 -395 Weight 208 lb 9.6 oz 208 lb 12 oz Intake: Medicated IV 160 CC - Nitroglycerine/ 160 Tridil Heparin 93.2 214 Oral 0 420 480 Output: Urine 1575 875 Labs: Laboratory Results - last 24 hr 03/09/19 03/09/19 03/09/19 13:54 16:05 16:05 WBC RBC Hgb Hct MCV MCH MCHC RDW Plt Count MPV Neut % (Auto) Lymph % (Auto) [place] % (Auto) Eos % (Auto) Baso % (Auto) Absolute Neuts (auto) Absolute Lymphs (auto) Absolute Monos (auto) Absolute Eos (auto) Absolute Basos (auto) Absolute Nucleated RBC Nucleated RBC % ESR 37 H APTT 68.1 H BUN Creatinine Est GFR ( Amer) Est GFR (Non-Af Amer) Troponin I 0.24 H* Triglycerides Cholesterol LDL Cholesterol HDL Cholesterol 03/09/19 03/09/19 03/10/19 16:55 19:46 05:14 WBC 6.8 RBC 3.03 L Hgb 9.2 L Hct 26 L MCV 87 MCH 30 MCHC 35 RDW 13 Plt Count 132 L MPV 8.0 Neut % (Auto) 73.0 Lymph % (Auto) 11.1 [place] % (Auto) 10.4 Eos % (Auto) 5.0 Baso % (Auto) 0.5 Absolute Neuts (auto) 5.0 Absolute Lymphs (auto) 0.8 L Absolute Monos (auto) 0.7 Absolute Eos (auto) 0.3 Absolute Basos (auto) 0.0 Absolute Nucleated RBC 0.0 Nucleated RBC % 0.0 ESR APTT BUN Creatinine Est GFR ( Amer) Est GFR (Non-Af Amer) Troponin I 0.19 H* 0.20 H* Triglycerides Cholesterol LDL Cholesterol HDL Cholesterol 03/10/19 03/10/19 05:14 05:14 WBC RBC Hgb Hct MCV MCH MCHC RDW Plt Count MPV Neut % (Auto) Lymph % (Auto) [place] % (Auto) Eos % (Auto) Baso % (Auto) Absolute Neuts (auto) Absolute Lymphs (auto) Absolute Monos (auto) Absolute Eos (auto) Absolute Basos (auto) Absolute Nucleated RBC Nucleated RBC % ESR APTT 64.1 H BUN 91 H Creatinine 4.63 H Est GFR ( Amer) 15.3 Est GFR (Non-Af Amer) 12.6 Troponin I Triglycerides 174 Cholesterol 82 LDL Cholesterol 23 HDL Cholesterol 23.8 Studies: Patient Name: ADRIÁN WALL Medical Record#: [id number] Ordering Physician: Monica Velez NP Acct.#: [id number] : 1950 Age: 68 Sex: M Location: INTENSIVE CARE UNIT Exam Date: 03/09/191757 ADM Status: ADM IN Order Information: CT SPINE CERVICAL W/O Accession Number: [id number] CPT: 43949 PROCEDURE INFORMATION: Exam: CT Cervical Spine Without Contrast Exam date and time: 03/09/2019 6:23 PM Age: 68 years old Clinical indication: Other: Pain TECHNIQUE: Imaging protocol: Computed tomography images of the cervical spine without contrast. Radiation optimization: All CT scans at this facility use at least one of these dose optimization techniques: automated exposure control; mA and/or kV adjustment per patient size (includes targeted exams where dose is matched to clinical indication); or iterative reconstruction. COMPARISON: No relevant prior studies available. FINDINGS: Vertebrae: No fracture or subluxation. Severe degenerative change throughout the cervical spine. Central canal narrowing is most pronounced at C4-C5 contributed to by I peripheral disc osteophyte complex and severe facet arthropathy with moderate to severe narrowing here. There are moderate central canal stenosis elsewhere. Discs/Spinal canal/Neural foramina: Multilevel primarily osteophytic neural foraminal stenoses including severe stenosis C3-C4 on the right, C4-C5 on the left, and C7-T1 on the left. Moderate stenoses elsewhere. Soft tissues: Unremarkable. Lungs: Lung apices are normal. Vasculature: Atherosclerosis. IMPRESSION: 1. No fracture or subluxation. 2. Severe degenerative change throughout the cervical spine. Central canal narrowing is most pronounced at C4-C5 contributed to by peripheral disc osteophyte complex and severe facet arthropathy with moderate to severe narrowing here. There are moderate central canal stenosis elsewhere. 3. Multilevel primarily osteophytic neural foraminal stenoses including severe stenosis C3-C4 on the right, C4-C5 on the left, and C7-T1 on the left. Moderate stenoses elsewhere. Dictated and Authenticated by: Lisandro Kitchen MD 03/09/2019 7:28 PM Eastern Time ([place] and [place]) To contact [facility] with a general question: Operations Center - [phone] For direct physician to physician contact: Physician Hotline - [phone] [facility] [place] ([facility] Facility ID #[id number]) Patient Name: ADRIÁN WALL Medical Record#: [id number] Ordering Physician: Monica Velez NP Acct.#: [id number] : 1950 Age: 68 Sex: M Location: INTENSIVE CARE UNIT Exam Date: 03/09/191621 ADM Status: ADM IN Order Information: CT CHEST W/O Accession Number: [id number] CPT: 40280 PROCEDURE INFORMATION: Exam: CT Chest Without Contrast Exam date and time: 03/09/2019 6:27 PM Age: 68 years old Clinical indication: Other: Eval aortic aneurysm repair/chest pain; Prior surgery; Patient HX: Physician looking at jxn between carotids and aorta, looking for possible leaks in repair. Also requested the thin images be sent. TECHNIQUE: Imaging protocol: Computed tomography of the chest without contrast. Radiation optimization: All CT scans at this facility use at least one of these dose optimization techniques: automated exposure control; mA and/or kV adjustment per patient size (includes targeted exams where dose is matched to clinical indication); or iterative reconstruction. COMPARISON: OT CXR PORTAP CHEST AP/PORT 03/08/2019 9:05 PM FINDINGS: Lungs: Unremarkable. No consolidation. No masses. Pleural space: Unremarkable. No pneumothorax. No pleural effusion. Heart: Aortic valve replacement. Aneurysmal dilatation ascending thoracic aorta greatest diameter 4.5 cm. Ectatic great vessels particularly brachial cephalic artery. There is no evidence of leak limited nonenhanced study. Extensive coronary artery calcifications. Mildly enlarged heart. Aorta: See Heart Finding. Lymph nodes: Unremarkable. No enlarged lymph nodes. Stomach and bowel: Distended stomach. Bones/joints: Median sternotomy. Advanced degenerative changes. Diffuse idiopathic skeletal hyperostosis. Soft tissues: Unremarkable. Other findings: Puff; No other acute disease seen on nonenhanced study. As Above. IMPRESSION: 1. Aortic valve replacement. Aneurysmal dilatation ascending thoracic aorta greatest diameter 4.5 cm. Ectatic great vessels particularly the brachiacephalic artery. There is no evidence of leak on limited nonenhanced study. 2. Extensive coronary artery calcifications. Mildly enlarged heart. 3. Distended stomach. 4. No other acute disease seen on nonenhanced study. As Above. Dictated and Authenticated by: Lisandro Kitchen MD 03/09/2019 7:36 PM Eastern Time ([place] and [place]) Patient Name: ADRIÁN WALL Medical Record#: [id number] Ordering Physician: Marcelo Chavez MD Acct.#: [id number] : 1950 Age: 68 Sex: M Location: [address] [place] [address] MEDICAL/TELEMETRY Exam Date: 03/08/192101 ADM Status: ADM IN Order Information: CHEST AP/PORT Accession Number: [id number] CPT: 62879 HISTORY: chest pain COMPARISONS: November 23, 2018 VIEWS: 1: frontal AP view of the chest at 9:10 PM FINDINGS: LINES AND TUBES: None. CARDIOMEDIASTINAL SILHOUETTE: The cardiac silhouette is enlarged. A prosthetic aortic valve is noted. The cardiomediastinal silhouette is otherwise normal for portable technique. PLEURA: The costophrenic angles are sharp. No pleural abnormalities are noted. LUNG PARENCHYMA: The lungs are clear. ABDOMEN: The upper abdomen is clear. There is no subphrenic gas. BONES AND SOFT TISSUES: The patient is status post median sternotomy. IMPRESSION: CARDIOMEGALY. R1F Preliminary Imaging Read R1F Nutrition: heart healthy diet Impression: This is a 68 year old male with known CAD, s/p remote CABG, AVR, aortic aneurysm repair, CKD stage 5 not on dialysis that presented to the ED with c/o chest pain, transferred to ICU for NTG drip, r/o ACS: Diagnoses: 1. Chest Pain, r/o ACS 2. Stage 5 CKD 3. Hx of Aortic Aneurysm with Repair 4. Anemia, AOCD 5. HLP Plan: Neuro - A&O, no active issues CV - NTG discontinued overnight, currently pain free, also appears that morphine was more helpful than NTG - EKG with no ischemic changes during chest pain, reviewed with Dr. Borden - Troponins trended down, 0.36/0.24/0.24/0.19/0.20 - Heparin drip discontinued - Sed rate is 0.37, not remarkably high to indicate pericarditis - CT chest with no dissection, although limited by non-contrast study, remains hemodynamically stable - CT cervical spine, however, does show significant amount of disc and spine disease which could account for a large portion of neck, jaw and shoulder pain that patient was experiencing. - Records from [facility] in [place] this past Monday show perfusion abnormality in the mid to distal inferior wall at rest with worsening on stress images with moderate to severe ischemia in the inferior, lateral and apex. Also noted decreased EF at 36%. However, bedside ECHO with Dr. Borden shows preserved EF of 50-55%. Discrepancy is unclear. - Continue amlodipine, statin, BB, hold imdur while on NTG drip - Not on ASA as outpatient, started daily today, will defer to outpatient tour director regarding utility of initiating plavix for medical mgmt of known CAD based on last cath, however, if cspine is a problem and requires intervention (injection or surgery), would need to be off plavix - [facility] initially contacted for possible transfer for cardiac cath, as we are unable to provide emergent HD in the event of contrast induced nephropathy and patient is being prepped for PD in the community, was trying to avoid HD; however, patient has agreed to hemodialysis in the event of renal failure post cath if necessary. At this time, it does NOT appear that the patient will require urgent cath or intervention for ACS. Would recommend continued close outpatient follow up. Will defer to cardiology for continued recommendations. GI - No current issues - Heart healthy diet Renal - BUN/creat 91/4.63 with normal lytes, sees Dr. Whipple outpatient - Renal US in November 2018 indicates medical renal disease Endocrine - Slightly elevated blood glucose, no hx of diabetes, A1c pending MSK/Skin - CT cervical spine as above - Will start flexeril and continue morphine PRN - Should have referral for outpatient neurosurgery to evaluation cspine, no neurovascular compromise appreciated ID - No fever or white count, non toxic appearing HEME - AOCD likely 2/2 renal disease, H&H stable continue to monitor CBC DVT Prophy - Off heparin gtt, SCDs and ambulate Full Code Disposition: At this time, patient will not be transferred to [facility]. In the event that the patient decompensates, eg, troponins rise, renal failure worsens or there are acute EKG changes, patient will have to be transferred to higher level of care with open heart and emergent dialysis capabilities. At this time, patient is medically optimized for transfer back to telemetry floor. Critical Care Time: 40 minutes
[2019-03-10] MEDS: Polyethylene Glycol 3350* 17 GM PACKET PO SCH (12:30)
--- NOTE | 2019-03-10 15:48 | PN ---
Subjective Date of Service: 03/10/19 - CC: neck and chest pain Interval History: Pain improved today in neck and chest, but still notes soreness posterior neck. No SOB, no nausea. ROS: + constipation, worse now than admission. Pt was taken off ASA in the past due to GI bleeding (and secondary angina). Medications Active Medications: Albuterol/Ipratropium (Combivent Respimat(Nf)) 1 puff INH QID [facility]; Protocol Last Admin: 03/10/19 12:35 Dose: Not Given Amlodipine Besylate (Norvasc Tab*) 10 mg PO DAILY [facility] Last Admin: 03/10/19 07:45 Dose: 10 mg Aspirin (Aspirin Ec Tab*) 81 mg PO DAILY [facility] Last Admin: 03/10/19 10:34 Dose: 81 mg Atorvastatin Calcium (Lipitor*) 40 mg PO DAILY [facility] Last Admin: 03/10/19 07:45 Dose: 40 mg Cyclobenzaprine HCl (Flexeril Tab*) 10 mg PO TID PRN PRN Reason: neck pain Fluticasone Propionate (Flonase Nasal Vincent 50mcg*) 2 spray BOTH [place]AR[place] DAILY [facility] Last Admin: 03/10/19 09:12 Dose: Not Given Hydralazine HCl (Apresoline Tab*) 50 mg PO TID [facility] Last Admin: 03/10/19 13:55 Dose: 50 mg Lisinopril (Prinivil Tab*) 20 mg PO DAILY [facility] Last Admin: 03/10/19 07:45 Dose: 20 mg Metoprolol Succinate (Toprol Xl Tab*) 12.5 mg PO DAILY [facility] Last Admin: 03/10/19 07:45 Dose: 12.5 mg Morphine Sulfate (Morphine Inj (Syringe)*) 4 mg IV Q2H PRN PRN Reason: PAIN - SEVERE Last Admin: 03/09/19 19:14 Dose: 4 mg Polyethylene Glycol/Electrolytes (Miralax*) 17 gm PO DAILY [facility] Last Admin: 03/10/19 12:30 Dose: 17 gm Torsemide (Demadex*) 80 mg PO DAILY [facility] Last Admin: 03/10/19 10:34 Dose: 80 mg Objective Vital Signs: Temp Pulse Resp BP Pulse Ox 98 F 62 18 152/63 99 03/10/19 14:33 03/10/19 14:33 03/10/19 14:33 03/10/19 14:33 03/10/19 14:33 Vital Signs - 12 hr Temp Pulse Resp BP Pulse Ox 03/10/19 14:33 98 F 62 18 152/63 99 03/10/19 11:58 97.8 F 03/10/19 10:34 58 18 142/64 96 03/10/19 10:30 60 151/66 96 03/10/19 10:00 59 15 152/73 96 03/10/19 09:30 56 14 163/74 97 03/10/19 09:00 70 16 149/72 99 03/10/19 08:30 56 165/74 99 03/10/19 08:00 56 16 159/66 95 03/10/19 07:45 53 151/72 97 03/10/19 07:31 52 164/70 97 03/10/19 07:23 97.8 F 03/10/19 07:15 54 15 161/71 97 03/10/19 07:00 64 17 177/85 97 03/10/19 06:45 58 15 176/73 98 03/10/19 06:15 49 13 163/66 97 03/10/19 06:00 52 14 149/70 97 03/10/19 05:45 55 10 155/70 96 03/10/19 05:31 54 19 165/73 98 03/10/19 05:15 64 20 136/76 97 03/10/19 05:00 55 15 150/68 97 03/10/19 04:45 51 12 168/65 96 03/10/19 04:30 50 14 157/67 96 03/10/19 04:15 51 10 156/68 96 03/10/19 04:00 56 12 182/77 97 03/10/19 03:45 55 14 159/65 96 Oxygen Devices in Use Now: None Appearance: older middle aged male, standing in room, appears comfortable. Eyes: No Scleral Icterus, PERRLA Ears/Nose/Mouth/Throat: Mucous Membranes Moist Neck: Trachea Midline, No Thyroid Enlargement, Masses Respiratory: Symmetrical Chest Expansion and Respiratory Effort, Clear to Auscultation Cardiovascular: RRR - 1-2/6 early peaking murmur, crisp mechanical heart sounds throughout. Abdominal: - - normal bowel sounds. Extremities: No Edema, No Clubbing, Cyanosis Skin: No Rash or Ulcers Neurological: Alert and Oriented x 3, NL Gait, NL Muscle Strength and Tone Lines/Tubes/Other Access: Clean, Dry and Intact Peripheral IV Laboratory Results: 03/10/19 05:14 03/10/19 05:14 INR (Anticoag Therapy) 1.94 (0.82-1.09) H 03/09/19 03:49 APTT 64.1 seconds (26.0-38.0) H 03/10/19 05:14 Total Bilirubin 0.60 mg/dL (0.2-1.0) 03/08/19 21:38 AST 19 U/L (13-39) 03/08/19 21:38 ALT 14 U/L (7-52) 03/08/19 21:38 Alkaline Phosphatase 55 U/L (34-104) 03/08/19 21:38 Total Protein 7.2 g/dL (6.4-8.9) 03/08/19 21:38 Albumin 4.2 g/dL (3.2-5.2) 03/08/19 21:38 Globulin 3.0 g/dL (2-4) 03/08/19 21:38 Albumin/Globulin Ratio 1.4 (1-3) 03/08/19 21:38 Triglycerides 174 mg/dL 03/10/19 05:14 Cholesterol 82 mg/dL 03/10/19 05:14 LDL Cholesterol 23 mg/dL 03/10/19 05:14 HDL Cholesterol 23.8 mg/dL 03/10/19 05:14 03/08/19 03/09/19 03/09/19 21:38 00:11 03:40 Troponin I 0.33 H* 0.36 H* 0.24 H* 03/09/19 03/09/19 03/09/19 13:54 16:55 19:46 Troponin I 0.24 H* 0.19 H* 0.20 H* Diagnostic Imaging: PROCEDURE INFORMATION: Exam: CT Chest Without Contrast Exam date and time: 03/09/2019 6:27 PM Age: 68 years old Clinical indication: Other: Eval aortic aneurysm repair/chest pain; Prior surgery; Patient HX: Physician looking at jxn between carotids and aorta, looking for possible leaks in repair. Also requested the thin images be sent. TECHNIQUE: Imaging protocol: Computed tomography of the chest without contrast. Radiation optimization: All CT scans at this facility use at least one of these dose optimization techniques: automated exposure control; mA and/or kV adjustment per patient size (includes targeted exams where dose is matched to clinical indication); or iterative reconstruction. COMPARISON: OT CXR PORTAP CHEST AP/PORT 03/08/2019 9:05 PM FINDINGS: Lungs: Unremarkable. No consolidation. No masses. Pleural space: Unremarkable. No pneumothorax. No pleural effusion. Heart: Aortic valve replacement. Aneurysmal dilatation ascending thoracic aorta greatest diameter 4.5 cm. Ectatic great vessels particularly brachial cephalic artery. There is no evidence of leak limited nonenhanced study. Extensive coronary artery calcifications. Mildly enlarged heart. Aorta: See Heart Finding. Lymph nodes: Unremarkable. No enlarged lymph nodes. Stomach and bowel: Distended stomach. Bones/joints: Median sternotomy. Advanced degenerative changes. Diffuse idiopathic skeletal hyperostosis. Soft tissues: Unremarkable. Other findings: Puff; No other acute disease seen on nonenhanced study. As Above. IMPRESSION: 1. Aortic valve replacement. Aneurysmal dilatation ascending thoracic aorta greatest diameter 4.5 cm. Ectatic great vessels particularly the brachiacephalic artery. There is no evidence of leak on limited nonenhanced study. 2. Extensive coronary artery calcifications. Mildly enlarged heart. 3. Distended stomach. 4. No other acute disease seen on nonenhanced study. As Above. Dictated and Authenticated by: Lisandro Kitchen MD 03/09/2019 7:36 PM Eastern Time ([place] and [place]) Patient Name: ADRIÁN WALL Medical Record#: [id number] PROCEDURE INFORMATION: Exam: CT Cervical Spine Without Contrast Exam date and time: 03/09/2019 6:23 PM Age: 68 years old Clinical indication: Other: Pain TECHNIQUE: Imaging protocol: Computed tomography images of the cervical spine without contrast. Radiation optimization: All CT scans at this facility use at least one of these dose optimization techniques: automated exposure control; mA and/or kV adjustment per patient size (includes targeted exams where dose is matched to clinical indication); or iterative reconstruction. COMPARISON: No relevant prior studies available. FINDINGS: Vertebrae: No fracture or subluxation. Severe degenerative change throughout the cervical spine. Central canal narrowing is most pronounced at C4-C5 contributed to by I peripheral disc osteophyte complex and severe facet arthropathy with moderate to severe narrowing here. There are moderate central canal stenosis elsewhere. Discs/Spinal canal/Neural foramina: Multilevel primarily osteophytic neural foraminal stenoses including severe stenosis C3-C4 on the right, C4-C5 on the left, and C7-T1 on the left. Moderate stenoses elsewhere. Soft tissues: Unremarkable. Lungs: Lung apices are normal. Vasculature: Atherosclerosis. IMPRESSION: 1. No fracture or subluxation. 2. Severe degenerative change throughout the cervical spine. Central canal narrowing is most pronounced at C4-C5 contributed to by peripheral disc osteophyte complex and severe facet arthropathy with moderate to severe narrowing here. There are moderate central canal stenosis elsewhere. 3. Multilevel primarily osteophytic neural foraminal stenoses including severe stenosis C3-C4 on the right, C4-C5 on the left, and C7-T1 on the left. Moderate stenoses elsewhere. Dictated and Authenticated by: Lisandro Kitchen MD 03/09/2019 7:28 PM Eastern Time ([place] and [place]) ECHO TODAY not imported into chart, EF 50%, mild apical hypokinesis, good prosthetic valve function, aorta w/o acute pathology s/p repair-graft, no PC effusion. Assessment/Plan 68 yo male who presented in 2007 with severe dilation of the ascending aorta, severe AI and CAD who underwent: AVR, [facility] mechanical #27 Aortic root graft 3V CABG LUCIO to LAD, SVG to PD, SVG to OM. Has severe stage 5 CKD with 2ary anemia, getting worked up for HD, not on. The patient underwent stress test as pre op for I believe fistula, had neck pain , presented here with posterior neck pain with radiation to back/axilla. ECG stable. Small bump in troponins. Stress test last week markedly abnormal. Work up here via CT I- and echos revealed severe cervical spine disease. No effusions. No evidence of aortic pathology. PAIN: Likely related to spinal stenosis, pain different than original angina. Hospitalist to manage. CAD+troponins I don't have full cath report of 2017, but appears to be at risk for demand ischemia and this presentation may represent demand from significant pain. The patient's abnormal stress test now and in the past with elevated troponins however could represent large vessel disease as well. Cath very risky with CKD, no urgent cath planned and did contact [facility] over the weekend (see consult, notes from yesterday). Continue with aggressive risk factor modification Lipids controlled BP high now: If OK with renal could increase ACEI Option of changing Toprol to Coreg (HR slow enough so don't recommend increase in pure BB) Addressing pain and constipation may help as well. ASA was added, Dr Galvin can evaluate in the future to continue, stop, replace with another antiplatelet. I did not want to start Plavix as procedures may be needed in the near future. Needs f/u with Dr Galvin in my opinion this week. CKD: Defer to nephrology, but did discuss with the patient potential decline in morbitity with over long delay in dialyisis and he is aware other medical issues would be easier to manage/coordinate with CKD if he was on dialysis.
[2019-03-11] MEDS: Albuterol/Ipratropium RESP(NF) MDI (Combivent Respimat) INH SCH (07:13)
[2019-03-11 08:16] VITALS: BP 143/58
--- NOTE | 2019-03-11 09:39 | PN ---
Progress Note - Progress Note Date of Service: 03/11/19 Note: Time spent on discharge including exam of patient, discussion with pat, nurse, CM, Dr. Nolasco, review of EHR and preparation of discharge documents is 45 minutes.
[2019-03-11] MEDS: Polyethylene Glycol 3350* 17 GM PACKET PO SCH (10:10)
[2019-03-11] MEDS: Torsemide TAB* 20 MG PO SCH (10:11)
[2019-03-11] MEDS: amLODIPine TAB* 5 MG PO SCH (10:12)
[2019-03-11] MEDS: hydrALAZINE TAB* 25 MG PO SCH (10:12)
[2019-03-11] MEDS: Metoprolol Succinate XL TAB* 25 MG PO SCH (10:13)
[2019-03-11] MEDS: Atorvastatin* 40 MG TAB PO SCH (10:13)
[2019-03-11] MEDS: Lisinopril TAB* 10 MG PO SCH (10:13)
[2019-03-11] MEDS: Fluticasone NASAL SPRAY 50MCG* 16 gm SPRAY BTL BOTH NARES SCH (10:14)
[2019-03-11] MEDS: Aspirin EC TAB* 81 MG TAB.EC PO SCH (10:14)
--- NOTE | 2019-03-11 12:46 | DS ---
CC: Dr. Farmer; Dr. Ndiaye * DISCHARGE SUMMARY: DATE OF ADMISSION: DATE OF DISCHARGE: 03/11/19 HISTORY OF PRESENT ILLNESS/HOSPITAL COURSE: This 68-year-old man presented with pain in the back of his neck radiating down his left scapula and his left shoulder and arm. He said it was similar to a heart attack he has had in the past, but not exactly the same. He has had anginal attacks, which produced anterior left chest pain. The patient was put on a nitroglycerin drip. This was later discontinued. He had a CT scan of the cervical spine, which showed severe degenerative changes in the spine with [id number] central spinal canal stenosis. His pain improved. His troponins were elevated probably consistent with his degree of renal failure and were declining during this hospital stay. He was seen in consultation by Dr. Borden. A bedside echo showed an ejection fraction of over 50%. This does not agree with the results seen in [place], the explanation of which is not clear. The patient was on a heparin drip until about 11 in the morning on 03/10/19. He will resume his warfarin on the day of discharge at his usual dose. He was told get an INR in about a week. Discussion with the patient, the hospitalist team and Dr. Borden came to the conclusion that he will need to have his renal failure addressed as an outpatient. He has already had 1 appointment to see a surgeon for peritoneal dialysis access and he will follow up with this as well as with his primary business trainer, Dr. 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 He has also had been looking into the possibility of renal transplant. No changes were made in his medication regimen. FINAL DIAGNOSES: 1. Chest pain, likely related to severe cervical spinal stenosis. 2. Coronary artery disease with mechanical aortic heart valve replacement. 3. Stage 5 renal failure, pre-dialysis stage. 4. Anemia of chronic disease. DISCHARGE MEDICATIONS: 1. Warfarin 2 tablets every day 5 days a week and 1 tablet Monday and . 2. Lisinopril 20 mg daily. 3. Atorvastatin 40 mg daily. 4. Hydralazine 50 mg t.i.d. 5. Amlodipine 10 mg daily. 6. Fluticasone nasal spray 2 sprays both nares daily. 7. Combivent Respimat 1 puff 4 times daily. 8. Isosorbide mononitrate 60 mg daily. 9. Nitroglycerin 0.4 mg sublingual p.r.n. 10. Torsemide 80 mg daily. 11. Epoetin 10,000 units every Monday and . 12. Metoprolol succinate 12.5 mg daily. 13. Ferrous sulfate 325 mg daily. CONDITION ON DISCHARGE: Improved. DISPOSITION ON DISCHARGE: Discharged home. [id number]/[facility] #: [id number] [facility]
== END 2019-03-11 11:30 | disposition home or self-care (01) | DRG 552 ==
LOC: ED 20:48 → MEDTELE 03-09 00:19 → ICU 03-09 14:15 → MEDTELE 03-10 12:01
PROVIDERS: ADMIT Student in an Organized Health Care Education/Training Program; ATTEND Internal Medicine
DX: M48.02 Spinal stenosis, cervical region (principal); I13.2 Hypertensive heart and chronic kidney disease with heart failure and with stage 5 chronic kidney disease, or end stage renal disease; N18.5 Chronic kidney disease, stage 5; I25.10 Atherosclerotic heart disease of native coronary artery without angina pectoris; I50.9 Heart failure, unspecified; E78.00 Pure hypercholesterolemia, unspecified; E78.5 Hyperlipidemia, unspecified; J45.909 Unspecified asthma, uncomplicated; F32.9 Major depressive disorder, single episode, unspecified; R79.89 Other specified abnormal findings of blood chemistry; I48.0 Paroxysmal atrial fibrillation; D63.1 Anemia in chronic kidney disease; M54.12 Radiculopathy, cervical region; K59.00 Constipation, unspecified; Z95.2 Presence of prosthetic heart valve; Z88.8 Allergy status to other drugs, medicaments and biological substances; Z95.1 Presence of aortocoronary bypass graft; I25.2 Old myocardial infarction; Z87.891 Personal history of nicotine dependence; Z79.01 Long term (current) use of anticoagulants; Z79.899 Other long term (current) drug therapy; Z79.51 Long term (current) use of inhaled steroids
CPT/HCPCS: 36415; 71045; 71250; 72125; 80048; 80053; 80061; 82565; 83735; 84484; 84520; 85025; 85379; 85610; 85652; 85730; 93005; 93306; 96374; 99284; A9270-GY; C8929; J1644; J2270